=== PATIENT | female | born 1965 | race Caucasian/White ===

== ENCOUNTER 2020-08-01 15:41 | Observation (INO) | payer BC ==
--- OUTSIDE RECORDS SUMMARY | 2020-08-01 15:43 | XMS REPORT | Clinical Summary ---
:1965 Author Organization [facility] Address [address] [place] [address] Care Team Providers Name Role Phone Dori Hussein MD Primary Care Provider Allergies No Known Active Allergies Medications No known medications Active Problems Not on file Surgical History Surgery Date Site/Laterality Comments RIB FRACTURE SURGERY Medical History Medical History Date Comments Diabetes mellitus (HCC) High cholesterol Hypertension Social History Tobacco Use Types Packs/Day Years Used Date Never Smoker Alcohol Use Drinks/Week oz/Week Comments No Sex Assigned at Date Recorded Not on file Last Filed Vital Signs Not on file Plan of Treatment Health Maintenance Due Date Last Done Comments CERVICAL CANCER SCREENING 1984 BREAST CANCER SCREENING 2013 COLONOSCOPY SCREENING 2013 SHINGLES VACCINES (#1) 2013 INFLUENZA VACCINE 05/06/2020 Results Not on fileafter 08/01/2019 Advance Directives For more information, please contact: [phone] Type Date Recorded Patient Real Estate Legal Assistant Explanati on Advance Directives, Living Will and Medical Power of Wildlife Removal Specialist
[2020-08-01 17:02] LABS: Basophils % 0.9 % (0-1.3); Hematocrit 48.5 % (36.0-45.0); MPV 8.5 fL (7.6-11.3); RBC Red Blood Cell Count 5.04 M/uL (3.86-4.86)
[2020-08-01 17:05] LABS: Protime INR 0.8
[2020-08-01] MEDS ORDERED: ENOXAPARIN 100 MG/ML SYR SQ ONE (17:08)
[2020-08-01] MEDS ORDERED: ASPIRIN 81 MG CHEWABLE TABLET ONE (17:08)
[2020-08-01 17:23] LABS: ALT/SGPT 38 U/L (12-78); AST/SGOT 16 U/L (15-37); Albumin 3.6 g/dL (3.4-5.0); Alkaline Phosphatase 100 U/L (45-117); BUN Blood Urea Nitrogen 19 mg/dL (7-18); Bicarbonate 28 mmol/L (21-32); Bilirubin Direct 0.2 mg/dL (0-0.2); Bilirubin Total 0.9 mg/dL (0.2-1.0); Glucose Level 153 mg/dL (74-106); Magnesium 2.2 mg/dL (1.8-2.4); NT PRO-BNP 9 pg/mL (<125); Potassium 3.8 mmol/L (3.5-5.1); Protein, Total 7.6 g/dL (6.4-8.2); Sodium Level 140 mmol/L (136-145); Troponin (Emerg Dept Use Only) < 0.02 ng/mL (0.0-0.045)
--- NOTE | 2020-08-01 17:25 | RAD REPORT ---
EXAM DESCRIPTION: RAD - Chest Single View - 08/01/2020 5:07 pm CLINICAL HISTORY: CHEST PAIN Chest pain. COMPARISON: Chest Single View dated 10/15/2016; CHEST SINGLE VIEW dated 09/29/2014 FINDINGS: Portable technique limits examination quality. Minimal linear subsegmental atelectasis is present left lung base. The lungs are otherwise clear. The heart is normal in size. No displaced fractures. IMPRESSION: No acute intrathoracic process suspected.
[2020-08-01] MEDS ORDERED: NA CHLORIDE 0.9% 1,000 ML ONE (17:50)
--- NOTE | 2020-08-01 18:07 | RAD REPORT ---
EXAM DESCRIPTION: CT - Chest For Pe Angio - 08/01/2020 5:47 pm CLINICAL HISTORY: Chest pain. Dyspnea;Chest pain COMPARISON: No comparisons TECHNIQUE: CT angiogram of the pulmonary arteries was performed with MIP. All CT scans are performed using dose optimization technique as appropriate and may include automated exposure control or mA/KV adjustment according to patient size. FINDINGS: No evidence of pulmonary thromboembolism. No acute aortic finding demonstrated. The lungs are clear. No significant pericardial or pleural fluid. No concerning bony finding. Postsurgical changes are present about the stomach. IMPRESSION: No evidence of pulmonary thromboembolism. No acute lung findings.
--- NOTE | 2020-08-01 18:22 | EDPHYS ---
Physician Documentation [facility] Name: Cierra Sánchez Age: 54 yrs Sex: Female : 1965 Arrival Date: 08/01/2020 Time: 15:58 Bed 7 Private MD: LIAM Physician Tobias Morfin HPI: 08/01 16:45 This 54 yrs old Female presents to ER via Ambulatory with complaints of Chest kb Tightness, Shortness Of Breath. 16:45 The patient or guardian reports chest pain that is located primarily in the chest kb diffusely. Onset: today. The pain does not radiate. Associated signs and symptoms: Pertinent positives: shortness of breath. The chest pain is described as tightness. Duration: The patient or guardian reports a single episode, that is still ongoing. Modifying factors: The symptoms are alleviated by nothing. the symptoms are aggravated by nothing. Severity of pain: At its worst the pain was moderate in the emergency department the pain is unchanged. The patient has not experienced similar symptoms in the past. The patient has not recently seen a physician. Pt reports headache for 2 weeks with malaise. States she started having chest tightness and shortness of breath today so she came in. Had stress test and echo [address] Dyer. . Historical: - Allergies: 16:27 No Known Allergies; ca1 - Home Meds: 16:27 losartan 100 mg oral tab 1 tab once daily [Active]; Synthroid 150 mcg Oral tab 1 tab ca1 once daily for Hypothyroidism [Active]; Xigduo XR 10-500 mg oral TBph 1 tab once daily [Active]; Trulicity 1.5 mg/0.5 mL subcutaneous pnij 0.5 mL once wkly [Active]; atorvastatin 20 mg oral tab 1 tab once daily [Active]; Vitamin D3 2,000 unit Oral tab [Active]; venlafaxine 150 mg oral cp24 1 cap once daily [Active]; Zyrtec 10 mg Oral tab 1 tab once daily [Active]; - PMHx: 16:27 Diabetes - NIDDM; Hypertension; Hypothyroidism; seasonal allergies; sleep apena; Sleep ca1 Apnea; - PSHx: 16:27 Cholecystectomy; ; tummy tuck; upper rib resection; gastric sleeve; ca1 - Immunization history:: Adult Immunizations up to date, Flu vaccine is not up to date. It has been more than one year since last vaccine. - Social history:: Smoking status: Patient denies any tobacco usage or history of. ROS: 16:43 Constitutional: Negative for fever, chills, and weight loss, Abdomen/GI: Negative for kb abdominal pain, nausea, vomiting, diarrhea, and constipation, Back: Negative for injury and pain, MS/Extremity: Negative for injury and deformity, Skin: Negative for injury, rash, and discoloration. 16:43 Constitutional: Positive for malaise. 16:43 Cardiovascular: Positive for chest pain, Negative for edema, orthopnea, palpitations, paroxysmal nocturnal dyspnea. 16:43 Respiratory: Positive for shortness of breath, Negative for cough, dyspnea on exertion, hemoptysis, orthopnea, pleurisy, sputum production, wheezing. 16:43 Neuro: Positive for headache. Exam: 16:44 Constitutional: This is a well developed, well nourished patient who is awake, alert, kb and in no acute distress. Head/Face: Normocephalic, atraumatic. Chest/axilla: Normal chest wall appearance and motion. Nontender with no deformity. No lesions are appreciated. Cardiovascular: Regular rate and rhythm with a normal S1 and S2. No gallops, murmurs, or rubs. Normal PMI, no JVD. No pulse deficits. Respiratory: Lungs have equal breath sounds bilaterally, clear to auscultation and percussion. No rales, rhonchi or wheezes noted. No increased work of breathing, no retractions or nasal flaring. Abdomen/GI: Soft, non-tender, with normal bowel sounds. No distension or tympany. No guarding or rebound. No evidence of tenderness throughout. Skin: Warm, dry with normal turgor. Normal color with no rashes, no lesions, and no evidence of cellulitis. MS/ Extremity: Pulses equal, no cyanosis. Neurovascular intact. Full, normal range of motion. Neuro: Awake and alert, GCS 15, oriented to person, place, time, and situation. Cranial nerves II-XII grossly intact. Motor strength 5/5 in all extremities. Sensory grossly intact. Cerebellar exam normal. Normal gait. Vital Signs: 16:18 BP 142 / 84; Pulse 111; Resp 17 S; Temp 98.4(TE); Pulse Ox 99% on R/A; Weight 99.79 kg ca1 (R); Height 5 ft. 8 in. (172.72 cm) (R); Pain 3/10; 17:30 BP 123 / 81; Pulse 98; Resp 14; Pulse Ox 97% on R/A; tw2 18:15 BP 117 / 73; Pulse 94; Resp 14; Pulse Ox 100% on R/A; tw2 20:41 BP 118 / 72; Pulse 86; Resp 18; Pulse Ox 97% on R/A; ea 21:24 BP 119 / 72; Pulse 83; Resp 19; Pulse Ox 97% on R/A; ea 16:18 Body Mass Index 33.45 (99.79 kg, 172.72 cm) ca1 MDM: 16:31 Patient medically screened. kb 16:42 ECG:. The patient was given aspirin in the Emergency Department. Data reviewed: vital kb signs, nurses notes. Data interpreted: Pulse oximetry: on room air is 99 %. Interpretation: normal. 18:18 Counseling: I had a detailed discussion with the patient and/or guardian regarding: the kb historical points, exam findings, and any diagnostic results supporting the discharge/admit diagnosis, lab results, radiology results, the need for further work-up and treatment in the hospital. Physician consultation: Garrick SEVILLA was contacted at 18:19, regarding admission, to the telemetry unit. patient's condition, and will see patient in ED, shortly. 08/01 16:36 Order name: Basic Metabolic Panel; Complete Time: 17:28 kb 08/01 16:36 Order name: CBC with Diff; Complete Time: 17:12 kb 08/01 16:36 Order name: LFT's; Complete Time: 17:28 kb 08/01 16:36 Order name: Magnesium; Complete Time: 17:28 kb 08/01 16:36 Order name: NT PRO-BNP; Complete Time: 17:28 kb 08/01 16:36 Order name: PT-INR; Complete Time: 17:13 kb 08/01 16:36 Order name: Troponin (emerg Dept Use Only); Complete Time: 17:28 kb 08/01 16:36 Order name: XRAY Chest (1 view); Complete Time: 17:29 kb 08/01 16:36 Order name: D-Dimer; Complete Time: 17:13 kb 08/01 17:13 Order name: CT Chest For PE Angio; Complete Time: 18:10 kb 08/01 19:13 Order name: COVID-19 ar5 08/01 19:37 Order name: CORONAVIRUS EDMD 08/01 20:46 Order name: SARS-COV-2 RT PCR EDMD 08/01 16:27 Order name: EKG; Complete Time: 16:28 ca1 08/01 16:27 Order name: EKG - Nurse/Tech; Complete Time: 16:27 ca1 08/01 16:36 Order name: Cardiac monitoring; Complete Time: 16:41 kb 08/01 16:36 Order name: IV Saline Lock; Complete Time: 16:55 kb 08/01 16:36 Order name: Labs collected and sent; Complete Time: 16:55 kb 08/01 16:36 Order name: O2 Per Protocol; Complete Time: 16:41 kb 08/01 16:36 Order name: O2 Sat Monitoring; Complete Time: 16:41 kb Administered Medications: 16:59 Drug: Aspirin Chewable Tablet 324 mg Route: PO; tw2 17:29 Follow up: Response: No adverse reaction tw2 16:59 Drug: Lovenox 1 mg/kg Route: Sub-Q; Site: right lower abdomen; tw2 17:29 Follow up: Response: No adverse reaction tw2 18:15 Drug: NS 0.9% 1000 ml Route: IV; Rate: 1000 ml; Site: right antecubital; tw2 20:55 Follow up: Response: No adverse reaction; IV Status: Completed infusion; IV Intake: ea 1000ml Disposition: 08/02 11:59 Co-signature as Attending Physician, Tobias Morfin MD I agree with the assessment and [facility] plan of care. Disposition: 08/01/20 18:22 Hospitalization ordered by Danny Naylor for Observation. Preliminary diagnosis is Chest pain, unspecified. - Bed requested for Telemetry/MedSurg (observation). - Status is Observation. ea - Condition is Stable. - Problem is new. - Symptoms are unchanged. Signatures: Dispatcher [employer] [facility] Mariam Marsh, EXHIBITIONS CURATOR-C EXHIBITIONS CURATOR-Tobias Rodarte MD MD cha Lasagna, Tonya RN RN tl1 Tania Way RN RN tw2 Carole Gallo RN Farzaneh Duncan ea RN RN ca1 Corrections: (The following items were deleted from the chart) 08/01 21:27 18:22 Hospitalization Ordered by Danny Naylor DO for Observation. Preliminary tl1 diagnosis is Chest pain, unspecified. Bed requested for Telemetry/MedSurg (observation). Status is Observation. Condition is Stable. Problem is new. Symptoms are unchanged. kb 22:37 21:27 08/01/2020 18:22 Hospitalization Ordered by Danny Naylor DO for Observation. ea Preliminary diagnosis is Chest pain, unspecified. Bed requested for Telemetry/MedSurg (observation). Status is Observation. Condition is Stable. Problem is new. Symptoms are unchanged. tl1
--- NOTE | 2020-08-01 18:22 | ER ---
Nurse's Notes [facility] [place], [place] Name: Cierra Sánchez Age: 54 yrs Sex: Female : 1965 Arrival Date: 08/01/2020 Time: 15:58 Bed 7 Private MD: Diagnosis: Chest pain, unspecified Presentation: 08/01 16:18 Chief complaint: Patient states: Midsternal Chest pain started about noon, radiates to ca1 the R shoulder, intermittent, tight 12/13. Pt wrote on paper: For the past 2 - 3 weeks, has a headache, migraine, tip of head tingling and numb feeling, hands tingly sometimes, heart and chest feels heavy and full, my heart racing. I just don't feel well. face, ears and cheeks feel numb every once in a while. Breakout of sweaty feeling out of nowhere. A little anxious. Today, started SOB with chest pain. Coronavirus screen: Client denies travel out of the [place] in the last 14 days. fatigue, headache, shortness of breath, Client presents with at least one sign or symptom that may indicate coronavirus-19. Standard/surgical mask placed on the client. Provider contacted for isolation considerations. The client reports previous COVID testing was negative. Date of collection: June 2020. Ebola Screen: Patient negative for fever greater than or equal to 101.5 degrees Fahrenheit, and additional compatible Ebola Virus Disease symptoms Patient denies exposure to infectious person. Patient denies travel to an Ebola-affected area in the 21 days before illness onset. No symptoms or risks identified at this time. Initial Sepsis Screen: Does the patient meet any 2 criteria? No. Patient's initial sepsis screen is negative. Does the patient have a suspected source of infection? No. Patient's initial sepsis screen is negative. Risk Assessment: Do you want to hurt yourself or someone else? Patient reports no desire to harm self or others. Onset of symptoms was August 01, 2020. 16:18 Method Of Arrival: Ambulatory ca1 16:18 Acuity: EMI 3 ca1 Triage Assessment: 16:27 Cardiovascular: Rhythm is sinus tachycardia. ca1 Historical: - Allergies: 16:27 No Known Allergies; ca1 - Home Meds: 16:27 losartan 100 mg oral tab 1 tab once daily [Active]; Synthroid 150 mcg Oral tab 1 tab ca1 once daily for Hypothyroidism [Active]; Xigduo XR 10-500 mg oral TBph 1 tab once daily [Active]; Trulicity 1.5 mg/0.5 mL subcutaneous pnij 0.5 mL once wkly [Active]; atorvastatin 20 mg oral tab 1 tab once daily [Active]; Vitamin D3 2,000 unit Oral tab [Active]; venlafaxine 150 mg oral cp24 1 cap once daily [Active]; Zyrtec 10 mg Oral tab 1 tab once daily [Active]; - PMHx: 16:27 Diabetes - NIDDM; Hypertension; Hypothyroidism; seasonal allergies; sleep apena; Sleep ca1 Apnea; - PSHx: 16:27 Cholecystectomy; ; tummy tuck; upper rib resection; gastric sleeve; ca1 - Immunization history:: Adult Immunizations up to date, Flu vaccine is not up to date. It has been more than one year since last vaccine. - Social history:: Smoking status: Patient denies any tobacco usage or history of. Screenin:30 Abuse screen: Denies threats or abuse. Nutritional screening: No deficits noted. tw2 Tuberculosis screening: No symptoms or risk factors identified. Fall Risk None identified. Assessment: 16:48 General: Appears in no apparent distress. obese, well groomed, Behavior is calm, tw2 cooperative, appropriate for age. Pain: Complains of pain in chest Pain radiates to right arm Pain began 3 hours ago. Neuro: Level of Consciousness is awake, alert, obeys commands, Oriented to person, place, time, situation. Cardiovascular: Heart tones S1 S2 Capillary refill < 3 seconds Patient's skin is warm and dry. Cardiovascular: Reports chest pain. Respiratory: Airway is patent Respiratory effort is even, unlabored, Respiratory pattern is regular, symmetrical, Breath sounds are clear bilaterally. GI: No signs and/or symptoms were reported involving the gastrointestinal system. Abdomen is round non-distended, obese, Bowel sounds present X 4 quads. : No signs and/or symptoms were reported regarding the genitourinary system. EENT: No signs and/or symptoms were reported regarding the EENT system. Derm: No signs and/or symptoms reported regarding the dermatologic system. Musculoskeletal: Range of motion: intact in all extremities. 17:30 Reassessment: Patient appears in no apparent distress at this time. No changes from tw2 previously documented assessment. Patient and/or family updated on plan of care and expected duration. Pain level reassessed. Patient is alert, oriented x 3, equal unlabored respirations, skin warm/dry/pink. 18:15 Reassessment: Patient appears in no apparent distress at this time. No changes from tw2 previously documented assessment. Patient and/or family updated on plan of care and expected duration. Pain level reassessed. Patient is alert, oriented x 3, equal unlabored respirations, skin warm/dry/pink. provider at bedside at this time. 19:30 Reassessment: Patient and/or family updated on plan of care and expected duration. Pain ea level reassessed. Patient is alert, oriented x 3, equal unlabored respirations, skin warm/dry/pink. 20:41 Reassessment: Patient and/or family updated on plan of care and expected duration. Pain ea level reassessed. Patient is alert, oriented x 3, equal unlabored respirations, skin warm/dry/pink. Awaiting on covid results. 21:18 Reassessment: Patient and/or family updated on plan of care and expected duration. Pain ea level reassessed. Patient is alert, oriented x 3, equal unlabored respirations, skin warm/dry/pink. Awaiting on room assignment. 21:45 Reassessment: Patient and/or family updated on plan of care and expected duration. Pain ea level reassessed. Patient is alert, oriented x 3, equal unlabored respirations, skin warm/dry/pink. Awaiting contract loader back for report. 22:37 Reassessment: Patient and/or family updated on plan of care and expected duration. Pain ea level reassessed. Patient is alert, oriented x 3, equal unlabored respirations, skin warm/dry/pink. Pt admitted to second floor, left ED via wheelchair per tech. Pt tolerating well. Vital Signs: 16:18 BP 142 / 84; Pulse 111; Resp 17 S; Temp 98.4(TE); Pulse Ox 99% on R/A; Weight 99.79 kg ca1 (R); Height 5 ft. 8 in. (172.72 cm) (R); Pain 3/10; 17:30 BP 123 / 81; Pulse 98; Resp 14; Pulse Ox 97% on R/A; tw2 18:15 BP 117 / 73; Pulse 94; Resp 14; Pulse Ox 100% on R/A; tw2 20:41 BP 118 / 72; Pulse 86; Resp 18; Pulse Ox 97% on R/A; ea 21:24 BP 119 / 72; Pulse 83; Resp 19; Pulse Ox 97% on R/A; ea 16:18 Body Mass Index 33.45 (99.79 kg, 172.72 cm) ca1 ED Course: 15:58 Patient arrived in ED. ds1 16:24 Triage completed. ca1 16:27 Arm band placed on right wrist. ca1 16:28 Placed in gown. Bed in low position. Adult w/ patient. school lunch monitor on. Pulse ox on. tw2 NIBP on. Warm blanket given. 16:30 Mariam Marsh FNP-C is PHCP. kb 16:31 Tobias Morfin MD is Attending Physician. kb 16:[address], RN is Primary Nurse. tw2 16:48 Inserted saline lock: 20 gauge in right antecubital area, using aseptic technique. tw2 Blood collected. Patient maintains SpO2 saturation greater than 95% on room air. 16:58 XRAY Chest (1 view) In Process Unspecified. EDMS 17:47 CT Chest For PE Angio In Process Unspecified. EDMS 18:21 Danny Naylor DO is Hospitalizing Provider. kb 19:00 Report given to BROOKE Randall. tw2 20:02 No provider procedures requiring assistance completed. Patient admitted, IV remains in ea place. 20:18 Primary Nurse role handed off by Tania Way RN mg2 20:39 Carole Gallo, BROOKE is Primary Nurse. ea Administered Medications: 16:59 Drug: Aspirin Chewable Tablet 324 mg Route: PO; tw2 17:29 Follow up: Response: No adverse reaction tw2 16:59 Drug: Lovenox 1 mg/kg Route: Sub-Q; Site: right lower abdomen; tw2 17:29 Follow up: Response: No adverse reaction tw2 18:15 Drug: NS 0.9% 1000 ml Route: IV; Rate: 1000 ml; Site: right antecubital; tw2 20:55 Follow up: Response: No adverse reaction; IV Status: Completed infusion; IV Intake: ea 1000ml Intake: 20:55 IV: 1000ml; Total: 1000ml. ea Outcome: 18:22 Decision to Hospitalize by Provider. kb 20:02 Instructed on the need for admit. ea 22:17 Admitted to Med/surg accompanied by tech, via wheelchair, room 218, with chart, Report ea called to Receiving nurse 22:17 Condition: stable 22:37 Patient left the ED. ea Signatures: Dispatcher [employer] [facility]PR Mariam Marsh, MACHINE FITTER-C MACHINE FITTER-Ckmana GuillenJody ds1 Tania Way RN RN tw2 Carole Gallo RN RN Ousmane Flor RN BROOKE mg2 Farzaneh Horan RN RN ca1 Corrections: (The following items were deleted from the chart) 22:37 22:18 Reassessment: Patient and/or family updated on plan of care and expected ea duration. Pain level reassessed. Patient is alert, oriented x 3, equal unlabored respirations, skin warm/dry/pink. Pt admitted to second floor, left ED via wheelchair per tech. Pt tolerating well. ea
--- NOTE | 2020-08-01 19:50 | P.HP ---
Certification for Inpatient Patient admitted to: Observation With expected LOS: <2 Midnights Patient will require the following post-hospital care: None Practitioner: I am a practitioner with admitting privileges, knowledge of patient current condition, hospital course, and medical plan of care. Services: Services provided to patient in accordance with Admission requirements found in Title 42 Section 412.3 of the Code of Federal Regulations <Garrick Rand - Last Filed: 08/01/20 19:47> Patient admitted to: Observation With expected LOS: <2 Midnights <Danny Naylor - Last Filed: 08/02/20 12:55> Patient History Date of Service: 08/01/20 Primary Care Provider: Dori Patel Reason for admission: Chest pain History of Present Illness: 54-year-old female with history of diabetes mellitus type 2, hypertension, hyperlipidemia, hypothyroidism presents emergency department for chest pain and palpitations. Patient reports that she is sitting at her desk at work and began to have a sensation of chest fullness in addition to palpitations and diaphoresis that lasted for approximately 1-2 hr. Patient reports pain was nonradiating, improved with rest. Patient had recent stress test/echocardiogram with Dr. Dyer approximately 2 months ago which was reported to be normal. Patient's initial workup in the emergency department was normal, patient in normal sinus rhythm, EKG with nonspecific findings, troponin negative D-dimer w as elevated at 651, CT PE protocol was negative for any acute findings.. ED provider wishes to admit patient for further evaluation and management. When I saw the patient in the emergency department she is awake, alert, oriented x3. Patient no longer having chest pain at this time. Patient is agreeable to observation admit for trending of troponins and to speak with cardiology in the morning. - Past Medical/Surgical History Diabetic: Yes -: Diabetes mellitus type 2 -: Hypertension -: Hyperlipidemia -: Hypothyroidism -: -: Tummy-tuck -: rib-resection -: carpal tunel Psychosocial/ Personal History: Patient lives at home with her - Family History Father -: Heart disease Notes: CHF Mother Notes: THYROID DISEASE Sister Notes: HYPOTHYROIDISM, DIABETES - Social History Smoking Status: Never smoker Alcohol use: Yes CD- Drugs: No Caffeine use: Yes Place of Residence: Home <Garrick Rand - Last Filed: 08/01/20 19:47> Date of Service: 08/02/20 Home medications list reviewed: Yes <Danny Naylor - Last Filed: 08/02/20 12:55> Allergies No Known Allergies Allergy (Verified 08/01/20 23:01) Home Medications: Cholecalciferol (Vitamin D3) [Vitamin D3] 5,000 unit PO DAILY 09/29/14 Losartan Potassium 50 mg PO DAILY 09/29/14 Atorvastatin Calcium [Lipitor*] 20 mg PO BEDTIME 08/01/20 Cetirizine HCl [Zyrtec] 10 mg PO DAILY 08/01/20 Dapagliflozin/Metformin HCl [Xigduo Xr 10 mg-500 mg Tablet] 1 each PO DAILY 08/01/20 Dulaglutide [Trulicity] 0.75 mg SQ EVERY 7TH DAY 08/01/20 Venlafaxine HCl [Venlafaxine HCl ER] 150 mg PO DAILY 08/01/20 Aspirin [Aspirin EC 81 MG] 81 mg PO DAILY #90 tablet. 08/02/20 Docosahexanoic AC/Epa [Fish Oil 1,000 MG CAP] 1 cap PO BID #60 cap 08/02/20 Levothyroxine Sodium [Synthroid] 0.125 mg PO DAILY #30 tablet 08/02/20 Review of Systems 10-point ROS is otherwise unremarkable Cardiovascular: Chest Pain, Palpitations <Garrick Rand - Last Filed: 08/01/20 19:47> Physical Examination - Physical Exam General: Alert, In no apparent distress HEENT: Atraumatic, PERRLA, Mucous membr. moist/pink Neck: Supple, 2+ carotid pulse no bruit, No LAD Respiratory: Clear to auscultation bilaterally, Normal air movement Cardiovascular: Regular rate/rhythm, Normal S1 S2 Gastrointestinal: Normal bowel sounds, No tenderness Musculoskeletal: No tenderness Integumentary: No rashes Neurological: Normal speech, Normal strength at 5/5 x4 extr, Normal tone, Normal affect - Studies Laboratory Data (last 24 hrs) 08/01/20 16:48: PT 9.5, INR 0.80 08/01/20 16:48: WBC 6.8, Hgb 16.3 H, Hct 48.5 H, Plt Count 215 08/01/20 16:48: Sodium 140, Potassium 3.8, BUN 19 H, Creatinine 0.90, Glucose 153 H, Magnesium 2.2, Total Bilirubin 0.9, AST 16, ALT 38, Alkaline Phosphatase 100 <Garrick Rand - Last Filed: 08/01/20 19:47> - Studies Laboratory Data (last 24 hrs) 08/01/20 16:48: PT 9.5, INR 0.80 08/01/20 16:48: WBC 6.8, Hgb 16.3 H, Hct 48.5 H, Plt Count 215 08/01/20 16:48: Sodium 140, Potassium 3.8, BUN 19 H, Creatinine 0.90, Glucose 153 H, Magnesium 2.2, Total Bilirubin 0.9, AST 16, ALT 38, Alkaline Phosphatase 100 <Danny Naylor - Last Filed: 08/02/20 12:55> Assessment and Plan - Plan Assessment Chest pain rule out ACS Diabetes mellitus type 2 Hypertension Hyperlipidemia Hypothyroidism Plan Chest pain rule out ACS: Cardiology consult in place, will try and troponins, monitor on telemetry. DVT prophylaxis Lovenox 40 mg subcutaneous once daily. Patient reportedly had recent stress test and echocardiogram which are not available for my viewing. These were reported to be negative. Continue home medications and add aspirin, metoprolol. Appreciate further input from cardiology. Diabetes mellitus type 2: A.c. HS Accu-Cheks, sliding scale insulin therapy. Hypertension: Continue home medications Hyperlipidemia: Continue home medications Hypothyroidism: Continue home medication. Discharge Plan: Home Plan to discharge in: 24 Hours - Advance Directives Does patient have a Living Will: No Does patient have a Durable POA for Healthcare: No - Code Status/Comfort Care Code Status Assessed: Yes (Full Code) Critical Care: No Time Spent Managing Pts Care (In Minutes): 55 <Garrick Rand - Last Filed: 08/01/20 19:47> - Plan Case discussed in detail with nurse pressure. Agree with evaluation and plan of care. Case discussed with Cardiology. No intervention needed at this time. Will plan for discharge. Please see discharge summary for details. <Danny Naylor - Last Filed: 08/02/20 12:55>
[2020-08-01] MEDS ORDERED: ATORVASTATIN 20 MG TAB PO SCH (22:41)
[2020-08-01] MEDS ORDERED: ACETAMINOPHEN 500 MG TAB PO PRN (22:41)
[2020-08-01] MEDS ORDERED: ONDANSETRON 4 MG/2 ML VIAL IV PRN (22:41)
[2020-08-01] MEDS: INSULIN -REGULAR HUMAN 50 UNIT/0.5 ML ML SQ SCH (22:41)
[2020-08-01 23:05] VITALS: BMI 35.6
[2020-08-01 23:27] VITALS: O2SAT 97
[2020-08-02 05:43] LABS: Basophils % 0.5 % (0-1.3); Hematocrit 45.2 % (36.0-45.0); Lymphocytes % 42.8 % (15.3-44.8); MPV 7.9 fL (7.6-11.3); RBC Red Blood Cell Count 4.65 M/uL (3.86-4.86)
[2020-08-02] MEDS ORDERED: METOPROLOL TAR 25 MG TAB PO SCH (06:00)
[2020-08-02] MEDS ORDERED: INFLUENZA VACCINE (for 3y+) 0.5 ML DOSE IMVAC ONE (06:00)
[2020-08-02 06:20] LABS: BUN Blood Urea Nitrogen 15 mg/dL (7-18); Bicarbonate 28 mmol/L (21-32); Glucose Level 121 mg/dL (74-106); HDL Cholesterol 61 mg/dL (40-60); LDL Cholesterol, Calculated 42 (<130); Phosphorus 3.5 mg/dL (2.5-4.9); Potassium 3.9 mmol/L (3.5-5.1); Sodium Level 143 mmol/L (136-145); Thyroid Stimulating Hormone 0.008 uIU/mL (0.360-3.740); Troponin I < 0.02 ng/mL (0.0-0.045)
[2020-08-02] MEDS ORDERED: LEVOTHYROXINE SOD 0.1 MG TAB PO SCH (06:30)
--- NOTE | 2020-08-02 07:21 | EKG ---
Test Date: 2020-08-01 Test Time: 16:18:26 Ensemble Member: DARION MEASUREMENT RESULTS: Intervals: Rate: 111 ND: 136 QRSD: 90 QT: 338 QTc: 459 [place]: P: 49 ND: 136 QRS: 83 T: 39 INTERPRETIVE STATEMENTS: Sinus tachycardia Nonspecific ST abnormality Abnormal ECG Compared to ECG 10/15/2016 19:04:02 ST (T wave) deviation now present Sinus rhythm no longer present Electronically Signed On 08-02-20 07:19:35 CDT by Hoang Dyer
[2020-08-02] MEDS: INSULIN -REGULAR HUMAN 50 UNIT/0.5 ML ML SQ SCH (07:30)
--- NOTE | 2020-08-02 08:22 | P.DS ---
Admission Date: 08/01/20 Discharge Date: 08/02/20 Primary Care Provider: Dr. Dori Patel([place], [place]) Disposition: ROUTINE DISCHARGE Discharge Condition: GOOD Reason for Admission: Chest pain Consultations: Cardiology-Dr. Dyer Procedures: COVID: Negative CT chest: FINDINGS: No evidence of pulmonary thromboembolism. No acute aortic finding demonstrated. The lungs are clear. No significant pericardial or pleural fluid. No concerning bony finding. Postsurgical changes are present about the stomach. IMPRESSION: No evidence of pulmonary thromboembolism. No acute lung findings. Medical Problem List: Chest pain atypical with palpitations Diabetes mellitus type 2 controlled Hypertension Hyperlipidemia Hypothyroidism Depression with anxiety Brief History of Present Illness: 54-year-old female with history of diabetes mellitus type 2, hyperten tigre, hyperlipidemia, and hypothyroidism. Patient presented with chest pain and palpitation. Patient had recent stress tests and echocardiogram done by Cardiology 2 months ago. Both were normal. Patient admitted for further evaluation and observation. Hospital Course: Patient presented with chest pain and palpitation. Patient admitted for further evaluation and treatment. D-dimer was slightly elevated. CT scan shows no pulmonary embolism or pneumonia. Cardiac enzymes unremarkable. Cardiology was consulted to further evaluate. Patient with recent cardiac stress test and echocardiogram which was unremarkable. Cardiology recommended no further cardiac inpatient evaluation. Her tsh was abnormal. Medication changes will be addressed. At discharge patient may continue with her current medications. Recommend follow up with cardiology in 1-2 weeks to follow up this hospitalization. Patient may continue with aspirin 81 mg daily. If chest pain persists patient may require heart catheterization as an outpatient. Patient with hypothyroidism. Patient had reported some palpitations. Tsh was abnormal at 0.008. Free T4 1.31. Patient previously on Synthroid 150 mcg daily. Will decrease medication at this time. At discharge she will continue with Synthroid 125 mcg daily. Recommend to recheck tsh and free T4 in 4-6 weeks to monitor her progress. Further adjustment in medication may be required at that time. This can be done with the help of her PCP. Patient with hyperlipidemia. LDL within normal range at 42. Triglyceride level slight elevated at 173. At discharge patient may continue with her Lipitor 20 mg daily. Will recommend to add fish oil 1000 mg twice daily. Recommend to continue with lifestyle modification education. Recommend to recheck fasting lipid panel in 4-6 weeks to monitor progress. Further adjustment may be required after that time. This can be addressed by cardiology or her PCP. Patient with hypertension. This has remained stable. At discharge she will continue with losartan 50 mg daily. Recommend blood pressure to maintain less than 130/80. Further adjustment can be done with the help of her PCP. Patient with diabetes mellitus type 2. This seems to be very well controlled. At discharge she will continue with her current medications of Xigduo 10/500 mg daily and Trulicity 1 injection every week. Recommend to maintain blood sugar less than 140 fasting and less than 200 after meals. Further adjustment can be done by her PCP. Recommend to recheck A1c every 3 months to monitor her progress. This can be done with the help of her PCP. Patient with depression and anxiety. At discharge she may continue with her current medication of Venlafaxine 150 mg daily. Vital Signs/Physical Exam: Temp Pulse Resp BP Pulse Ox 96.9 F 75 96 H 120/75 96 08/02/20 04:00 08/02/20 05:54 08/02/20 04:00 08/02/20 05:54 08/02/20 04:00 General: Alert, In no apparent distress, Oriented x3, Cooperative HEENT: Atraumatic Neck: Supple Respiratory: Clear to auscultation bilaterally, Normal air movement Cardiovascular: Normal pulses, Regular rate/rhythm Gastrointestinal: Normal bowel sounds, Soft and benign, Non-distended, No tenderness, No masses, No rebound, No guarding Integumentary: No tenderness/swelling, No erythema, No warmth, No cyanosis Neurological: Normal speech, Normal strength at 5/5 x4 extr, Normal tone, Normal affect Laboratory Data at Discharge: WBC 4.6 K/uL (4.3-10.9) D 08/02/20 05:23 Hgb 15.0 g/dL (12.0-15.0) 08/02/20 05:23 Hct 45.2 % (36.0-45.0) H 08/02/20 05:23 Plt Count 192 K/uL (152-406) 08/02/20 05:23 PT 9.5 SECONDS (9.5-12.5) 08/01/20 16:48 INR 0.80 08/01/20 16:48 Sodium 143 mmol/L (136-145) 08/02/20 05:23 Potassium 3.9 mmol/L (3.5-5.1) 08/02/20 05:23 BUN 15 mg/dL (7-18) 08/02/20 05:23 Creatinine 0.65 mg/dL (0.55-1.3) 08/02/20 05:23 Glucose 121 mg/dL (74-106) H 08/02/20 05:23 Phosphorus 3.5 mg/dL (2.5-4.9) 08/02/20 05:23 Magnesium 2.2 mg/dL (1.8-2.4) 08/01/20 16:48 Total Bilirubin 0.9 mg/dL (0.2-1.0) 08/01/20 16:48 AST 16 U/L (15-37) 08/01/20 16:48 ALT 38 U/L (12-78) 08/01/20 16:48 Alkaline Phosphatase 100 U/L (45-117) 08/01/20 16:48 Troponin I < 0.02 ng/mL (0.0-0.045) 08/02/20 05:23 Triglycerides 173 mg/dL (<150) H 08/02/20 05:23 Cholesterol 138 mg/dL (<200) 08/02/20 05:23 HDL Cholesterol 61 mg/dL (40-60) H 08/02/20 05:23 Cholesterol/HDL Ratio 2.26 08/02/20 05:23 Home Medications: Cholecalciferol (Vitamin D3) [Vitamin D3] 5,000 unit PO DAILY 09/29/14 Losartan Potassium 50 mg PO DAILY 09/29/14 Atorvastatin Calcium [Lipitor*] 20 mg PO BEDTIME 08/01/20 Cetirizine HCl [Zyrtec] 10 mg PO DAILY 08/01/20 Dapagliflozin/Metformin HCl [Xigduo Xr 10 mg-500 mg Tablet] 1 each PO DAILY 08/01/20 Dulaglutide [Trulicity] 0.75 mg SQ EVERY 7TH DAY 08/01/20 Venlafaxine HCl [Venlafaxine HCl ER] 150 mg PO DAILY 08/01/20 Aspirin [Aspirin EC 81 MG] 81 mg PO DAILY #90 tablet. 08/02/20 Docosahexanoic AC/Epa [Fish Oil 1,000 MG CAP] 1 cap PO BID #60 cap 08/02/20 Levothyroxine Sodium [Synthroid] 0.125 mg PO DAILY #30 tablet 08/02/20 New Medications: Aspirin [Aspirin EC 81 MG] 81 mg PO DAILY #90 tablet. Docosahexanoic AC/Epa [Fish Oil 1,000 MG CAP] 1 cap PO BID #60 cap Levothyroxine Sodium [Synthroid] 0.125 mg PO DAILY #30 tablet Patient Discharge Instructions: 1. Recommend follow up with her PCP in 1 week to follow up this hospitalization. 2. Patient presented with chest pain and palpitation. Patient admitted for further evaluation and treatment. D-dimer was slightly elevated. CT scan shows no pulmonary embolism or pneumonia. Cardiac enzymes unremarkable. Cardiology was consulted to further evaluate. Patient with recent cardiac stress test and echocardiogram which was unremarkable. Cardiology recommended no further cardiac inpatient evaluation. Her tsh was abnormal. Medication changes will be addressed. At discharge patient may continue with her current medications. Recommend follow up with cardiology in 1-2 weeks to follow up this hospitalization. Patient may continue with aspirin 81 mg daily. If chest pain persists patient may require heart catheterization as an outpatient. 3. Patient with hypothyroidism. Patient had reported some palpitations. Tsh was abnormal at 0.008. Free T4 1.31. Patient previously on Synthroid 150 mcg daily. Will decrease medication at this time. At discharge she will continue with Synthroid 125 mcg daily. Recommend to recheck tsh and free T4 in 4-6 weeks to monitor her progress. Further adjustment in medication may be required at that time. This can be done with the help of her PCP. 4. Patient with hyperlipidemia. LDL within normal range at 42. Triglyceride level slight elevated at 173. At discharge patient may continue with her Lipitor 20 mg daily. Will recommend to add fish oil 1000 mg twice daily. Recommend to continue with lifestyle modification education. Recommend to recheck fasting lipid panel in 4-6 weeks to monitor progress. Further adjustment may be required after that time. This can be addressed by cardiology or her PCP. 5. Patient with hypertension. This has remained stable. At discharge she will continue with losartan 50 mg daily. Recommend blood pressure to maintain less than 130/80. Further adjustment can be done with the help of her PCP. 6. Patient with diabetes mellitus type 2. This seems to be very well controlled. At discharge she will continue with her current medications of Xigduo 10/500 mg daily and Trulicity 1 injection every week. Recommend to maintain blood sugar less than 140 fasting and less than 200 after meals. Further adjustment can be done by her PCP. Recommend to recheck A1c every 3 months to monitor her progress. This can be done with the help of her PCP. 7. Patient with depression and anxiety. At discharge she may continue with her current medication of Venlafaxine 150 mg daily. Diet: AHA Activity: Ad eliana Followup: Dori Hussein MD [Primary Care Provider] - Time spent managing pt's care (in minutes): 55
[2020-08-02 08:33] VITALS: BP 116/68; TEMP 96.3
[2020-08-02] MEDS ORDERED: POTASSIUM CL SA 10 MEQ TAB PO ONE (09:00)
[2020-08-02] MEDS ORDERED: CETIRIZINE HCL 5 MG TABLET PO SCH (09:00)
[2020-08-02] MEDS ORDERED: ASPIRIN EC 81 MG TAB PO SCH (09:00)
[2020-08-02] MEDS ORDERED: VENLAFAXINE HCL XR 75 MG CAP PO SCH (09:00)
[2020-08-02] MEDS ORDERED: LOSARTAN POTASSIUM 50 MG TABLET PO SCH (09:00)
[2020-08-02] MEDS ORDERED: VITAMIN D 5,000 UNIT CAP PO SCH (09:00)
[2020-08-02] MEDS ORDERED: ENOXAPARIN 40 MG/0.4 ML SQ SCH (09:00)
--- NOTE | 2020-08-03 09:37 | CON ---
Date of Consultation: 08/02/2020 Reason For Consultation: Chest pain and palpitation. History Of Present Illness: Ms. Sánchez is a 54-year-old woman. She was admitted to Dr. Naylor. She normally sees Didi Dori Patel in [place]. The patient described feeling hot and flushed, had head ache. She felt some numbness in her teeth. She was nauseated after which she had palpitation. No s ignificant chest pain. Denied PND, orthopnea, pedal edema, palpitations, or syncope. Denied any fev er or chills. Her symptoms lasted about 30 to 45 minutes. Past Medical History: Negative. Allergies: NONE. Review of Systems: Noncontributory. Social History: Noncontributory. Family History: Negative. Medications: At home include venlafaxine, Lipitor, Xigduo, Trulicity, insulin, losartan and thyroid. Physical Examination: Vital Signs: Stable. She was afebrile. HEENT: Negative. Neck: Supple. No bruit. Chest: Clear to auscultation and percussion. Cardiac: Exam revealed a regular rhythm and rate. No murmurs, gallops, or rubs. Abdomen: Benign. Extremities: Revealed no clubbing, cyanosis, or edema. Diagnostic Data: Her glucose was 150. D-dimer 651. EKG is normal. Chest x-ray is normal. Troponi n is normal. Impression And Plan: Atypical chest pain with palpitation in a patient with history of dyslipidemia, diabetes, hypertension, and hypothyroidism. She has ruled out for an OR. Her symptoms are very aty pical. Ms. Sánchez I think can go home. I think she needs to have an outpatient echocardiogram a nd a MPI. I will make arrangements for that as an outpatient. From my standpoint, she can otherwise go home, and I will see her in the near future. FUNMILAYO/KRISTIE Voice ID: [id number] Report ID: [id number]
== END 2020-08-02 09:54 | disposition home or self-care (01) ==
LOC: ER 15:41 → ERHOLD 18:46 → 2ND 22:14
PROVIDERS: ADMIT Family Medicine; ATTEND Family Medicine
DX: R07.89 Other chest pain (principal); Z20.828 Contact with and (suspected) exposure to other viral communicable diseases; R00.0 Tachycardia, unspecified; R00.2 Palpitations; E11.9 Type 2 diabetes mellitus without complications; I10 Essential (primary) hypertension; E78.5 Hyperlipidemia, unspecified; E03.9 Hypothyroidism, unspecified; F41.8 Other specified anxiety disorders; Z79.84 Long term (current) use of oral hypoglycemic drugs; R94.31 Abnormal electrocardiogram [ECG] [EKG]; Z23 Encounter for immunization
CPT/HCPCS: 96361; 93005; 85025 ×2; 80048 ×2; 36415; 83735; 84100; 85610; 80061; 82947 ×2; 85379; 80076; 84443; 84484 ×3; 84439; 83880; 71275; 71045; 90471; 96360; 96372; 99285; U0003; Q9967; Q2035; J1650; J7030; G0378 ×2

== ENCOUNTER 2020-10-26 09:40 | Day surgery (SDC) | payer BC ==
[2020-10-20 10:43] VITALS: BMI 37.2
[2020-10-20 11:39] LABS: Absolute Lymphocytes (CBC) 1.9 K/uL (0.7-4.9); Basophils % 0.5 % (0-1.3); Hematocrit 48.2 % (36.0-45.0); MPV 8.6 fL (7.6-11.3); RBC Red Blood Cell Count 4.95 M/uL (3.86-4.86)
[2020-10-20 12:11] LABS: Potassium 4.5 mmol/L (3.5-5.1)
[2020-10-20 12:19] LABS: Protime INR 0.97
[~2020-10-26 09:40] MED LIST: HEPA 1000U/500MLS 0 UNIT/0 ML BAG IV ONE
[2020-10-26] MEDS ORDERED: LIDOCAINE 1% 20 ML MDV ONE (09:50)
[2020-10-26] MEDS ORDERED: HEPA 1000U/500MLS 2,000 UNIT/1,000 ML BAG IV ONE (09:50)
--- OUTSIDE RECORDS SUMMARY | 2020-10-26 10:02 | XMS REPORT | Clinical Summary ---
:1965 Author Organization [facility] Address [address] [place] [address] Care Team Providers Name Role Phone Dori [...] Health Maintenance Due Date Last Done Comments COVID-19 VACCINE (1 of 2) 1979 CERVICAL CANCER SCREENING 1984 BREAST CANCER SCREENING 2013 COLONOSCOPY SCREENING 2013 SHINGLES VACCINES (#1) 2013 INFLUENZA VACCINE 05/06/2020 Results Not on fileafter 10/26/2019 Advance Directives For more information, please contact: [phone] Type Date Recorded Patient Contracts Officer Explanati on Advance Directives, Living Will and Medical Power of Child Therapist
--- OUTSIDE RECORDS SUMMARY | 2020-10-26 10:02 | XMS REPORT | Continuity of Care Document ---
:1965 Author Organization [facility] t Address [address] [place] [address] Care Team Providers Name Role Phone Jessica Hussein MD Primary Care Physician Jessica Hussein Attending Clinician [phone] Problems This patient has no known problems. Allergies, Adverse Reactions, Alerts This patient has no known allergies or adverse reactions. Social History Social Habit Start Date Stop Date Quantity Comments Source Sex Assigned At [facility] ethodi Alcohol intake 2017-01-28 2017-01-28 Current [facility] 00:00:00 00:00:00 non-drinker of alcohol (finding) Smoking Status Start Date Stop Date Source Never smoker [facility] Medications This patient has no known medications. Procedures This patient has no known procedures. Plan of Care Planned Activity Planned Date Details Comments Source Future Scheduled 2020-05-06 INFLUENZA VACCINE [facility] 00:00:00 [code = INFLUENZA VACCINE] Future Scheduled 2013 BREAST CANCER [facility] 00:00:00 SCREENING [code = BREAST CANCER SCREENING] Future Scheduled 2013 COLONOSCOPY SCREENING [facility] 00:00:00 [code = COLONOSCOPY SCREENING] Future Scheduled 2013 SHINGLES VACCINES [place] [facility] 00:00:00 (#1) [code = SHINGLES VACCINES (#1)] Future Scheduled 1984 Screening for [facility] 00:00:00 malignant neoplasm of cervix (procedure) [code = 462714405] Future Scheduled 1979 COVID-19 VACCINE (1 [place] [facility] 00:00:00 of 2) [code = COVID-19 VACCINE (1 of 2)] Encounters Start End Encounter Admission Attending Care Care Encounter Source Date/Time Date/Time Type Type Clinicians Facility Department ID 2020-10-18 2020-10-18 Outpatient Dori Hussein [facility] 06b [id number] 00:00:00 00:00:00 Jessica [id number] Results This patient has no known results.
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
[2020-10-26] MEDS ORDERED: NA CHLORIDE 0.9% 500 ML ONE (10:14)
[2020-10-26] MEDS ORDERED: MIDAZOLAM HCL 2 MG/2 ML INJ ONE (10:51)
[2020-10-26] MEDS ORDERED: FENTANYL CITR 100 MCG/2 ML ONE (10:51)
[2020-10-26] MEDS ORDERED: HEPARIN 5000 UNIT/ML 1 ML VIAL ONE ×2 (10:52→10:54)
[2020-10-26] MEDS ORDERED: NICARDIPINE HCL 25 MG/10 ML IV ONE (10:53)
[2020-10-26] MEDS ORDERED: ATROPINE SULF 1 MG/10 ML SYR IV ONE (10:53)
[2020-10-26] MEDS ORDERED: NITROGLYCERIN 100 MCG/ML SYR (for cath lab use only) IV ONE (11:08)
[2020-10-26] MEDS ORDERED: NITROGLYCERIN/D5W 25 MG/250 ML BTL IV ONE (11:09)
[2020-10-26] MEDS ORDERED: VERAPAMIL HCL 10 MG/4 ML VIAL IV ONE (11:09)
--- NOTE | 2020-10-26 12:22 | OP ---
Date of Procedure: 10/26/2020 Surgeon: NIYAH WATSON Procedure Performed: 1.Selective coronary angiogram. 2.Left heart catheterization. Indication: Unstable angina. Access: Right radial artery 6-Indonesian, closed with TR band. Complications: None. Bleeding: Less than 5 mL. Anesthesia: Total sedation time was 15 minutes. Description Of Procedure: After risks, benefits, and alternatives were explained, the patient agreed to procedure and signed informed consent. The patient was brought into the cardiac catheterization laboratory, prepped and draped in usual sterile fashion. Then, we used fentanyl and Versed in increm ental doses to achieve adequate moderate sedation. Then, we accessed the right radial artery using p [employer] micropuncture kit and placed a 6-Indonesian slender sheath and then took a 5-Indonesian [place] cathet er into the aortic root, engaged left main, then right coronary artery and took standard views and th en the catheter was pushed across aortic valve over the wire into the LV. LVEDP was measured. Then upon pullback, there was no difference in gradient. Findings: 1.Left main is large and normal. 2.LAD is large and normal. 3.Left circumflex is moderate-sized, normal, and non dominant. 4.RCA is large dominant, no significant disease. 5.LVEDP of 9 mmHg. Impression: 1.Normal coronary arteries. 2.Normal LVEDP at 9 mmHg. Recommendations: 1.Medical management. 2.Discharge home once criteria met. SR/MODL Voice ID: [id number] Report ID: [id number]
[2020-10-26 14:30] VITALS: BP 117/80; TEMP 97.3; O2SAT 98
--- NOTE | 2020-11-27 21:18 | HP ---
Date of Admission: 10/26/2020 Chief Complaint: The patient is here for heart catheterization due to unstable angina. History Of Present Illness: This is a middle-aged female, history of diabetes, hypertension, dyslipi demia with symptoms suggestive of unstable angina, scheduled as an outpatient for coronary angiogram. She is asymptomatic today. Past Medical History: Diabetes, hypertension, hyperlipidemia, hypothyroidism. Medications: Refer to reconciliation sheet for detailed list. Allergies: NO KNOWN DRUG ALLERGIES. Social History: Does not smoke or drink. Does not use any drugs. Family History: No premature coronary artery disease or cancer. Review of Systems: All systems reviewed and they were negative except for what mentioned in the HPI. Physical Examination: Vital Signs: Temperature is 97.3, pulse 75, breathing 18, blood pressure is 117/80, saturating 98% o n room air. General: Pleasant middle-aged female, in no apparent distress. Head and Neck: Pupils are equal, reactive to light. Intact eye movements. No JVD. No cervical lym phadenopathy. Neck: Supple. Thyroid is not enlarged. Lungs: Clear to auscultation bilaterally. No rhonchi, rales, or crackles. No accessory muscle use. Heart: Regular rate and rhythm. No extra sounds. Abdomen: Soft, nontender. Bowel sounds positive. No organomegaly or cyanosis. Extremities: No edema, clubbing, or cyanosis. Intact pulses. Skin: No rashes. Neurologic: Alert, awake, oriented x3. No acute focal deficits appreciated. Lymph Nodes: No cervical lymphadenopathy. Investigations: Labs were reviewed. Assessment And Plan: Unstable angina. Plan: To proceed with coronary angiogram and left heart catheterization as planned. /KRISTIE Voice ID: [id number]
== END 2020-10-26 14:30 | disposition home or self-care (01) ==
LOC: CCL 09:40
PROVIDERS: ATTEND Internal Medicine
DX: I20.0 Unstable angina (principal); Z20.822 Contact with and (suspected) exposure to COVID-19
CPT/HCPCS: 85025; 80048; 36415; 85610; 82947; 85730; 93458; U0002; C1893; J1644 ×2; J2250; J3010; J7040

== ENCOUNTER 2021-02-25 17:46 | Emergency (ER) | payer BC ==
--- OUTSIDE RECORDS SUMMARY | 2021-02-25 17:49 | XMS REPORT | Continuity of Care Document ---
:1965 Author Organization [facility] t Address [address] [place] [address] Care Team Providers Name Role Phone Jessica Hussein MD Primary Care Physician Jessica Hussein Attending Clinician [phone] Problems This patient has no known problems. Allergies, Adverse Reactions, Alerts This patient has no known allergies or adverse reactions. Social History Social Habit Start Date Stop Date Quantity Comments Source Alcohol intake 2017-01-28 2017[facility]01-[facility] non-drinker of alcohol (finding) Sex Ass[birth year] [facility] 00:00:00 00:00:00 Smoking Status Start Date Stop Date Source Never smoker [facility] Medications This patient has no known medications. Procedures This patient has no known procedures. Plan of Care Planned Activity Planned Date Details Comments Source Future Scheduled 2021-05-06 INFLUENZA VACCINE [place] [facility] 00:00:00 [code = INFLUENZA VACCINE] Future Scheduled 2013 BREAST CANCER [facility] Test 00:00:00 SCREENING [code = BREAST CANCER SCREENING] Future Scheduled 2013 COLONOSCOPY SCREENING [facility] 00:00:00 [code = COLONOSCOPY SCREENING] Future Scheduled 2013 SHINGLES VACCINES [place] [facility] 00:00:00 (#1) [code = SHINGLES VACCINES (#1)] Future Scheduled 1984 [facility] malignant neoplasm of cervix (procedure) [code = 992445364] Future Scheduled 1975 COVID-19 VACCINE (1) [facility] 00:00:00 [code = COVID-19 VACCINE (1)] Encounters Start End Encounter Admission Attending Care Care Encounter Source Date/Time Date/Time Type Type Clinicians Facility Department ID 2021-01-01 2021-01-01 Outpatient Dori Hussein [facility] [id number] 00:00:00 00:00:00 Jessica [id number] 2020-12-06 2020-12-06 Outpatient Dori Hussein [facility] [id number] 00:00:00 00:00:00 Jessica [id number] 2020-11-08 2020-11-08 Outpatient Dori Hussein [facility] [id number] 00:00:00 00:00:00 Jessica [id number] 2020-10-18 2020-10-18 Outpatient Dori Hussein [facility] [id number] 00:00:00 00:00:00 Jessica [id number] Results This patient has no known results.
[2021-02-25 18:52] LABS: Absolute Lymphocytes (CBC) 0.8 K/uL (0.7-4.9); Basophils % 0.3 % (0-1.3); Hematocrit 47.7 % (36.0-45.0); Lymphocytes % 14.5 % (15.3-44.8); MPV 8.2 fL (7.6-11.3); RBC Red Blood Cell Count 4.93 M/uL (3.86-4.86)
[2021-02-25] MEDS ORDERED: NA CHLORIDE 0.9% 1,000 ML ONE (18:59)
[2021-02-25] MEDS ORDERED: MORPHINE 4 MG/ML SYR ONE (18:59)
[2021-02-25 19:12] LABS: ALT/SGPT 45 U/L (12-78); Albumin 3.6 g/dL (3.4-5.0); Alkaline Phosphatase 72 U/L (45-117); BUN Blood Urea Nitrogen 11 mg/dL (7-18); Bicarbonate 26 mmol/L (21-32); Bilirubin Direct 0.2 mg/dL (0-0.2); Bilirubin Total 1.3 mg/dL (0.2-1.0); Glucose Level 142 mg/dL (74-106); Lipase 59 U/L (73-393); Protein, Total 7.7 g/dL (6.4-8.2); Sodium Level 137 mmol/L (136-145)
[2021-02-25 19:14] LABS: AST/SGOT 32 U/L (15-37)
--- NOTE | 2021-02-25 19:28 | RAD REPORT ---
EXAM DESCRIPTION: CT - Abdomen Pelvis W Contrast - 02/25/2021 7:15 pm CLINICAL HISTORY: Abdominal pain COMPARISON: July 2020 TECHNIQUE: Computed axial tomography of the abdomen pelvis was obtained. 100 cc Isovue-300 was admin istered intravenously. Oral contrast was not requested which limits evaluation of bowel. All CT scans are performed using dose optimization technique as appropriate and may include automated exposure control or mA/KV adjustment according to patient size. FINDINGS: Fatty liver. Cholecystectomy Postsurgical changes involve stomach. Spleen, pancreas, adrenals and right kidney unremarkable. 3.6 centimeters cyst extends off of the lef t kidney. There is no evidence of diverticulitis. Normal appendix. No adnexal mass IMPRESSION: No acute abnormality is displayed.
--- NOTE | 2021-02-25 19:40 | ER ---
Nurse's Notes [facility] Name: Ceirra Sánchez Age: 55 yrs Sex: Female : 1965 Arrival Date: 02/25/2021 Time: 17:48 Bed 15 Private MD: Diagnosis: Nausea and vomiting;Diarrhea, unspecified;Generalized abdominal pain Presentation: 02/25 18:00 Chief complaint: Patient states: Pt states she started having cramping stomach pain, ae4 diarrhea, vomiting, and nausea. C/o headache and fatigue. Coronavirus screen: Client denies travel out of the [place] in the last 14 days. Client presents with at least one sign or symptom that may indicate coronavirus-19. Standard/surgical mask placed on the client. Ebola Screen: Patient denies travel to an Ebola-affected area in the 21 days before illness onset. No symptoms or risks identified at this time. Initial Sepsis Screen: Does the patient meet any 2 criteria? HR > 90 bpm. No. Patient's initial sepsis screen is negative. Risk Assessment: Do you want to hurt yourself or someone else? Patient reports no desire to harm self or others. Onset of symptoms was February 24, 2021. 18:00 Method Of Arrival: Ambulatory ae4 18:00 Acuity: EMI 3 ae4 19:05 Initial Sepsis Screen: Does the patient have a suspected source of infection? Yes: wh Acute abdominal pain. Triage Assessment: 18:06 General: Appears in no apparent distress. uncomfortable, obese, Behavior is ae4 cooperative, flat, quiet. Pain: Complains of pain in abdomen. GI: Reports lower abdominal pain, upper abdominal pain, diarrhea, nausea, vomiting. Historical: - Allergies: 18:06 No Known Allergies; ae4 - Home Meds: 18:06 atorvastatin 20 mg Oral tab 1 tab once daily [Active]; losartan 100 mg Oral tab 1 tab ae4 once daily [Active]; Synthroid 150 mcg Oral tab 1 tab once daily for Hypothyroidism [Active]; Trulicity 1.5 mg/0.5 mL subcutaneous pnij 0.5 mL once wkly [Active]; venlafaxine 150 mg Oral cp24 1 cap once daily [Active]; Vitamin D3 2,000 unit Oral tab [Active]; Xigduo XR 10-500 mg Oral TBph 1 tab once daily [Active]; Zyrtec 10 mg Oral tab 1 tab once daily [Active]; - PMHx: 18:06 Diabetes - NIDDM; Hypertension; Hypothyroidism; seasonal allergies; sleep apena; Sleep ae4 Apnea; - PSHx: 18:06 ; rib resection; Cholecystectomy; ae4 - Immunization history:: Client reports having NOT received the Covid vaccine. Last tetanus immunization: < 10 years ago Flu vaccine is up to date. - Social history:: Smoking status: Patient denies any tobacco usage or history of. Screenin:05 Abuse screen: Denies threats or abuse. Denies injuries from another. Nutritional wh screening: No deficits noted. Tuberculosis screening: No symptoms or risk factors identified. Fall Risk None identified. Assessment: 19:05 General: Appears in no apparent distress. Behavior is calm, cooperative, appropriate wh for age. Pain: Complains of pain in abdomen Quality of pain is described as crampy. Neuro: Level of Consciousness is awake, alert, obeys commands, Oriented to person, place, time, situation, Appropriate for age. Cardiovascular: Heart tones S1 S2. Respiratory: Airway is patent Respiratory effort is even, unlabored, Respiratory pattern is regular, symmetrical. Respiratory: Breath sounds are clear bilaterally. GI: Abdomen is flat, non-distended, Bowel sounds present X 4 quads. Abd is soft and non tender X 4 quads. Reports cramping, diarrhea, nausea, vomiting. : No signs and/or symptoms were reported regarding the genitourinary system. EENT: No signs and/or symptoms were reported regarding the EENT system. Derm: Skin is intact, is healthy with good turgor, Skin is pink, warm \T\ dry. normal. Musculoskeletal: Circulation, motion, and sensation intact. Vital Signs: 18:00 BP 137 / 80; Pulse 92; Resp 16; Temp 98.7; Pulse Ox 97% on R/A; Weight 113.4 kg (R); ae4 Height 5 ft. 8 in. (172.72 cm); Pain 4/10; 19:30 BP 129 / 72; Pulse 85; Resp 18; Pulse Ox 98% on R/A; wh 18:00 Body Mass Index 38.01 (113.40 kg, 172.72 cm) ae4 ED Course: 17:48 Patient arrived in ED. ds1 18:03 Triage completed. ae4 18:06 Arm band placed on right wrist. ae4 18:08 Mari[facility] Marsh [facility]C [facility] kb 18:08 Rossy Preston MD is Attending Physician. kb 18:13 Marilyn Wylie, RN is Primary Nurse. tr6 18:37 Inserted saline lock: 20 gauge in right antecubital area, using aseptic technique. tr6 Blood collected. 18:55 Inserted saline lock: 20 gauge in left antecubital area, using aseptic technique. dh3 19:05 Patient has correct armband on for positive identification. Bed in low position. Call light in reach. Side rails up X 1. Pulse ox on. NIBP on. 19:16 CT Abd/Pelvis - IV Contrast Only In Process Unspecified. EDMS 20:05 No provider procedures requiring assistance completed. IV discontinued, intact, bleeding controlled, No redness/swelling at site. Administered Medications: 18:46 Drug: morphine 4 mg Route: IVP; Site: right antecubital; tr6 20:06 Follow up: Response: No adverse reaction; Pain is decreased; RASS: Alert and Calm (0) 18:47 Drug: NS 0.9% 1000 ml Route: IV; Rate: 1000 ml; Site: right antecubital; tr6 20:06 Follow up: Response: No adverse reaction; IV Status: Completed infusion 18:47 Drug: Zofran (Ondansetron) 4 mg Route: IVP; Site: right antecubital; tr6 20:06 Follow up: Response: No adverse reaction; Nausea is decreased Outcome: 19:39 Discharge ordered by . kb 20:05 Discharged to home via wheelchair, with family. 20:05 Condition: stable 20:05 Discharge instructions given to patient, family, Instructed on discharge instructions, follow up and referral plans. medication usage, POC Demonstrated understanding of instructions, follow-up care, medications, POC Prescriptions given X 2. 20:06 Patient left the ED. Signatures: Dispatcher [employer] EDCT Mariam Marsh FNP-C [facility] [employer]EDER-Jody Montoya Deanna 3 Kian Cooper RN RN Natan Lake RN RN ae4 Marilyn Wylie, RN RN tr6
--- NOTE | 2021-02-25 19:40 | EDPHYS ---
Physician Documentation [facility] Name: Cierra Sánchez Age: 55 yrs Sex: Female : 1965 Arrival Date: 02/25/2021 Time: 17:48 Bed 15 Private MD: ED Physician Rossy Preston HPI: 02/25 19:35 This 55 yrs old Female presents to ER via Ambulatory with complaints of kb Abdominal Pain, Back Pain, Eye Pain. 19:35 The patient presents with abdominal pain that is diffuse. Onset: The symptoms/episode kb began/occurred yesterday. The symptoms do not radiate. Associated signs and symptoms: Pertinent positives: nausea, vomiting, and diarrhea, fever. The symptoms are described as constant. Modifying factors: The symptoms are alleviated by nothing, the symptoms are aggravated by nothing. Severity of pain: At its worst the pain was mild moderate in the emergency department the pain is unchanged. The patient has not experienced similar symptoms in the past. The patient has not recently seen a physician. Historical: - Allergies: 18:06 No Known Allergies; ae4 - Home Meds: 18:06 atorvastatin 20 mg Oral tab 1 tab once daily [Active]; losartan 100 mg Oral tab 1 tab ae4 once daily [Active]; Synthroid 150 mcg Oral tab 1 tab once daily for Hypothyroidism [Active]; Trulicity 1.5 mg/0.5 mL subcutaneous pnij 0.5 mL once wkly [Active]; venlafaxine 150 mg Oral cp24 1 cap once daily [Active]; Vitamin D3 2,000 unit Oral tab [Active]; Xigduo XR 10-500 mg Oral TBph 1 tab once daily [Active]; Zyrtec 10 mg Oral tab 1 tab once daily [Active]; - PMHx: 18:06 Diabetes - NIDDM; Hypertension; Hypothyroidism; seasonal allergies; sleep apena; Sleep ae4 Apnea; - PSHx: 18:06 ; rib resection; Cholecystectomy; ae4 - Immunization history:: Client reports having NOT received the Covid vaccine. Last tetanus immunization: < 10 years ago Flu vaccine is up to date. - Social history:: Smoking status: Patient denies any tobacco usage or history of. ROS: 19:34 Cardiovascular: Negative for chest pain, palpitations, and edema, Respiratory: Negative kb for shortness of breath, cough, wheezing, and pleuritic chest pain. 19:34 Constitutional: Positive for fatigue, malaise. 19:34 Abdomen/GI: Positive for abdominal pain, nausea, vomiting, and diarrhea. 19:34 All other systems are negative. Exam: 19:35 Constitutional: This is a well developed, well nourished patient who is awake, alert, kb and in no acute distress. Head/Face: Normocephalic, atraumatic. ENT: Moist Mucous membranes Cardiovascular: Regular rate and rhythm with a normal S1 and S2. No gallops, murmurs, or rubs. No pulse deficits. Respiratory: Respirations even and unlabored. No increased work of breathing, no retractions or nasal flaring. Back: No spinal tenderness. No costovertebral tenderness. Full range of motion. Skin: Warm, dry with normal turgor. Normal color. MS/ Extremity: Pulses equal, no cyanosis. Neurovascular intact. Full, normal range of motion. Neuro: Awake and alert, GCS 15, oriented to person, place, time, and situation. Moves all extremities. Normal gait. Psych: Awake, alert, with orientation to person, place and time. Behavior, mood, and affect are within normal limits. 19:35 Abdomen/GI: Inspection: abdomen appears normal, Bowel sounds: normal, in all quadrants, Palpation: soft, in all quadrants, mild abdominal tenderness, in the right lower quadrant. Vital Signs: 18:00 BP 137 / 80; Pulse 92; Resp 16; Temp 98.7; Pulse Ox 97% on R/A; Weight 113.4 kg (R); ae4 Height 5 ft. 8 in. (172.72 cm); Pain 4/10; 19:30 BP 129 / 72; Pulse 85; Resp 18; Pulse Ox 98% on R/A; wh 18:00 Body Mass Index 38.01 (113.40 kg, 172.72 cm) ae4 MDM: 18:08 Patient medically screened. kb 19:34 Data reviewed: vital signs, nurses notes. Data interpreted: Pulse oximetry: on room air kb is 97 %. Interpretation: normal. Counseling: I had a detailed discussion with the patient and/or guardian regarding: the historical points, exam findings, and any diagnostic results supporting the discharge/admit diagnosis, lab results, radiology results, the need for outpatient follow up, a family practitioner, to return to the emergency department if symptoms worsen or persist or if there are any questions or concerns that arise at home. 02/25 18:24 Order name: Basic Metabolic Panel; Complete Time: 19:33 hb 02/25 18:24 Order name: CBC with Diff; Complete Time: 19:01 hb 02/25 18:24 Order name: Hepatic Function; Complete Time: 19:33 hb 02/25 18:24 Order name: Lipase; Complete Time: 19:33 hb 02/25 18:24 Order name: CT Abd/Pelvis - IV Contrast Only; Complete Time: 19:33 hb 02/25 18:24 Order name: IV Saline Lock; Complete Time: 18:26 hb 02/25 18:24 Order name: Labs collected and sent; Complete Time: 18:26 hb Administered Medications: 18:46 Drug: morphine 4 mg Route: IVP; Site: right antecubital; tr6 20:06 Follow up: Response: No adverse reaction; Pain is decreased; RASS: Alert and Calm (0) 18:47 Drug: NS 0.9% 1000 ml Route: IV; Rate: 1000 ml; Site: right antecubital; tr6 20:06 Follow up: Response: No adverse reaction; IV Status: Completed infusion 18:47 Drug: Zofran (Ondansetron) 4 mg Route: IVP; Site: right antecubital; tr6 20:06 Follow up: Response: No adverse reaction; Nausea is decreased Disposition: 02/25/21 19:39 Discharged to Home. Impression: Nausea and vomiting, Diarrhea, unspecified, Generalized abdominal pain. - Condition is Stable. - Discharge Instructions: Viral Gastroenteritis, Adult, [id number]. - Prescriptions for Bentyl 20 mg Oral Tablet - take 1 tablet by ORAL route every 6 hours As needed; 20 tablet. Zofran 4 mg Oral Tablet - take 1 tablet by ORAL route every 6 hours As needed; 20 tablet. - Medication Reconciliation Form, Thank You Letter, Antibiotic Education, Prescription Opioid Use form. - Follow up: Emergency Department; When: As needed; Reason: Worsening of condition. Follow up: Private Physician; When: 2 - 3 days; Reason: Recheck today's complaints, Continuance of care, Re-evaluation by your physician. Addendum: 03/01/2021 07:00 Co-signature as Attending Physician, Rossy Preston MD. m a2 Signatures: Dispatcher [employer] EDMariam Deleon, BUSINESS MANAGEMENT MANAGER-C BUSINESS MANAGEMENT MANAGER-Ckb Mercy Sweeney, RN RN Kian Cooper RN RN Rossy Yang MD MD ma2 Natan Lake RN RN ae4 Marilyn Wylie RN RN tr6 Corrections: (The following items were deleted from the chart) 02/25 20:06 19:39 02/25/2021 19:39 Discharged to Home. Impression: Nausea and vomiting; Diarrhea, wh unspecified; Generalized abdominal pain. Condition is Stable. Forms are Medication Reconciliation Form, Thank You Letter, Antibiotic Education, Prescription Opioid Use. Follow up: Emergency Department; When: As needed; Reason: Worsening of condition. Follow up: Private Physician; When: 2 - 3 days; Reason: Recheck today's complaints, Continuance of care, Re-evaluation by your physician. kb
[2021-02-25 20:15] VITALS: TEMP 98.7
[2021-02-25 20:16] VITALS: BP 129/72; O2SAT 98
== END 2021-02-25 20:06 | disposition home or self-care (01) ==
LOC: ER 17:46
DX: R19.7 Diarrhea, unspecified (principal); R10.84 Generalized abdominal pain; I10 Essential (primary) hypertension; E11.9 Type 2 diabetes mellitus without complications; E03.9 Hypothyroidism, unspecified
CPT/HCPCS: 85025; 80048; 36415; 82565; 80076; 83690; 74177; Q9967; J7030; 96361; 96374; 96375; 99284

== ENCOUNTER 2022-07-26 00:21 | Emergency (ER) | payer BC ==
--- OUTSIDE RECORDS SUMMARY | 2022-07-26 00:29 | XMS REPORT | Continuity of Care Document ---
:1965 Author Organization [facility] t Address [address] [place] [address] Care Team Providers Name Role Phone Dori Hussein Primary Care Physician DIDI Attending Clinician Unavailable Dori Hussein Attending Clinician [phone] Tee Carlson MD Attending Clinician WM BRONSON Attending Clinician Unavailable Wm Bronson MD Attending Clinician Only, Olayinka Test Attending Clinician Unavailable Doctor Unassigned, [place] Attending Clinician Unavailable Pob, [facility] Attending Clinician Unavailable [email or web address] carlos Attending Clinician Unavailable ELIZABETH_Juan Carlos Admitting Clinician Unavailable WM BRNOSON Admitting Clinician Unavailable Wm Bronson MD Admitting Clinician didi Admitting Clinician Unavailable Payers Payer Name Policy Type Policy Number Effective Date Expiration Date S letydebbie [place] [id number] 2019 00:00:00 [place] [id number] 2019 00:00:00 [employer]ETNA [id number] 2002 00:00:00 Problems Condition Condition Condition Status Onset Resolution Last Treating Co mments Source Name Details Category Date Date Treatment Clinician Date Diarrhea Diarrhea Problem Active [facility] 14 [facility] ty [facility] Right Right Problem Active [place] lower Lower 9-14 Communi quadrant Quadrant 00:00: ty pain Pain 00 [facility] Pain in Pain in Problem Active [place] right hip Right Hip 9-14 Comm uni joint Joint 00:00: ty 00 [facility] Acute Acute Problem Active [place] urticaria Urticaria 8-24 Comm uni 00:00: ty 00 [facility] Elevated Elevated Problem Active [place] liver Liver 8-24 Communi enzymes Enzymes 00:00: ty level Level 00 [facility] Microscopi Microscopi Problem Active [facility] c c 3-10 Communi hematuria Hematuria 00:00: ty 00 [facility] Suspected Suspected Problem Active [facility] COVID-19 COVID-19 3-01 Commun i 00:00: ty 00 [facility] Intermitte Intermitte Problem Active S [facility] nt nt 1-13 Communi palpitatio Palpitatio 00:00: ty ns ns 00 [facility] Long-term Long-term Problem Active [facility] drug Drug 1-13 Communi therapy Therapy 00:00: ty 00 [facility] Low back Low Back Problem Active 2019- [place] pain Pain 1-24 Communi 00:00: ty 00 [facility] Chronic Chronic Problem Active 2019- [place] neck pain Neck Pain 0-29 Comm uni 00:00: ty 00 [facility] Hyperlipid Hyperlipid Problem Active 2019- S [facility] emia emia 9-02 Communi 00:00: ty 00 [facility] Screening Screening Problem Active 2019- [place] [facility] for for 3-18 Communi malignant Malignant 00:00: ty neoplasm Neoplasm 00 Hospit [facility] of breast of Breast l Clinics Type 2 Type 2 Problem Active 2019- [place] diabetes Diabetes 2-11 Commun i mellitus Mellitus 00:00: ty without without 00 Hospita complicati Complicati l on on Clinics Seasonal Seasonal Problem Active 2019-0 [place] allergic Allergic 2-11 Commun i rhinitis Rhinitis 00:00: ty 00 [facility] Right Right Problem Active 2018- [place] flank pain Flank Pain 4-16 Co mmuni 00:00: ty 00 [facility] Otitis Otitis Problem Active 2019-0 [place] media Media 2-14 Communi 00:00: ty 00 [facility]ospita l Clinics Essential Essential Problem Active [place] [facility] hypertensi Hypertensi 4-09 Co mmuni on on 00:00: ty 00 [facility]ospita l Clinics Lower Lower Problem Active [place] abdominal Abdominal 1-26 Comm uni pain Pain 00:00: ty 00 [facility] Clin[facility] Hypothyroi Hypothyroi Problem Active S [facility] dism dism Communi ty Hospita l Clinics Type 2 Type 2 Problem Active [place] diabetes Diabetes Commun i mellitus Mellitus ty Hospita l Clinics Obesity Obesity Problem Active [place] Communi ty Hospita l Clinics Obstructiv Obstructiv Problem Active S [facility] e sleep e Sleep Communi apnea Apnea ty syndrome [facility] Clin[facility] Allergic Allergic Problem Active [facility] rhinitis Rhinitis Commun i ty Hospita l Clinics Urticaria Urticaria Problem Active [place] [facility] Communi ty [facility]ita l Clinics Dizziness Dizziness Problem Active [facility] and and Communi giddiness Giddiness ty Hospita l Clinics Malaise Malaise Problem Active [place] and and Communi fatigue Fatigue ty Hospita l Clinics Dyspnea Dyspnea Problem Active [place] Communi ty Hospita l Clinics Dyspnea on Dyspnea on Problem Active S [facility] exertion Exertion Commun i ty Hospita l Clinics Allergies, Adverse Reactions, Alerts Allergy Allergy Status Severity Reaction(s) Onset Inactive Treating Comm ents Source Name Type Date Date Clinician STATINS- Allergy Active [place] [facility]G-COA to Communi REDUCTAS substanc ty E e Hospita INHIBITO l RS Clinics NO KNOWN Drug Active Univers ALLERGIE Class ity of S [facility] Family History Family Member Diagnosis Comments Start Date Stop Date Source Natural father [facility] Natural father Hypertension [facility] Natural mother Osteoporosis [facility] Natural mother Thyroid disease [facility] Natural sister Heart disease [facility] Social History Social Habit Start Date Stop Date Quantity Comments Source Exposure to Not sure University SARS-CoV-2 [facility] (event) [place] Alcohol intake 2022-05-22 2022-05-22 [facility] 00:00:00 00:00:00 non-drinker of alcohol (finding) Tobacco use and 2021-09-25 2021-09-25 Never used Universit y of exposure 00:00:00 00:00:00 [facility] Sex Ass[birth year] At [birth year] [facility] 00:00:00 00:00:00 Smoking Status Start Date Stop Date Source Unknown if ever smoked [facility] Never smoked tobacco [facility] ospital Medications Ordered Filled Start Stop Current Ordering Indication Dosage Frequency Signature Comments Components Source Medication Medication Date Date Medication? Clinician (SIG) Name Name dulaglutide 2021- No .75mg Q7D Inject 0.5 Methodi (Trulicity) 8-17 08-17 mL (0.75 st 0.75 mg/0.5 14:47: 00:00 mg total) Hospita mL 40 :00 as l subcutaneou directed s pen once a week. cetirizine Yes 10mg Q24H Take 1 Metho di (ZyrTEC) 10 8-17 tablet (10 st MG tablet 14:00: mg total) Hos leila 34 by mouth l daily. ergocalcife Yes [id number] Q7D Take 1 Me thodi rol 8-[address] (Vitamin 14:00: (50,000 Hospit a D2) 50,000 34 Units l unit total) by capsule mouth once a week. dulaglutide Yes 1.5mg Q7D Inject 0.5 Methodi (Trulicity) 8-17 mL (1.[address] 1.5 mg/0.5 00:00: total) Hospi ta mL 00 under the l subcutaneou skin once s pen a week. Xigduo XR Yes 1{tbl} QD Take 1 Meth ruchi 10-500 mg 8-[address] tablet, IR 00:00: mouth Hospit a & ER, 00 daily. l biphasic 24hr flash Yes [id number] 1{devic Q14D 1 Device M ethodi glucose 8-17 e} every 14 st sensor 00:00: (fourteen) Hospi ta (FreeStyle 00 days. l Sandra 14 Day Sensor) kit venlafaxine Yes 150mg QD Take 1 Met hodi XR 8-[address] (EFFEXOR-XR 00:00: (150 mg Hos leila ) 150 MG 24 00 total) by l hr capsule mouth daily. Xigduo XR 2021-0 2022- No 1{tbl} QD Take 1 Met hodi 10-500 mg 04-29 08-[address] tablet, IR 00:00: 00:00 mouth Hospi ta & ER, 00 :00 daily. l biphasic 24hr levothyroxi Yes 112ug QD Take 1 Met hodi ne 6-[address] (SYNTHROID) 00:00: (112 mcg Ho spita 112 mcg 00 total) by l tablet mouth daily. losartan Yes 100mg QD Take 1 Method i (COZAAR) 03-[address] 100 MG 00:00: (100 mg Hospita tablet 00 total) by l mouth daily. neomycin-po Yes PRN, Univer s lymyxin-dex 11-28 Starting ity of amethasone 16:27: on Fri [place] (MAXITROL) 00 11/28/21 at Med ical 3.5 1027, Branch mg/g-10,000 Until unit/g-0.1 Discontinu % ed, ophthalmic Routine, ointment Intra-op DUOVISC Yes PRN, Univers (DUOVISC 11-28 Starting ity of VISCO 16:27: on Fri [place] ELASTIC) 3 00 11/28/21 at Med ical %-4 %(0.5 1027, Branch mL) 1 % Until (0.55 mL) Discontinu intraocular ed, injection Routine, Intra-op dexamethaso Yes PRN, Univer s ne 11-28 Starting ity of (DECADRON 16:27: on Fri [place] PHOSPHATE) 11/28/21 at Med ical injection 1027, Branch Until Discontinu ed, Routine, Intra-op neomycin-po 2021- No PRN, Unive rs lymyxin-dex 11-28 Starting ity of amethasone 16:27: 19:06 on Fri [place] (MAXITROL) 00 :27 11/28/21 at Med ical 3.5 1027, Branch mg/g-10,000 Until Fri unit/g-0.1 11/28/21 at % 1306, ophthalmic Routine, ointment Intra-op DUOVISC 2021- No PRN, Univers (DUOVISC 11-28 Starting ity of VISCO 16:27: 19:06 on Fri ELASTIC) 3 00 :27 11/28/21 at [facility] ical %-4 %(0.5 1027, Branch mL) 1 % Until Fri (0.55 mL) 11/28/21 at intraocular 1306, injection Routine, Intra-op dexamethaso 2021- No PRN, Unive rs ne 11-28 Starting ity of (DECADRON 16:27: 19:06 on Fri PHOSPHATE) 00 :27 11/28/21 at [facility] ical injection 1027, Branch Until Fri11/28/21 at 1306, Routine, Intra-op ceFAZolin Yes PRN, Univers (ANCEF) 11-28 Starting ity of injection 16:26: on Fri 00 11/28/21 at [facility] 1026, Branch Until Discontinu ed, CONNER, Intra-op carbachoL Yes PRN, Univers (MIOSTAT) 11-28 Starting ity of 0.01 % 16:26: on Fri intraocular 00 11/28/21 at Id dical injection 1026, Branch Until Discontinu ed, Routine, Intra-op ceFAZolin 2021- No PRN, Univers (ANCEF) 11-28 Starting ity of injection 16:26: 19:06 on Fri 00 :27 11/28/21 at [facility] 1026, Branch Until Fri11/28/21 at 1306, CONNER, Intra-op carbachoL 2021- No PRN, Univers (MIOSTAT) 11-28 Starting ity o f 0.01 % 16:26: 19:06 on Fri intraocular 00 :27 11/28/21 at Id dical injection 1026, Branch Until Fri11/28/21 at 1306, Routine, Intra-op Hyaluronida Yes PRN, Univer s se, Human 11-28 Starting ity of Recomb. 16:17: on Fri (HYLENEX) 00 11/28/21 at [facility] nelida injection 1017, Branch Until Discontinu ed, Routine, Intra-op Hyaluronida 2021- No PRN, Unive rs se, Human 11-28 Starting ity o f Recomb. 16:17: 19:06 on Fri (HYLENEX) 00 :27 11/28/21 at Medi nelida injection 1017, Branch Until Fri11/28/21 at 1306, Routine, Intra-op water for Yes PRN, Univers irrigation 11-28 Starting ity o f irrigation 16:00: on Fri [place] solution 00 11/28/21 at Medic al 1000, Branch Until Discontinu ed, Routine, Intra-op sodium Yes PRN, Univers chloride 11-28 Starting ity of (NS) 16:00: on Fri injection 11/28/21 at Medi [place] 1000, Branch Until Discontinu ed, Routine, Intra-op water for 2021- No PRN, Univers irrigation 11-28 Starting ity of irrigation 16:00: 19:06 on Fri [place] solution 00 :11/28/21 at Medic al 1000, Branch Until Fri11/28/21 at 1306, Routine, Intra-op sodium 2021- No PRN, Univers chloride 11-28 Starting ity of (NS) 16:00: 19:06 on Fri injection 00 :11/28/21 at Medi nelida 1000, Branch Until Fri11/28/21 at 1306, Routine, Intra-op eye block Yes PRN, Univers syringe 11-28 Starting ity o f mL 15:59: on Fri11/28/21 at [facility] 0959, Branch Until Discontinu ed, Intra-op EPINEPHrine Yes PRN, Univer s 1:1,000 (1 11-28 Starting ity o f mg/mL) 15:59: on Fri (ADRENALIN) 11/28/21 at Id dical injection 0959, Branch Until Discontinu ed, Routine, Intra-op balanced Yes PRN, Univers salt irrig 11-28 Starting ity o f soln comb1 15:59: on Fri (BSS PLUS) 11/28/21 at [facility] ical ophthalmic 0959, Branch solution Until 500 mL bag Discontinu ed, Routine, Intra-op eye block 2021- No PRN, Univers syringe 11 11-28 Starting ity of mL 15:59: 19:06 on Wed [place] 00 :27 11/28/21 at Medical 0959, Branch Until Fri11/28/21 at 1306, Intra-op EPINEPHrine 2021- No PRN, Unive rs 1:1,000 (1 11-28 Starting ity of mg/mL) 15:59: 19:06 on Fri [place] (ADRENALIN) 00 :27 11/28/21 at Me dical injection 0959, Branch Until Fri11/28/21 at 1306, Routine, Intra-op balanced 2021- No PRN, Univers salt irrig 11-28 Starting ity of soln comb1 15:59: 19:06 on Fri [place] (BSS PLUS) 00 :27 11/28/21 at Med ical ophthalmic 0959, Branch solution Until Fri 500 mL bag 11/28/21 at 1306, Routine, Intra-op cyclopent 2021- No .5mL 0.5 mL, Univ ers 1%-tropic 11-28 Right Eye, ity of 1%-phenyl 14:30: 14:16 ONCE, 1 [place] 2.5%-ketor 00 :00 dose, On Medic al 0.5% Fri Branch (MYDRIATIC 11/28/21 at #5) 0830, ophthalmic Routine, solution DSU Pre-op syringe 0.5 mL lactated 2021- No 1000mL at 42 Unive rs ringers IV 11-2823 mL/hr, ity of infusion 14:30: 14:16 1,000 mL, Surjit as 1,000 mL 00 :00 IV Medical Infusion, Branch ONCE, 1 dose, On Fri11/28/21 at 0830, Routine, DSU Pre-op cyclopent 2021- No .5mL 0.5 mL, Univ ers 1%-tropic 11-28 Right Eye, ity of 1%-phenyl 14:30: 14:16 ONCE, 1 [place] 2.5%-ketor 00 :00 dose, On Medic al 0.5% Wed Branch (MYDRIATIC 11/28/21 at #5) 0830, ophthalmic Routine, solution DSU Pre-op syringe 0.5 mL lactated 2021- No 1000mL at 42 Unive rs ringers IV 2-23 02-23 mL/hr, ity of infusion 14:30: 14:16 1,000 mL, Surjit as 1,000 mL 00 :00 IV Medical Infusion, Branch ONCE, 1 dose, On Fri11/28/21 at 0830, Routine, DSU Pre-op dapaglifloz Yes Farxiga 10 Univers in 2-23 mg tablet ity of (FARXIGA) 11:06: [place] 10 mg 23 Medical tablet Branch dulaglutide Yes Trulicity U nivers (TRULICITY) 2-23 1.5 mg/0.5 it y of 1.5 mg/0.5 11:06: mL [place] mL PnIj 23 subcutaneo Medica l us pen Branch injector levothyroxi Yes levothyrox Univers ne 150 mcg 2-23 ine 150 ity of tablet 11:06: mcg tablet Medical Branch venlafaxine Yes venlafaxin Univers XR 150 mg 2-23 e ER 150 ity of 24 hr 11:06: mg [place] capsule 23 capsule,ex Medica l tended Branch release 24 hr TAKE 1 CAPSULE EVERY DAY levocetiriz Yes levocetiri Univers ine 5 mg 2-23 zine 5 mg ity of tablet 11:06: tablet Medical Branch dapaglifloz Yes Farxiga 10 Univers in 2-23 mg tablet ity of (FARXIGA) 11:06: [place] 10 mg 23 Medical tablet Branch dulaglutide Yes Trulicity U nivers (TRULICITY) 2-23 1.5 mg/0.5 it y of 1.5 mg/0.5 11:06: mL [place] mL PnIj 23 subcutaneo Medica l us pen Branch injector levothyroxi Yes levothyrox Univers ne 150 mcg 2-23 ine 150 ity of tablet 11:06: mcg tablet Medical Branch venlafaxine Yes venlafaxin Univers XR 150 mg 2-23 e ER 150 ity of 24 hr 11:06: mg [place] capsule 23 capsule,ex Medica l tended Branch release 24 hr TAKE 1 CAPSULE EVERY DAY levocetiriz Yes levocetiri Univers ine 5 mg 2-23 zine 5 mg ity of tablet 11:06: tablet [place] 23 [facility] Branch water for 2020-10 Yes PRN, Univers irrigation - Starting ity o f irrigation 14:19: on Fri [place] solution 09/26/21 Medical at 0819, Branch Until Discontinu ed, Routine, Intra-op sodium 2020-10 Yes PRN, Univers chloride 11-27 Starting ity of (NS) 14:19: on Fri [place] injection 09/26/21 Medica l at 0819, Branch Until Discontinu ed, Routine, Intra-op neomycin-po 2020-10 Yes PRN, Univer s lymyxin-dex 11-27 Starting ity of amethasone 14:19: on Fri [place] (MAXITROL) 00 09/26/21 Medic al 3.5 at 08, Branch mg/g-10,000 Until unit/g-0.1 Discontinu % ed, ophthalmic Routine, ointment Intra-op Hyaluronida 2020-10 Yes PRN, Univer s se, Human 11-27 Starting ity of Recomb. 14:19: on Fri [place] (HYLENEX) 00 09/26/21 Medica l injection at 08, Branch Until Discontinu ed, Routine, Intra-op water for 2020-10- No PRN, Univers irrigation 11-27 Starting ity of irrigation 14:19: 17:43 on Fri [place] solution 00 :11 09/26/21 Medical at 0819, Branch Until Fri09/26/21 at 1143, Routine, Intra-op sodium 2020-10- No PRN, Univers chloride 11-27 Starting ity of (NS) 14:19: 17:43 on Fri [place] injection 00 :11 09/26/21 Medica l at 0819, Branch Until Fri09/26/21 at 1143, Routine, Intra-op neomycin-po 2020-10- No PRN, Unive rs lymyxin-dex 11-27 Starting ity of amethasone 14:19: 17:43 on Fri [place] (MAXITROL) 00 :11 09/26/21 Medic al 3.5 at 0819, Branch mg/g-10,000 Until Wed unit/g-0.1 09/26/21 % at 1143, ophthalmic Routine, ointment Intra-op Hyaluronida 2020-10- No PRN, Unive rs se, Human 11-27 Starting ity o f Recomb. 14:19: 17:43 on Fri (HYLENEX) 00 :11 09/26/21 Medica l injection at 0819, Branch Until Fri09/26/21 at 1143, Routine, Intra-op eye block 2020-10 Yes PRN, Univers syringe 11 11-27 Starting ity o f mL 14:18: on Fri 00 09/26/21 Medical at 0818, Branch Until Discontinu ed, Intra-op eye block 2020-10- No PRN, Univers syringe 11-27 Starting ity of mL 14:18: 17:43 on Fri 00 :11 09/26/21 Medical at 0818, Branch Until Fri09/26/21 at 1143, Intra-op EPINEPHrine 2020-10 Yes PRN, Univer s 1:1,000 (11-27 Starting ity o f mg/mL) 14:17: on Fri (ADRENALIN) 00 09/26/21 Medi nelida injection at 0817, Branch Until Discontinu ed, Routine, Intra-op DUOVISC 2020-10 Yes PRN, Univers (DUOVISC 11-27 Starting ity of VISCO 14:17: on Fri ELASTIC) 3 00 09/26/21 Medic al %-4 %(0.5 at 0817, Branch mL) 1 % Until (0.55 mL) Discontinu intraocular ed, injection Routine, Intra-op dexamethaso 2020-10 Yes PRN, Univer s ne 11-27 Starting ity of (DECADRON 14:17: on Fri PHOSPHATE) 00 09/26/21 Medic al injection at 0817, Branch Until Discontinu ed, Routine, Intra-op ceFAZolin 2020-10 Yes PRN, Univers (ANCEF) 11-27 Starting ity of injection 14:17: on Fri 00 09/26/21 Medical at 0817, Branch Until Discontinu ed, CONNER, Intra-op EPINEPHrine 2020-10- No PRN, Unive rs 1:1,000 (11-27 Starting ity of mg/mL) 14:17: 17:43 on Wed [place] (ADRENALIN) 00 :11 09/26/21 Medi nelida injection at 0817, Branch Until Fri09/26/21 at 1143, Routine, Intra-op DUOVISC 2020-10- No PRN, Univers (DUOVISC 11-27 Starting ity of VISCO 14:17: 17:43 on Fri [place] ELASTIC) 3 00 :11 09/26/21 Medic al %-4 %(0.5 at 0817, Branch mL) 1 % Until Fri (0.55 mL) 09/26/21 intraocular at 1143, injection Routine, Intra-op dexamethaso 2020-10- No PRN, Unive rs ne 11-27 Starting ity of (DECADRON 14:17: 17:43 on Fri PHOSPHATE) 00 :11 09/26/21 Medic al injection at 0817, Branch Until Fri09/26/21 at 1143, Routine, Intra-op ceFAZolin 2020-10- No PRN, Univers (ANCEF) 11-27 Starting ity of injection 14:17: 17:43 on Fri [place] 00 :11 09/26/21 Medical at 0817, Branch Until Fri09/26/21 at 1143, CONNER, Intra-op carbachoL 2020-10 Yes PRN, Univers (MIOSTAT) 11-27 Starting ity of 0.01 % 14:16: on Fri intraocular 00 09/26/21 Medi nelida injection at 0816, Branch Until Discontinu ed, Routine, Intra-op balanced 2020-10 Yes PRN, Univers salt irrig 11-27 Starting ity o f soln comb1 14:16: on Fri (BSS PLUS) 00 09/26/21 Medic al ophthalmic at 0816, Branc h solution Until 500 mL bag Discontinu ed, Routine, Intra-op carbachoL 2020-10- No PRN, Univers (MIOSTAT) 11-27 Starting ity o f 0.01 % 14:16: 17:43 on Fri [place] intraocular 00 :11 09/26/21 Medi nelida injection at 0816, Branch Until Fri09/26/21 at 1143, Routine, Intra-op balanced 2020-10- No PRN, Univers salt irrig 11-27 Starting ity of soln comb1 14:16: 17:43 on Fri [place] (BSS PLUS) 00 :11 09/26/21 Medic al ophthalmic at 0816, Branc h solution Until Fri 500 mL bag 09/26/21 at 1143, Routine, Intra-op lactated 2020-10- No 1000mL at 42 Unive rs ringers IV 11-27 12-22 mL/hr, ity of infusion 13:45: 13:38 1,000 mL, Surjit as 1,000 mL 00 :00 IV Medical Infusion, Branch ONCE, 1 dose, On Fri09/26/21 at 0745, Routine, DSU Pre-op cyclopent 2020-10- No .5mL 0.5 mL, Univ ers 1%-tropic 11-27 Left Eye, ity of 1%-phenyl 13:45: 13:38 ONCE, 1 [place] 2.5%-ketor 00 :00 dose, On Medic al 0.5% Fri Branch (MYDRIATIC 09/26/21 #5) at 0745, ophthalmic Routine, solution DSU Pre-op syringe 0.5 mL lactated 2020-10- No 1000[facility] 11-27 12- mL/hr, ity of infusion 13:45: 13:38 1,000 mL, Surjit as 1,000 mL 00 :00 IV Medical Infusion, Branch ONCE, 1 dose, On Fri09/26/21 at 0745, Routine, DSU Pre-op cyclopent 2020-10- No .5mL 0.5 mL, Univ ers 1%-tropic 11-27 Left Eye, ity of 1%-phenyl 13:45: 13:38 ONCE, 1 [place] 2.5%-ketor 00 :00 dose, On Medic al 0.5% Fri Branch (MYDRIATIC 09/26/21 #5) at 0745, ophthalmic Routine, solution DSU Pre-op syringe 0.5 mL dapaglifloz 2020-10 Yes Farxiga 10 Univers in 2-22 mg tablet ity of (FARXIGA) 09:38: [place] 10 mg 08 Medical tablet Branch dulaglutide 2020-10 Yes Trulicity U nivers (TRULICITY) 2-22 1.5 mg/0.5 it y of 1.5 mg/0.5 09:38: mL [place] mL PnIj 08 subcutaneo Medica l us pen Branch injector levothyroxi 2020-10 Yes levothyrox Univers ne 150 mcg - ine 150 ity of tablet 09:38: mcg tablet Medical Branch venlafaxine 2020-10 Yes venlafaxin Univers XR 150 mg 2-22 e ER 150 ity of 24 hr 09:38: mg [place] capsule 08 capsule,ex Medica l tended Branch release 24 hr TAKE 1 CAPSULE EVERY DAY levocetiriz 2020-10 Yes levocetiri Univers ine 5 mg - zine 5 mg ity of tablet 09:38: tablet Medical Branch dapaglifloz 2020-10 Yes Farxiga 10 Univers in 2-22 mg tablet ity of (FARXIGA) 09:38: [place] 10 mg 08 Medical tablet Branch dulaglutide 2020-10 Yes Trulicity U nivers (TRULICITY) 2-22 1.5 mg/0.5 it y of 1.5 mg/0.5 09:38: mL [place] mL PnIj 08 subcutaneo Medica l us pen Branch injector levothyroxi 2020-10 Yes levothyrox Univers ne 150 mcg - ine 150 ity of tablet 09:38: mcg tablet [address] [place] [address] venlafaxine 2020-10 Yes venlafaxin Univers XR 150 mg -22 e ER 150 ity of 24 hr 09:38: mg [place] capsule 08 capsule,ex Medica l tended Branch release 24 hr TAKE 1 CAPSULE EVERY DAY levocetiriz 2020-10 Yes levocetiri Univers ine 5 mg -22 zine 5 mg ity of tablet 09:38: tablet Medical Branch dapaglifloz 2020-10 Yes Farxiga 10 Univers in 2-22 mg tablet ity of (FARXIGA) 09:38: [place] 10 mg 08 Medical tablet Branch dulaglutide 2020-10 Yes Trulicity U nivers (TRULICITY) 2-22 1.5 mg/0.5 it y of 1.5 mg/0.5 09:38: mL [place] mL PnIj 08 subcutaneo Medica l us pen Branch injector levothyroxi 2021-1 Yes levothyrox Univers ne 150 mcg 2-22 ine 150 ity of tablet 09:38: mcg tablet [place] [address] Medical Branch venlafaxine 2020-10 Yes venlafaxin Univers XR 150 mg 2-22 e ER 150 ity of 24 hr 09:38: mg [place] capsule 08 capsule,ex Medica l tended Branch release 24 hr TAKE 1 CAPSULE EVERY DAY levocetiriz 2020-10 Yes levocetiri Univers ine 5 mg 2-22 zine 5 mg ity of tablet 09:38: tablet [place] [address] Medical Branch dapaglifloz 2020-10 Yes Farxiga 10 Univers in 2-22 mg tablet ity of (FARXIGA) 09:38: [place] 10 mg 08 Medical tablet Branch dulaglutide 2020-10 Yes Trulicity U nivers (TRULICITY) 2-22 1.5 mg/0.5 it y of 1.5 mg/0.5 09:38: mL [facility] PnIj 08 subcutaneo Medica l pen Branch injector levothyroxi 2020-10 Yes levothyrox Univers ne 150 mcg 2-22 ine 150 ity of tablet 09:38: mcg tablet [place] [address] Medical Branch venlafaxine 2020-10 Yes venlafaxin Univers XR 150 mg 2-22 e ER 150 ity of 24 hr 09:38: mg [place] capsule 08 capsule,ex Medica l tended Branch release 24 hr TAKE 1 CAPSULE EVERY DAY levocetiriz 2020-10 Yes levocetiri Univers ine 5 mg 2-22 zine 5 mg ity of tablet 09:38: tablet [place] [address] Medical Branch XIGDUO XR 2020-10 Yes Univers 10-500 mg 1-23 ity of TBph 00:00: [place] Medical Branch XIGDUO XR 2020-10 Yes Univers 10-500 mg 1-23 ity of TBph 00:00: Medical Branch XIGDUO XR 2020-10 Yes Univers 10-500 mg 1-23 ity of TBph 00:00: [place] Medical Branch XIGDUO XR 2020-10 Yes Univers 10-500 mg 1-23 ity of TBph 00:00: [place] [facility] XIGDUO XR 2020-10 Yes Univers 10-500 mg 1-23 ity of TBph 00:00: Medical Branch XIGDUO XR 2020-10 Yes Univers 10-500 mg 1-23 ity of TBph 00:00: [facility] losartan 2020-10 Yes Univers 100 mg 1-15 ity of tablet 00:00: [place] [facility] losartan 2020-10 Yes Univers 100 mg 1-15 ity of tablet 00:00: [facility] losartan 2020-10 Yes Univers 100 mg 1-15 ity of tablet 00:00: [facility] losartan 2020-10 Yes Univers 100 mg 1-15 ity of tablet 00:00: [facility] losartan 2020-10 Yes Univers 100 mg 1-15 ity of tablet 00:00: [facility] losartan 2020-10 Yes Univers 100 mg 1-15 ity of tablet 00:00: [place] [facility] atorvastati 2020-10 Yes Univer s n 20 mg 0-05 ity of tablet 00:00: [place] [facility] atorvastati 2020-10 Yes Univer s n 20 mg 0-05 ity of tablet 00:00: [place] [facility] atorvastati 2020-10 Yes Univer s n 20 mg 0-05 ity of tablet 00:00: [place] [facility] [facility] atorvastati 2020-10 Yes Univer [facility] n 20 mg 0-05 ity of tablet 00:00: [place] [facility] atorvastati 2020-10 Yes Univer s n 20 mg 0-05 ity of tablet 00:00: [place] [facility] atorvastati 2020-10 Yes Univer s n 20 mg 0-05 ity of tablet 00:00: [address] aspirin 2007-0 Yes 81mg QD Take 1 [facility] (ECOTRIN) 9-25 tablet (81 st 81 MG 00:00: mg total) Hospita enteric 00 by mouth l coated daily. tablet venlafaxine venlafaxine No venlafaxin [place] ER 150 mg ER 150 mg e ER 150 [facility] capsule,ext capsule,ext mg t y ended ended capsule,ex Hospita release 24 release 24 tended l hr TAKE 1 hr TAKE 1 release 24 Clinics CAPSULE BY CAPSULE BY hr TAKE 1 MOUTH EVERY MOUTH EVERY CAPSULE BY DAY DAY MOUTH EVERY DAY Vitamin D Vitamin D No Vitamin D [place] 5000 iu 5000 iu 5000 iu Commun i daily daily daily ty Hospita l Clinics Xigduo XR Xigduo XR No Xigduo XR [place] 10 mg-500 10 mg-500 10 mg-500 Communi mg mg mg ty tablet,exte tablet,exte tablet,ext Hospita nded nded ended l release release release Clinic s Take 1 Take 1 Take 1 tablet tablet tablet every day every day every day by oral by oral by oral route for route for route for 30 days. 30 days. 30 days. Zyrtec 10 Zyrtec 10 No 1 Q1D Zyrtec 10 [place] mg tablet mg tablet mg tablet Communi Take 1 Take 1 Take 1 ty tablet tablet tablet Hospita every day every day every day l by oral by oral by oral Clinic s route. route. route. Aspir-81 Aspir-81 No Aspir-81 Swe amy one tablet one tablet one tablet Communi daily daily daily ty [facility] l Clinics atorvastati atorvastati No atorvastat [place] n 20 mg n 20 mg in 20 mg Commu ni tablet TAKE tablet TAKE tablet ty 1 TABLET BY 1 TABLET BY TAKE 1 Hospita MOUTH EVERY MOUTH EVERY TABLET BY l DAY DAY MOUTH Clinics EVERY DAY cyclobenzap cyclobenzap No cyclobenza [place] rine 10 mg rine 10 mg taylor 10 Communi tablet 1-2 tablet 1-2 mg tablet ty every 6-8 every 6-8 1-2 every Hospita hours as hours as 6-8 hours l needed needed as needed Clinic s FreeStyle FreeStyle No FreeStyle [place] Sandra 14 Sandra 14 Sandra 14 Com Day [place] [facility] Free[facility] FreeStyle [place] Sandra 14 Sandra 14 Sandra 14 Com Day Sensor Day Sensor Day Sensor ty kit USE kit USE kit USE Hospita DIRECTED DIRECTED DIRECTED l Clinics levothyroxi levothyroxi No levothyrox [place] ne 112 mcg ne 112 mcg ine 112 Communi tablet Take tablet Take mcg tablet ty 1 tablet 1 tablet Take 1 Hospi ta every day every day tablet l by oral by oral every day Clin ics route for route for by oral 30 days. 30 days. route for 30 days. losartan losartan No losartan [facility] 100 mg 100 mg 100 mg Communi tablet Take tablet Take tablet ty 1 tablet 1 tablet Take 1 Hospi ta every day every day tablet l by oral by oral every day Clin ics route for route for by oral 90 days. 90 days. route for 90 days. mometasone mometasone No mometasone [place] 0.1 % 0.1 % 0.1 % Communi topical topical topical ty cream APPLY cream APPLY cream Hospita A THIN A THIN APPLY A l LAYER TO LAYER TO THIN LAYER C linics THE THE TO THE AFFECTED AFFECTED AFFECTED AREA(S) BY AREA(S) BY AREA(S) BY TOPICAL TOPICAL TOPICAL ROUTE ONCE ROUTE ONCE ROUTE ONCE DAILY DAILY DAILY OneTouch OneTouch No 1strip( TID OneTouch [place] Verio test Verio test s) Verio test Communi strips Take strips Take strips ty 1 strip 3 1 strip 3 Take 1 [facility] times a day times a day strip 3 l by miscell. by miscell. times a Clinics route for route for day by 90 days. 90 days. miscell. route for 90 days. pantoprazol pantoprazol No pantoprazo [place] e 40 mg e 40 mg le 40 mg Commu ni tablet,eufemia tablet,eufemia tablet,del ty yed release yed release ayed H ospita Take 1 Take 1 release l tablet tablet Take 1 Clinics every day every day tablet by oral by oral every day route. route. by oral route. tramadol 50 tramadol 50 No tramadol [place] mg tablet mg tablet 50 mg Comm uni tablet ty Hospita l Clinics Trulicity Trulicity No Trulicity [place] 0.75 mg/0.5 0.75 mg/0.5 0.75 [facility] mL mL mg/0.5 mL ty subcutaneou subcutaneou subcutaneo Hospita s pen s pen us pen l injector injector injector Cli nics INJECT 1 INJECT 1 INJECT 1 PEN UNDER PEN UNDER PEN UNDER THE SKIN THE SKIN THE SKIN EVERY WEEK EVERY WEEK EVERY WEEK DIRECTED DIRECTED DIRECTED venlafaxine venlafaxine No venlafaxin [place] ER 150 mg ER 150 mg e ER 150 C [facility] capsule,ext capsule,ext mg t y ended ended capsule,ex Hospita release 24 release 24 tended l hr TAKE 1 hr TAKE 1 release 24 Clinics CAPSULE BY CAPSULE BY hr TAKE 1 MOUTH EVERY MOUTH EVERY CAPSULE BY DAY DAY MOUTH EVERY DAY Vitamin D Vitamin D No Vitamin D [place] 5000 iu 5000 iu 5000 iu Commun i [facility] Xigduo XR Xigduo XR No Xigduo XR [place] 10 mg-500 10 mg-500 10 mg-500 Communi mg mg mg ty tablet,exte tablet,exte tablet,ext Hospita nded nded ended l release release release Clinic s Take 1 Take 1 Take 1 tablet tablet tablet every day every day every day by oral by oral by oral route for route for route for 30 days. 30 days. 30 days. Zyrtec 10 Zyrtec 10 No 1 Q1D Zyrtec 10 [place] mg tablet mg tablet mg tablet Communi Take 1 Take 1 Take 1 ty tablet tablet tablet Hospita every day every day every day l by oral by oral by oral Clinic s route. route. route. Aspir-81 Aspir-81 No Aspir-81 Swe amy one tablet one tablet one tablet Communi daily daily daily ty [facility] Clinics atorvastati atorvastati No atorvastat [place] n 20 mg n 20 mg in 20 mg Commu ni tablet TAKE tablet TAKE tablet ty 1 TABLET BY 1 TABLET BY TAKE 1 Hospita MOUTH EVERY MOUTH EVERY TABLET BY l DAY DAY MOUTH Clinics EVERY DAY cyclobenzap cyclobenzap No cyclobenza [place] rine 10 mg rine 10 mg taylor 10 Communi tablet 1-2 tablet 1-2 mg tablet ty every 6-8 every 6-8 1-2 every Hospita hours as hours as 6-8 hours l needed needed as needed Clinic s FreeStyle FreeStyle No FreeStyle [place] Sandra 14 Sandra 14 Sandra 14 Com Day [place] [facility] [facility] FreeStyle No FreeStyle [place] Sandra 14 Sandra 14 Sandra 14 Com Day Sensor Day Sensor Day Sensor ty kit USE kit USE kit USE Hospita DIRECTED DIRECTED DIRECTED l Clinics hydroxychlo hydroxychlo No hydroxychl [place] roquine 200 roquine 200 oroquine Communi mg tablet mg tablet 200 mg ty Take 1 Take 1 tablet Hospita tablet tablet Take 1 l twice a day twice a day tablet Clinics by oral by oral twice a route. route. day by oral route. levothyroxi levothyroxi No levothyrox [place] ne 112 mcg ne 112 mcg ine 112 Communi tablet Take tablet Take mcg tablet ty 1 tablet 1 tablet Take 1 Hospi ta every day every day tablet l by oral by oral every day Clin ics route for route for by oral 30 days. 30 days. route for 30 days. losartan losartan No losartan [facility] 100 mg 100 mg 100 mg Communi tablet Take tablet Take tablet ty 1 tablet 1 tablet Take 1 Hospi ta every day every day tablet l by oral by oral every day Clin ics route for route for by oral 90 days. 90 days. route for 90 days. mometasone mometasone No mometasone [place] 0.1 % 0.1 % 0.1 % Communi topical topical topical ty cream APPLY cream APPLY cream Hospita A THIN A THIN APPLY A l LAYER TO LAYER TO THIN LAYER C linics THE THE TO THE AFFECTED AFFECTED AFFECTED AREA(S) BY AREA(S) BY AREA(S) BY TOPICAL TOPICAL TOPICAL ROUTE ONCE ROUTE ONCE ROUTE ONCE DAILY DAILY DAILY OneTouch OneTouch No 1strip( TID OneTouch [place] Verio test Verio test s) Verio test Communi strips Take strips Take strips ty 1 strip 3 1 strip 3 Take 1 [facility] times a day times a day strip 3 l by miscell. by miscell. times a Clinics route for route for day by 90 days. 90 days. miscell. route for 90 days. pantoprazol pantoprazol No pantoprazo [place] e 40 mg e 40 mg le 40 mg Commu ni tablet,eufemia tablet,eufemia tablet,del ty yed release yed release ayed H ospita Take 1 Take 1 release l tablet tablet Take 1 Clinics every day every day tablet by oral by oral every day route. route. by oral route. Trulicity Trulicity No Trulicity [place] 0.75 mg/0.5 0.75 mg/0.5 0.75 [facility] mL mL mg/0.5 mL ty subcutaneou subcutaneou subcutaneo Hospita s pen s pen us pen l injector injector injector Cli nics INJECT 1 INJECT 1 INJECT 1 PEN UNDER PEN UNDER PEN UNDER THE SKIN THE SKIN THE SKIN EVERY WEEK EVERY WEEK EVERY WEEK DIRECTED DIRECTED DIRECTED venlafaxine venlafaxine No venlafaxin [place] ER 150 mg ER 150 mg e ER 150 C [facility] capsule,ext capsule,ext mg t y ended ended capsule,ex Hospita release 24 release 24 tended l hr TAKE 1 hr TAKE 1 release 24 Clinics CAPSULE BY CAPSULE BY hr TAKE 1 MOUTH EVERY MOUTH EVERY CAPSULE BY DAY DAY MOUTH EVERY DAY Vitamin D Vitamin D No Vitamin D [place] 5000 iu 5000 iu 5000 iu Commun i daily daily daily ty [facility] Xigduo XR [place] XR No 1 Q1D Xigduo XR [place] 10 mg-500 10 mg-500 10 mg-500 Communi mg mg mg ty tablet,exte tablet,exte tablet,ext Hospita nded nded ended l release release release Clinic s Take 1 Take 1 Take 1 tablet tablet tablet every day every day every day by oral by oral by oral route for route for route for 30 days. 30 days. 30 days. Zyrtec 10 Zyrtec 10 No 1 Q1D Zyrtec 10 [place] mg tablet mg tablet mg tablet Communi Take 1 Take 1 Take 1 ty tablet tablet tablet Hospita every day every day every day l by oral by oral by oral Clinic s route. route. route. Aspir-81 Aspir-81 No Aspir-81 Swe amy one tablet one tablet one tablet Communi daily daily daily ty [facility] atorvastati atorvastati No atorvastat [place] n 20 mg n 20 mg in 20 mg Commu ni tablet TAKE tablet TAKE tablet ty 1 TABLET BY 1 TABLET BY TAKE 1 [facility] MOUTH EVERY MOUTH EVERY TABLET BY l DAY DAY MOUTH Clinics EVERY DAY azithromyci azithromyci No azithromyc [place] n 250 mg n 250 mg in 250 mg Co mmuni tablet tablet tablet [facility] clotrimazol clotrimazol No clotrimazo [place] e-betametha e-betametha le-betamet Communi sone 1 sone 1 hasone 1 ty %-0.05 % %-0.05 % %-0.05 % [facility] topical topical topical l cream APPLY cream APPLY cream Clinics TO THE TO THE APPLY TO AFFECTED AFFECTED THE AND AND AFFECTED SURROUNDING SURROUNDING AND AREAS OF AREAS OF SURROUNDIN SKIN BY SKIN BY G AREAS OF TOPICAL TOPICAL SKIN BY ROUTE 2 ROUTE 2 TOPICAL TIMES PER TIMES PER ROUTE 2 DAY IN THE DAY IN THE TIMES PER MORNING AND MORNING AND DAY IN THE EVENING EVENING MORNING AND EVENING cyclobenzap cyclobenzap No cyclobenza [place] rine 10 mg rine 10 mg taylor 10 Communi tablet 1-2 tablet 1-2 mg tablet ty every 6-8 every 6-8 1-2 every Hospita hours as hours as 6-8 hours l needed needed as needed Clinic s FreeStyle FreeStyle No FreeStyle [place] Sandra 14 Sandra 14 Sandra 14 Com jimbo Day [place] [facility] [place] [facility] l Clinics FreeStyle FreeStyle No FreeStyle [place] Sandra 14 Sandra 14 Sandra 14 Com jimbo Day Sensor Day Sensor Day Sensor ty kit USE kit USE kit USE Hospita DIRECTED DIRECTED DIRECTED l Clinics hydroxychlo hydroxychlo No hydroxychl [place] roquine 200 roquine 200 oroquine Communi mg tablet mg tablet 200 mg ty Take 1 Take 1 tablet Hospita tablet tablet Take 1 l twice a day twice a day tablet Clinics by oral by oral twice a route. route. day by oral route. levothyroxi levothyroxi No levothyrox [place] ne 112 mcg ne 112 mcg ine 112 Communi tablet Take tablet Take mcg tablet ty 1 tablet 1 tablet Take 1 Hospi ta every day every day tablet l by oral by oral every day Clin ics route for route for by oral 30 days. 30 days. route for 30 days. losartan losartan No losartan Swe [facility] 100 mg 100 mg 100 mg Communi tablet Take tablet Take tablet ty 1 tablet 1 tablet Take 1 Hospi ta every day every day tablet l by oral by oral every day Clin ics route for route for by oral 90 days. 90 days. route for 90 days. mometasone mometasone No mometasone [place] 0.1 % 0.1 % 0.1 % Communi topical topical topical ty cream APPLY cream APPLY cream Hospita A THIN A THIN APPLY A l LAYER TO LAYER TO THIN LAYER C linics THE THE TO THE AFFECTED AFFECTED AFFECTED AREA(S) BY AREA(S) BY AREA(S) BY TOPICAL TOPICAL TOPICAL ROUTE ONCE ROUTE ONCE ROUTE ONCE DAILY DAILY DAILY OneTouch OneTouch No 1strip( TID OneTouch [place] Verio test Verio test s) Verio test Communi strips Take strips Take strips ty 1 strip 3 1 strip 3 Take 1 [facility] times a day times a day strip 3 l by miscell. by miscell. times a Clinics route for route for day by 90 days. 90 days. miscell. route for 90 days. pantoprazol pantoprazol No pantoprazo [place] e 40 mg e 40 mg le 40 mg Commu ni tablet,eufemia tablet,eufemia tablet,del ty yed release yed release ayed H ospita Take 1 Take 1 release l tablet tablet Take 1 Clinics every day every day tablet by oral by oral every day route. route. by oral route. Trulicity Trulicity No Trulicity [place] 0.75 mg/0.5 0.75 mg/0.5 0.75 [facility] mL mL mg/0.5 mL ty subcutaneou subcutaneou subcutaneo Hospita s pen s pen us pen l injector injector injector Cli nics INJECT 1 INJECT 1 INJECT 1 PEN UNDER PEN UNDER PEN UNDER THE SKIN THE SKIN THE SKIN EVERY WEEK EVERY WEEK EVERY WEEK DIRECTED DIRECTED DIRECTED venlafaxine venlafaxine No venlafaxin [place] ER 150 mg ER 150 mg e ER 150 C [facility] capsule,ext capsule,ext mg t y ended ended capsule,ex Hospita release 24 release 24 tended l hr TAKE 1 hr TAKE 1 release 24 Clinics CAPSULE BY CAPSULE BY hr TAKE 1 MOUTH EVERY MOUTH EVERY CAPSULE BY DAY DAY MOUTH EVERY DAY Vitamin D Vitamin D No Vitamin D [place] 5000 iu 5000 iu 5000 iu Commun i daily daily daily ty [facility] Xigduo XR Xigduo XR No Xigduo XR [place] 10 mg-500 10 mg-500 10 mg-500 Communi mg mg mg ty tablet,exte tablet,exte tablet,ext Hospita nded nded ended l release release release Clinic s Take 1 Take 1 Take 1 tablet tablet tablet every day every day every day by oral by oral by oral route for route for route for 30 days. 30 days. 30 days. Zyrtec 10 Zyrtec 10 No 1 Q1D Zyrtec 10 [place] mg tablet mg tablet mg tablet Communi Take 1 Take 1 Take 1 ty tablet tablet tablet Hospita every day every day every day l by oral by oral by oral Clinic s route. route. route. Aspir-81 Aspir-81 No Aspir-81 Swe amy one tablet one tablet one tablet Communi daily daily daily ty [facility] atorvastati atorvastati No atorvastat [place] n 20 mg n 20 mg in 20 mg Commu ni tablet TAKE tablet TAKE tablet ty 1 TABLET BY 1 TABLET BY TAKE 1 Hospita MOUTH 1 MOUTH 1 TABLET BY l TIME EACH TIME EACH MOUTH 1 Cl inics DAY DAY TIME EACH DAY azithromyci azithromyci No azithromyc [place] n 250 mg n 250 mg in 250 mg Co [facility] tablet tablet tablet ty Hospita l Clinics clotrimazol clotrimazol No clotrimazo [place] e-betametha e-betametha le-betamet Communi sone 1 sone 1 hasone 1 ty %-0.05 % %-0.05 % %-0.05 % [facility] topical topical topical l cream APPLY cream APPLY cream Clinics TO THE TO THE APPLY TO AFFECTED AFFECTED THE AND AND AFFECTED SURROUNDING SURROUNDING AND AREAS OF AREAS OF SURROUNDIN SKIN BY SKIN BY G AREAS OF TOPICAL TOPICAL SKIN BY ROUTE 2 ROUTE 2 TOPICAL TIMES PER TIMES PER ROUTE 2 DAY IN THE DAY IN THE TIMES PER MORNING AND MORNING AND DAY IN THE EVENING EVENING MORNING AND EVENING cyclobenzap cyclobenzap No cyclobenza [place] rine 10 mg rine 10 mg taylor 10 Communi tablet 1-2 tablet 1-2 mg tablet ty every 6-8 every 6-8 1-2 every Hospita hours as hours as 6-8 hours l needed needed as needed Clinic s FreeStyle FreeStyle No FreeStyle [place] Sandra 14 Sandra 14 Sandra 14 Com jimbo Day [place] [facility] [place] [facility] l Clinics FreeStyle FreeStyle No FreeStyle [place] Sandra 14 Sandra 14 Sandra 14 Com jimbo Day Sensor Day Sensor Day Sensor ty kit USE kit USE kit USE Hospita DIRECTED DIRECTED DIRECTED l Clinics hydroxychlo hydroxychlo No hydroxychl [place] roquine 200 roquine 200 oroquine Communi mg tablet mg tablet 200 mg ty Take 1 Take 1 tablet Hospita tablet tablet Take 1 l twice a day twice a day tablet Clinics by oral by oral twice a route. route. day by oral route. levothyroxi levothyroxi No levothyrox [place] ne 112 mcg ne 112 mcg ine 112 Communi tablet TAKE tablet TAKE mcg tablet ty 1 TABLET BY 1 TABLET BY TAKE 1 Hospita MOUTH EVERY MOUTH EVERY TABLET BY l DAY DAY MOUTH Clinics EVERY DAY losartan losartan No losartan [facility] 100 mg 100 mg 100 mg Communi tablet Take tablet Take tablet ty 1 tablet 1 tablet Take 1 Hospi ta every day every day tablet l by oral by oral every day Clin ics route for route for by oral 90 days. 90 days. route for 90 days. mometasone mometasone No mometasone [place] 0.1 % 0.1 % 0.1 % Communi topical topical topical ty cream APPLY cream APPLY cream Hospita A THIN A THIN APPLY A l LAYER TO LAYER TO THIN LAYER C linics THE THE TO THE AFFECTED AFFECTED AFFECTED AREA(S) BY AREA(S) BY AREA(S) BY TOPICAL TOPICAL TOPICAL ROUTE ONCE ROUTE ONCE ROUTE ONCE DAILY DAILY DAILY ondansetron ondansetron No 1 Q7H ondansetro [place] 8 mg 8 mg n 8 mg Communi disintegrat disintegrat disintegra ty ing tablet ing tablet ting [facility] Place 1 Place 1 tablet l tablet tablet Place 1 Clinics every 6-8 every 6-8 tablet hours by hours by every 6-8 translingua translingua hours by l route as l route as translingu needed. needed. al route as needed. OneTouch OneTouch No 1strip( TID OneTouch [place] Verio test Verio test s) Verio test Communi strips Take strips Take strips ty 1 strip 3 1 strip 3 Take 1 [facility] times a day times a day strip 3 l by miscell. by miscell. times a Clinics route for route for day by 90 days. 90 days. miscell. route for 90 days. pantoprazol pantoprazol No pantoprazo [place] e 40 mg e 40 mg le 40 mg Commu ni tablet,eufemia tablet,eufemia tablet,del ty yed release yed release ayed H ospita Take 1 Take 1 release l tablet tablet Take 1 Clinics every day every day tablet by oral by oral every day route. route. by oral route. Symbicort Symbicort No Symbicort [place] 160 mcg-4.5 160 mcg-4.5 160 [facility] mcg/actuati mcg/actuati mcg-4.5 ty on HFA on HFA mcg/actuat Hospi ta aerosol aerosol ion HFA l inhaler inhaler aerosol Clinic s Inhale 2 Inhale 2 inhaler puffs twice puffs twice Inhale 2 a day by a day by puffs inhalation inhalation twice a route for route for day by 30 days. 30 days. inhalation route for 30 days. Trulicity Trulicity No Trulicity [place] 0.75 mg/0.5 0.75 mg/0.5 0.75 [facility] mL mL mg/0.5 mL ty subcutaneou subcutaneou subcutaneo Hospita s pen s pen us pen l injector injector injector Cli nics INJECT 1 INJECT 1 INJECT 1 PEN UNDER PEN UNDER PEN UNDER THE SKIN THE SKIN THE SKIN EVERY WEEK EVERY WEEK EVERY WEEK DIRECTED DIRECTED DIRECTED venlafaxine venlafaxine No venlafaxin [place] ER 150 mg ER 150 mg e ER 150 C [facility] capsule,ext capsule,ext mg t y ended ended capsule,ex Hospita release 24 release 24 tended l hr TAKE 1 hr TAKE 1 release 24 Clinics CAPSULE BY CAPSULE BY hr TAKE 1 MOUTH 1 MOUTH 1 CAPSULE BY TIME EACH TIME EACH MOUTH 1 DAY DAY TIME EACH DAY Vitamin D Vitamin D No Vitamin D [place] 5000 iu 5000 iu 5000 iu Commun i daily daily daily ty Hospita l Clinics Xigduo XR Xigduo XR No Xigduo XR [place] 10 mg-500 10 mg-500 10 mg-500 Communi mg mg mg ty tablet,exte tablet,exte tablet,ext Hospita nded nded ended l release release release Clinic s Take 1 Take 1 Take 1 tablet tablet tablet every day every day every day by oral by oral by oral route for route for route for 30 days. 30 days. 30 days. Zyrtec 10 Zyrtec 10 No 1 Q1D Zyrtec 10 [place] mg tablet mg tablet mg tablet Communi Take 1 Take 1 Take 1 ty tablet tablet tablet Hospita every day every day every day l by oral by oral by oral Clinic s route. route. route. amoxicillin amoxicillin No amoxicilli [place] [phone] n 875 Communi mg-potassiu mg-potassiu mg-potassi ty m m [facility] clavulanate clavulanate clavulanat l 125 mg 125 mg e 125 mg Clinics tablet Take tablet Take tablet 1 tablet 1 tablet Take 1 twice a day twice a day tablet by oral by oral twice a route as route as day by directed directed oral route for 10 for 10 as days. days. directed for 10 days. Aspir-81 Aspir-81 No Aspir-81 Swe amy one tablet one tablet one tablet Communi daily daily daily ty [facility] atorvastati atorvastati No atorvastat [place] n 20 mg n 20 mg in 20 mg Commu ni tablet TAKE tablet TAKE tablet ty 1 TABLET BY 1 TABLET BY TAKE 1 Hospita MOUTH 1 MOUTH 1 TABLET BY l TIME EACH TIME EACH MOUTH 1 Cl inics DAY DAY TIME EACH DAY clotrimazol clotrimazol No clotrimazo [place] e-betametha e-betametha le-betamet Communi sone 1 sone 1 hasone 1 ty %-0.05 % %-0.05 % %-0.05 % [facility] topical topical topical l cream APPLY cream APPLY cream Clinics TO THE TO THE APPLY TO AFFECTED AFFECTED THE AND AND AFFECTED SURROUNDING SURROUNDING AND AREAS OF AREAS OF SURROUNDIN SKIN BY SKIN BY G AREAS OF TOPICAL TOPICAL SKIN BY ROUTE 2 ROUTE 2 TOPICAL TIMES PER TIMES PER ROUTE 2 DAY IN THE DAY IN THE TIMES PER MORNING AND MORNING AND DAY IN THE EVENING EVENING MORNING AND EVENING cyclobenzap cyclobenzap No cyclobenza [place] rine 10 mg rine 10 mg taylor 10 Communi tablet 1-2 tablet 1-2 mg tablet ty every 6-8 every 6-8 1-2 every Hospita hours as hours as 6-8 hours l needed needed as needed Clinic s dicyclomine dicyclomine No dicyclomin [place] 20 mg 20 mg e 20 mg Communi tablet tablet tablet ty [facility] FreeStyle FreeStyle No FreeStyle [place] Sandra 14 Sandra 14 Sandra 14 Com jimbo Day [place] [facility] FreeStyle FreeStyle No FreeStyle [place] Sandra 14 Sandra 14 Sandra 14 Com jimbo Day Sensor Day Sensor Day Sensor ty kit USE kit USE kit USE Hospita DIRECTED DIRECTED DIRECTED l Clinics hydroxychlo hydroxychlo No hydroxychl [place] roquine 200 roquine 200 oroquine Communi mg tablet mg tablet 200 mg ty Take 1 Take 1 tablet Hospita tablet tablet Take 1 l twice a day twice a day tablet Clinics by oral by oral twice a route. route. day by oral route. ivermectin ivermectin No 2 Q12H ivermectin [place] 3 mg tablet 3 mg tablet 3 mg C [facility] Take 2 Take 2 tablet ty tablets tablets Take 2 Hospita every 12 every 12 tablets l hours by hours by every 12 Cli nics oral route. oral route. hours by oral route. levothyroxi levothyroxi No levothyrox [place] ne 112 mcg ne 112 mcg ine 112 Communi tablet TAKE tablet TAKE mcg tablet ty 1 TABLET BY 1 TABLET BY TAKE 1 Hospita MOUTH EVERY MOUTH EVERY TABLET BY l DAY DAY MOUTH Clinics EVERY DAY losartan losartan No losartan Swe amy 100 mg 100 mg 100 mg Communi tablet Take tablet Take tablet ty 1 tablet 1 tablet Take 1 Hospi ta every day every day tablet l by oral by oral every day Clin ics route for route for by oral 90 days. 90 days. route for 90 days. Medrol Medrol No Medrol [place] (Jayy) 4 mg (Jayy) 4 mg (Jayy) 4 mg Communi tablets in tablets in tablets in ty a dose pack a dose pack a dose Hospita as directed as directed pack as l directed Clinics mometasone mometasone No mometasone [place] 0.1 % 0.1 % 0.1 % Communi topical topical topical ty cream APPLY cream APPLY cream Hospita A THIN A THIN APPLY A l LAYER TO LAYER TO THIN LAYER C linics THE THE TO THE AFFECTED AFFECTED AFFECTED AREA(S) BY AREA(S) BY AREA(S) BY TOPICAL TOPICAL TOPICAL ROUTE ONCE ROUTE ONCE ROUTE ONCE DAILY DAILY DAILY ondansetron ondansetron No 1 Q7H ondansetro [place] 8 mg 8 mg n 8 mg Communi disintegrat disintegrat disintegra ty ing tablet ing tablet ting [facility] Place 1 Place 1 tablet l tablet tablet Place 1 Clinics every 6-8 every 6-8 tablet hours by hours by every 6-8 translingua translingua hours by l route as l route as translingu needed. needed. al route as needed. ondansetron ondansetron No ondansetro [place] HCl 4 mg HCl 4 mg n HCl 4 mg [facility] tablet tablet tablet ty [facility]osp[facility] l Clinics OneTouch OneTouch No 1strip( BID OneTouch [place] Ultra Blue Ultra Blue s) Ultra Blue Communi Test Strip Test Strip Test Strip ty Take 1 Take 1 Take 1 Hospita strip twice strip twice strip l a day by a day by twice a Clin ics miscell. miscell. day by route for route for miscell. 90 days. 90 days. route for 90 days. OneTouch OneTouch No 1strip( TID OneTouch [place] Verio test Verio test s) Verio test Communi strips Take strips Take strips ty 1 strip 3 1 strip 3 Take 1 [facility] times a day times a day strip 3 l by miscell. by miscell. times a Clinics route for route for day by 90 days. 90 days. miscell. route for 90 days. pantoprazol pantoprazol No pantoprazo [place] e 40 mg e 40 mg le 40 mg Commu ni tablet,eufemia tablet,eufemia tablet,del ty yed release yed release ayed [facility] Take 1 Take 1 release l tablet tablet Take 1 Clinics every day every day tablet by oral by oral every day route. route. by oral route. Symbicort Symbicort No Symbicort [place] 160 mcg-4.5 160 mcg-4.5 160 [facility] mcg/actuati mcg/actuati mcg-4.5 ty on HFA on HFA mcg/actuat Hospi ta aerosol aerosol ion HFA l inhaler inhaler aerosol Clinic s Inhale 2 Inhale 2 inhaler puffs twice puffs twice Inhale 2 a day by a day by puffs inhalation inhalation twice a route for route for day by 30 days. 30 days. inhalation route for 30 days. Trulicity Trulicity No Trulicity [place] 0.75 mg/0.5 0.75 mg/0.5 0.75 [facility] mL mL mg/0.5 mL ty subcutaneou subcutaneou subcutaneo Hospita s pen s pen us pen l injector injector injector Cli nics INJECT 1 INJECT 1 INJECT 1 PEN UNDER PEN UNDER PEN UNDER THE SKIN THE SKIN THE SKIN EVERY WEEK EVERY WEEK EVERY WEEK DIRECTED DIRECTED DIRECTED venlafaxine venlafaxine No venlafaxin [place] ER 150 mg ER 150 mg e ER 150 [facility] capsule,ext capsule,ext mg t y ended ended capsule,ex Hospita release 24 release 24 tended l hr TAKE 1 hr TAKE 1 release 24 Clinics CAPSULE BY CAPSULE BY hr TAKE 1 MOUTH 1 MOUTH 1 CAPSULE BY TIME EACH TIME EACH MOUTH 1 DAY DAY TIME EACH DAY Vitamin D Vitamin D No Vitamin D [place] 5000 iu 5000 iu 5000 iu Commun i daily daily daily ty [facility] Xigduo XR Xigduo XR No Xigduo XR [place] 10 mg-500 10 mg-500 10 mg-500 Communi mg mg mg ty tablet,exte tablet,exte tablet,ext Hospita nded nded ended l release release release Clinic s Take 1 Take 1 Take 1 tablet tablet tablet every day every day every day by oral by oral by oral route for route for route for 30 days. 30 days. 30 days. Zithromax Zithromax No Zithromax [place] Z-Jayy 250 Z-Jayy 250 Z-Jayy 250 Communi mg tablet mg tablet mg tablet ty TAKE 2 TAKE 2 TAKE 2 Hospita TABLETS TABLETS TABLETS l (500 MG) BY (500 MG) BY (500 MG) Clinics ORAL ROUTE ORAL ROUTE BY ORAL ONCE DAILY ONCE DAILY ROUTE ONCE FOR 1 DAY FOR 1 DAY DAILY FOR THEN 1 THEN 1 1 DAY THEN TABLET (250 TABLET (250 1 TABLET MG) BY ORAL MG) BY ORAL (250 MG) ROUTE ONCE ROUTE ONCE BY ORAL DAILY FOR 4 DAILY FOR 4 ROUTE ONCE DAYS DAYS DAILY FOR 4 DAYS Zyrtec 10 Zyrtec 10 No 1 Q1D Zyrtec 10 [place] mg tablet mg tablet mg tablet Communi Take 1 Take 1 Take 1 ty tablet tablet tablet Hospita every day every day every day l by oral by oral by oral Clinic s route. route. route. Aspir-81 Aspir-81 No Aspir-81 Swe amy one tablet one tablet one tablet Communi daily daily daily ty [facility] atorvastati atorvastati No atorvastat [place] n 20 mg n 20 mg in 20 mg Commu ni tablet TAKE tablet TAKE tablet ty 1 TABLET BY 1 TABLET BY TAKE 1 Hospita MOUTH 1 MOUTH 1 TABLET BY l TIME EACH TIME EACH MOUTH 1 Cl inics DAY DAY TIME EACH DAY clotrimazol clotrimazol No clotrimazo [place] e-betametha e-betametha le-betamet Communi sone 1 sone 1 hasone 1 ty %-0.05 % %-0.05 % %-0.05 % [facility] topical topical topical l cream APPLY cream APPLY cream Clinics TOPICALLY TOPICALLY APPLY TO THE TO THE TOPICALLY AFFECTED AFFECTED TO THE AND AND AFFECTED SURROUNDING SURROUNDING AND AREAS TWICE AREAS TWICE SURROUNDIN DAILY IN DAILY IN G AREAS THE MORNING THE MORNING TWICE AND IN THE AND IN THE DAILY IN EVENING EVENING THE MORNING AND IN THE EVENING cyclobenzap cyclobenzap No cyclobenza [place] rine 10 mg rine 10 mg taylor 10 Communi tablet 1-2 tablet 1-2 mg tablet ty every 6-8 every 6-8 1-2 every Hospita hours as hours as 6-8 hours l needed needed as needed Clinic s dicyclomine dicyclomine No dicyclomin [place] 20 mg 20 mg e 20 mg [facility] tablet tablet tablet [facility] FreeStyle FreeStyle No FreeStyle [place] Sandra 14 Sandra 14 Sandra 14 Com jimbo Day [place] [facility] Free[facility] FreeStyle No FreeStyle [place] Sandra 14 Sandra 14 Sandra 14 Com jimbo Day Sensor Day Sensor Day Sensor ty kit USE kit USE kit USE Hospita DIRECTED DIRECTED DIRECTED l Clinics levothyroxi levothyroxi No levothyrox [place] ne 112 mcg ne 112 mcg ine 112 Communi tablet TAKE tablet TAKE mcg tablet ty 1 TABLET BY 1 TABLET BY TAKE 1 Hospita MOUTH EVERY MOUTH EVERY TABLET BY l DAY DAY MOUTH Clinics EVERY DAY losartan losartan No losartan [facility] 100 mg 100 mg 100 mg Communi tablet Take tablet Take tablet ty 1 tablet 1 tablet Take 1 Hospi ta every day every day tablet l by oral by oral every day Clin ics route for route for by oral 90 days. 90 days. route for 90 days. mometasone mometasone No mometasone [place] 0.1 % 0.1 % 0.1 % Communi topical topical topical ty cream APPLY cream APPLY cream Hospita A THIN A THIN APPLY A l LAYER TO LAYER TO THIN LAYER C linics THE THE TO THE AFFECTED AFFECTED AFFECTED AREA(S) BY AREA(S) BY AREA(S) BY TOPICAL TOPICAL TOPICAL ROUTE ONCE ROUTE ONCE ROUTE ONCE DAILY DAILY DAILY ondansetron ondansetron No 1 Q7H ondansetro [place] 8 mg 8 mg n 8 mg Communi disintegrat disintegrat disintegra ty ing tablet ing tablet ting [facility] Place 1 Place 1 tablet l tablet tablet Place 1 Clinics every 6-8 every 6-8 tablet hours by hours by every 6-8 translingua translingua hours by l route as l route as translingu needed. needed. al route as needed. ondansetron ondansetron No ondansetro [place] HCl 4 mg HCl 4 mg n HCl 4 mg [facility] tablet tablet tablet ty [facility]ospita l Clinics OneTouch OneTouch No 1strip( BID OneTouch [place] Ultra Blue Ultra Blue s) Ultra Blue Communi Test Strip Test Strip Test Strip ty Take 1 Take 1 Take 1 Hospita strip twice strip twice strip l a day by a day by twice a Clin ics miscell. miscell. day by route for route for miscell. 90 days. 90 days. route for 90 days. OneTouch OneTouch No 1strip( TID OneTouch [place] Verio test Verio test s) Verio test Communi strips Take strips Take strips ty 1 strip 3 1 strip 3 Take 1 [facility] times a day times a day strip 3 l by miscell. by miscell. times a Clinics route for route for day by 90 days. 90 days. miscell. route for 90 days. pantoprazol pantoprazol No pantoprazo [place] e 40 mg e 40 mg le 40 mg Commu ni tablet,eufemia tablet,eufemia tablet,del ty yed release yed release ayed H [facility]spita Take 1 Take 1 release l tablet tablet Take 1 Clinics every day every day tablet by oral by oral every day route. route. by oral route. Symbicort Symbicort No Symbicort [place] 160 mcg-4.5 160 mcg-4.5 160 [facility] mcg/actuati mcg/actuati mcg-4.5 ty on HFA on HFA mcg/actuat Hospi ta aerosol aerosol ion HFA l inhaler inhaler aerosol Clinic s Inhale 2 Inhale 2 inhaler puffs twice puffs twice Inhale 2 a day by a day by puffs inhalation inhalation twice a route for route for day by 30 days. 30 days. inhalation route for 30 days. Trulicity Trulicity No Trulicity [place] 0.75 mg/0.5 0.75 mg/0.5 0.75 [facility] mL mL mg/0.5 mL ty subcutaneou subcutaneou subcutaneo Hospita s pen s pen us pen l injector injector injector Cli nics INJECT 1 INJECT 1 INJECT 1 PEN UNDER PEN UNDER PEN UNDER THE SKIN THE SKIN THE SKIN EVERY WEEK EVERY WEEK EVERY WEEK DIRECTED DIRECTED DIRECTED venlafaxine venlafaxine No venlafaxin [place] ER 150 mg ER 150 mg e ER 150 [facility] capsule,ext capsule,ext mg t y ended ended capsule,ex Hospita release 24 release 24 tended l hr TAKE 1 hr TAKE 1 release 24 Clinics CAPSULE BY CAPSULE BY hr TAKE 1 MOUTH 1 MOUTH 1 CAPSULE BY TIME EACH TIME EACH MOUTH 1 DAY DAY TIME EACH DAY Vitamin D Vitamin D No Vitamin D [place] 5000 iu 5000 iu 5000 iu Commun i daily daily daily ty [facility] Xigduo XR Xigduo XR No Xigduo XR [place] 10 mg-500 10 mg-500 10 mg-500 Communi mg mg mg ty tablet,exte tablet,exte tablet,ext Hospita nded nded ended l release release release Clinic s Take 1 Take 1 Take 1 tablet tablet tablet every day every day every day by oral by oral by oral route for route for route for 30 days. 30 days. 30 days. Zyrtec 10 Zyrtec 10 No 1 Q1D Zyrtec 10 [place] mg tablet mg tablet mg tablet Communi Take 1 Take 1 Take 1 ty tablet tablet tablet Hospita every day every day every day l by oral by oral by oral Clinic s route. route. route. Aspir-81 Aspir-81 No Aspir-81 Swe amy one tablet one tablet one tablet Communi daily daily daily ty [facility] atorvastati atorvastati No atorvastat [place] n 20 mg n 20 mg in 20 mg Commu ni tablet TAKE tablet TAKE tablet ty 1 TABLET BY 1 TABLET BY TAKE 1 Hospita MOUTH 1 MOUTH 1 TABLET BY l TIME EACH TIME EACH MOUTH 1 Cl inics DAY DAY TIME EACH DAY clotrimazol clotrimazol No clotrimazo [place] e-betametha e-betametha le-betamet Communi sone 1 sone 1 hasone 1 ty %-0.05 % %-0.05 % %-0.05 % [facility] topical topical topical l cream APPLY cream APPLY cream Clinics TOPICALLY TOPICALLY APPLY TO THE TO THE TOPICALLY AFFECTED AFFECTED TO THE AND AND AFFECTED SURROUNDING SURROUNDING AND AREAS TWICE AREAS TWICE SURROUNDIN DAILY IN DAILY IN G AREAS THE MORNING THE MORNING TWICE AND IN THE AND IN THE DAILY IN EVENING EVENING THE MORNING AND IN THE EVENING cyclobenzap cyclobenzap No cyclobenza [place] rine 10 mg rine 10 mg taylor 10 Communi tablet 1-2 tablet 1-2 mg tablet ty every 6-8 every 6-8 1-2 every Hospita hours as hours as 6-8 hours l needed needed as needed Clinic s dicyclomine dicyclomine No dicyclomin [place] 20 mg 20 mg e 20 mg Communi tablet tablet tablet ty Hospita l Clinics FreeStyle FreeStyle No FreeStyle [place] Sandra 14 Sandra 14 Sandra 14 Com jimbo Day [place] [facility] FreeStyle FreeStyle No FreeStyle [place] Sandra 14 Sandra 14 Sandra 14 Com jimbo Day Sensor Day Sensor Day Sensor ty kit USE kit USE kit USE Hospita DIRECTED DIRECTED DIRECTED l Clinics levothyroxi levothyroxi No levothyrox [place] ne 112 mcg ne 112 mcg ine 112 Communi tablet TAKE tablet TAKE mcg tablet ty 1 TABLET BY 1 TABLET BY TAKE 1 Hospita MOUTH EVERY MOUTH EVERY TABLET BY l DAY DAY MOUTH Clinics EVERY DAY losartan losartan No losartan [facility] 100 mg 100 mg 100 mg Communi tablet Take tablet Take tablet ty 1 tablet 1 tablet Take 1 Hospi ta every day every day tablet l by oral by oral every day Clin ics route for route for by oral 90 days. 90 days. route for 90 days. mometasone mometasone No mometasone [place] 0.1 % 0.1 % 0.1 % Communi topical topical topical ty cream APPLY cream APPLY cream Hospita A THIN A THIN APPLY A l LAYER TO LAYER TO THIN LAYER C linics THE THE TO THE AFFECTED AFFECTED AFFECTED AREA(S) BY AREA(S) BY AREA(S) BY TOPICAL TOPICAL TOPICAL ROUTE ONCE ROUTE ONCE ROUTE ONCE DAILY DAILY DAILY ondansetron ondansetron No 1 Q7H ondansetro [place] 8 mg 8 mg n 8 mg Communi disintegrat disintegrat disintegra ty ing tablet ing tablet ting [facility] Place 1 Place 1 tablet l tablet tablet Place 1 Clinics every 6-8 every 6-8 tablet hours by hours by every 6-8 translingua translingua hours by l route as l route as translingu needed. needed. al route as needed. ondansetron ondansetron No ondansetro [place] HCl 4 mg HCl 4 mg n HCl 4 mg [facility] tablet tablet tablet ty Hospita l Clinics OneTouch OneTouch No 1strip( BID OneTouch [place] Ultra Blue Ultra Blue s) Ultra Blue Communi Test Strip Test Strip Test Strip ty Take 1 Take 1 Take 1 Hospita strip twice strip twice strip l a day by a day by twice a Clin ics miscell. miscell. day by route for route for miscell. 90 days. 90 days. route for 90 days. OneTouch OneTouch No 1strip( TID OneTouch [place] Verio test Verio test s) Verio test Communi strips Take strips Take strips ty 1 strip 3 1 strip 3 Take 1 [facility] times a day times a day strip 3 l by miscell. by miscell. times a Clinics route for route for day by 90 days. 90 days. miscell. route for 90 days. pantoprazol pantoprazol No pantoprazo [place] e 40 mg e 40 mg le 40 mg Commu ni tablet,eufemia tablet,eufemia tablet,del ty yed release yed release ayed H [facility]spita Take 1 Take 1 release l tablet tablet Take 1 Clinics every day every day tablet by oral by oral every day route. route. by oral route. Symbicort Symbicort No Symbicort [place] 160 mcg-4.5 160 mcg-4.5 160 [facility] mcg/actuati mcg/actuati mcg-4.5 ty on HFA on HFA mcg/actuat Hospi ta aerosol aerosol ion HFA l inhaler inhaler aerosol Clinic s Inhale 2 Inhale 2 inhaler puffs twice puffs twice Inhale 2 a day by a day by puffs inhalation inhalation twice a route for route for day by 30 days. 30 days. inhalation route for 30 days. Trulicity Trulicity No Trulicity [place] 0.75 mg/0.5 0.75 mg/0.5 0.75 [facility] mL mL mg/0.5 mL ty subcutaneou subcutaneou subcutaneo Hospita s pen s pen us pen l injector injector injector Cli nics INJECT 1 INJECT 1 INJECT 1 PEN UNDER PEN UNDER PEN UNDER THE SKIN THE SKIN THE SKIN EVERY WEEK EVERY WEEK EVERY WEEK DIRECTED DIRECTED DIRECTED venlafaxine venlafaxine No venlafaxin [place] ER 150 mg ER 150 mg e ER 150 [facility] capsule,ext capsule,ext mg t y ended ended capsule,ex Hospita release 24 release 24 tended l hr TAKE 1 hr TAKE 1 release 24 Clinics CAPSULE BY CAPSULE BY hr TAKE 1 MOUTH 1 MOUTH 1 CAPSULE BY TIME EACH TIME EACH MOUTH 1 DAY DAY TIME EACH DAY Vitamin D Vitamin D No Vitamin D [place] 5000 iu 5000 iu 5000 iu Commun i daily daily daily ty [facility] Xigduo XR Xigduo XR No Xigduo XR [place] 10 mg-500 10 mg-500 10 mg-500 Communi mg mg mg ty tablet,exte tablet,exte tablet,ext Hospita nded nded ended l release release release Clinic s TAKE 1 TAKE 1 TAKE 1 TABLET BY TABLET BY TABLET BY MOUTH 1 MOUTH 1 MOUTH 1 TIME EACH TIME EACH TIME EACH DAY DAY DAY Zyrtec 10 Zyrtec 10 No 1 Q1D Zyrtec 10 [place] mg tablet mg tablet mg tablet Communi Take 1 Take 1 Take 1 ty tablet tablet tablet Hospita every day every day every day l by oral by oral by oral Clinic s route. route. route. Aspir-81 Aspir-81 No Aspir-81 Swe amy one tablet one tablet one tablet Communi daily daily daily ty [facility] atorvastati atorvastati No atorvastat [place] n 20 mg n 20 mg in 20 mg Commu ni tablet TAKE tablet TAKE tablet ty 1 TABLET BY 1 TABLET BY TAKE 1 Hospita MOUTH 1 MOUTH 1 TABLET BY l TIME EACH TIME EACH MOUTH 1 Cl inics DAY DAY TIME EACH DAY clotrimazol clotrimazol No clotrimazo [place] e-betametha e-betametha le-betamet Communi sone 1 sone 1 hasone 1 ty %-0.05 % %-0.05 % %-0.05 % [facility] topical topical topical l cream APPLY cream APPLY cream Clinics TOPICALLY TOPICALLY APPLY TO THE TO THE TOPICALLY AFFECTED AFFECTED TO THE AND AND AFFECTED SURROUNDING SURROUNDING AND AREAS TWICE AREAS TWICE SURROUNDIN DAILY IN DAILY IN G AREAS THE MORNING THE MORNING TWICE AND IN THE AND IN THE DAILY IN EVENING EVENING THE MORNING AND IN THE EVENING cyclobenzap cyclobenzap No cyclobenza [place] rine 10 mg rine 10 mg taylor 10 Communi tablet 1-2 tablet 1-2 mg tablet ty every 6-8 every 6-8 1-2 every Hospita hours as hours as 6-8 hours l needed needed as needed Clinic s dicyclomine dicyclomine No dicyclomin [place] 20 mg 20 mg e 20 mg Communi tablet tablet tablet ty Hospita l Clinics FreeStyle FreeStyle No FreeStyle [place] Sandra 14 Sandra 14 Sandra 14 Com jimbo Day [place] [facility] [facility] Free[facility] FreeStyle No FreeStyle [place] Sandra 14 Sandra 14 Sandra 14 Com jimbo Day Sensor Day Sensor Day Sensor ty kit USE kit USE kit USE Hospita DIRECTED DIRECTED DIRECTED l Clinics levothyroxi levothyroxi No levothyrox [place] ne 112 mcg ne 112 mcg ine 112 Communi tablet TAKE tablet TAKE mcg tablet ty 1 TABLET BY 1 TABLET BY TAKE 1 Hospita MOUTH EVERY MOUTH EVERY TABLET BY l DAY DAY MOUTH Clinics EVERY DAY losartan losartan No losartan [facility] 100 mg 100 mg 100 mg Communi tablet Take tablet Take tablet ty 1 tablet 1 tablet Take 1 Hospi ta every day every day tablet l by oral by oral every day Clin ics route for route for by oral 90 days. 90 days. route for 90 days. mometasone mometasone No mometasone [place] 0.1 % 0.1 % 0.1 % Communi topical topical topical ty cream APPLY cream APPLY cream Hospita A THIN A THIN APPLY A l LAYER TO LAYER TO THIN LAYER C linics THE THE TO THE AFFECTED AFFECTED AFFECTED AREA(S) BY AREA(S) BY AREA(S) BY TOPICAL TOPICAL TOPICAL ROUTE ONCE ROUTE ONCE ROUTE ONCE DAILY DAILY DAILY ondansetron ondansetron No 1 Q7H ondansetro [place] 8 mg 8 mg n 8 mg Communi disintegrat disintegrat disintegra ty ing tablet ing tablet ting [facility] Place 1 Place 1 tablet l tablet tablet Place 1 Clinics every 6-8 every 6-8 tablet hours by hours by every 6-8 translingua translingua hours by l route as l route as translingu needed. needed. al route as needed. ondansetron ondansetron No ondansetro [place] HCl 4 mg HCl 4 mg n HCl 4 mg [facility] tablet tablet tablet ty Hospita l Clinics OneTouch OneTouch No 1strip( BID OneTouch [place] Ultra Blue Ultra Blue s) Ultra Blue Communi Test Strip Test Strip Test Strip ty Take 1 Take 1 Take 1 Hospita strip twice strip twice strip l a day by a day by twice a Clin ics miscell. miscell. day by route for route for miscell. 90 days. 90 days. route for 90 days. OneTouch OneTouch No 1strip( TID OneTouch [place] Verio test Verio test s) Verio test Communi strips Take strips Take strips ty 1 strip 3 1 strip 3 Take 1 [facility] times a day times a day strip 3 l by miscell. by miscell. times a Clinics route for route for day by 90 days. 90 days. miscell. route for 90 days. pantoprazol pantoprazol No pantoprazo [place] e 40 mg e 40 mg le 40 mg Commu ni tablet,eufemia tablet,eufemia tablet,del ty yed release yed release ayed H [facility]spita Take 1 Take 1 release l tablet tablet Take 1 Clinics every day every day tablet by oral by oral every day route. route. by oral route. Symbicort Symbicort No Symbicort [place] 160 mcg-4.5 160 mcg-4.5 160 [facility] mcg/actuati mcg/actuati mcg-4.5 ty on HFA on HFA mcg/actuat Hospi ta aerosol aerosol ion HFA l inhaler inhaler aerosol Clinic s Inhale 2 Inhale 2 inhaler puffs twice puffs twice Inhale 2 a day by a day by puffs inhalation inhalation twice a route for route for day by 30 days. 30 days. inhalation route for 30 days. Trulicity Trulicity No Trulicity [place] 0.75 mg/0.5 0.75 mg/0.5 0.75 [facility] mL mL mg/0.5 mL ty subcutaneou subcutaneou subcutaneo Hospita s pen s pen us pen l injector injector injector Cli nics INJECT 1 INJECT 1 INJECT 1 PEN UNDER PEN UNDER PEN UNDER THE SKIN THE SKIN THE SKIN EVERY WEEK EVERY WEEK EVERY WEEK DIRECTED DIRECTED DIRECTED venlafaxine venlafaxine No venlafaxin [place] ER 150 mg ER 150 mg e ER 150 [facility] capsule,ext capsule,ext mg t y ended ended capsule,ex Hospita release 24 release 24 tended l hr TAKE 1 hr TAKE 1 release 24 Clinics CAPSULE BY CAPSULE BY hr TAKE 1 MOUTH 1 MOUTH 1 CAPSULE BY TIME EACH TIME EACH MOUTH 1 DAY DAY TIME EACH DAY Vitamin D Vitamin D No Vitamin D [place] 5000 iu 5000 iu 5000 iu [facility] Xigduo XR No Xigduo XR [place] 10 mg-500 10 mg-500 10 mg-500 Communi mg mg mg ty tablet,exte tablet,exte tablet,ext Hospita nded nded ended l release release release Clinic s TAKE 1 TAKE 1 TAKE 1 TABLET BY TABLET BY TABLET BY MOUTH EVERY MOUTH EVERY MOUTH DAY DAY EVERY DAY Zyrtec 10 Zyrtec 10 No 1 Q1D Zyrtec 10 [place] mg tablet mg tablet mg tablet Communi Take 1 Take 1 Take 1 ty tablet tablet tablet Hospita every day every day every day l by oral by oral by oral Clinic s route. route. route. Aspir-81 Aspir-81 No Aspir-81 Swe amy one tablet one tablet one tablet Communi daily daily daily ty [facility] binaxnow binaxno No binaxnow Swe amy cov kit cov kit cov kit Commun i home eden home ed[facility] home [facility] Binax[facility] No BinaxNOW Swe [facility]y COVID-19 Ag COVID-19 Ag COVID-19 Communi Self Test Self Test Ag Self ty kit TEST kit TEST Test kit [facility]ospita DIRECTED DIRECTED TEST l TODAY TODAY DIRECTED Clinics TODAY clotrimazol clotrimazol No clotrimazo [place] e-betametha e-betametha le-betamet Communi sone 1 sone 1 hasone 1 ty %-0.05 % %-0.05 % %-0.05 % [facility] topical topical topical l cream APPLY cream APPLY cream Clinics TOPICALLY TOPICALLY APPLY TO THE TO THE TOPICALLY AFFECTED AFFECTED TO THE AND AND AFFECTED SURROUNDING SURROUNDING AND AREAS TWICE AREAS TWICE SURROUNDIN DAILY IN DAILY IN G AREAS THE MORNING THE MORNING TWICE AND IN THE AND IN THE DAILY IN EVENING EVENING THE MORNING AND IN THE EVENING cyclobenzap cyclobenzap No cyclobenza [place] rine 10 mg rine 10 mg taylor 10 Communi tablet 1-2 tablet 1-2 mg tablet ty every 6-8 every 6-8 1-2 every Hospita hours as hours as 6-8 hours l needed needed as needed Clinic s diclofenac diclofenac No diclofenac [place] sodium 75 sodium 75 sodium 75 Communi mg mg mg ty tablet,eufemia tablet,eufemia tablet,del Hospita yed release yed release ayed l TAKE 1 TAKE 1 release Clinics TABLET BY TABLET BY TAKE 1 MOUTH TWICE MOUTH TWICE TABLET BY DAILY DAILY MOUTH TWICE DAILY dicyclomine dicyclomine No dicyclomin [place] 20 mg 20 mg e 20 mg Communi tablet tablet tablet ty [facility] Clin[facility] FreeStyle FreeStyle No FreeStyle [place] Sandra 14 Sandra 14 Sandra 14 Com jimbo Day [place] [facility] FreeStyle FreeStyle No FreeStyle [place] Sandra 14 Sandra 14 Sandra 14 Com jimbo Day Sensor Day Sensor Day Sensor ty kit USE kit USE kit USE Hospita DIRECTED DIRECTED DIRECTED l Clinics levothyroxi levothyroxi No levothyrox [place] ne 112 mcg ne 112 mcg ine 112 Communi tablet TAKE tablet TAKE mcg tablet ty 1 TABLET BY 1 TABLET BY TAKE 1 Hospita MOUTH EVERY MOUTH EVERY TABLET BY l DAY DAY MOUTH Clinics EVERY DAY losartan losartan No losartan Swe amy 100 mg 100 mg 100 mg Communi tablet TAKE tablet TAKE tablet ty 1 TABLET BY 1 TABLET BY TAKE 1 Hospita MOUTH 1 MOUTH 1 TABLET BY l TIME EACH TIME EACH MOUTH 1 Cl inics DAY DAY TIME EACH DAY mometasone mometasone No mometasone [place] 0.1 % 0.1 % 0.1 % Communi topical topical topical ty cream APPLY cream APPLY cream Hospita A THIN A THIN APPLY A l LAYER TO LAYER TO THIN LAYER C linics THE THE TO THE AFFECTED AFFECTED AFFECTED AREA(S) BY AREA(S) BY AREA(S) BY TOPICAL TOPICAL TOPICAL ROUTE ONCE ROUTE ONCE ROUTE ONCE DAILY DAILY DAILY ondansetron ondansetron No 1 Q7H ondansetro [place] 8 mg 8 mg n 8 mg Communi disintegrat disintegrat disintegra ty ing tablet ing tablet ting [facility] Place 1 Place 1 tablet l tablet tablet Place 1 Clinics every 6-8 every 6-8 tablet hours by hours by every 6-8 translingua translingua hours by l route as l route as translingu needed. needed. al route as needed. ondansetron ondansetron No ondansetro [place] HCl 4 mg HCl 4 mg n HCl 4 mg [facility] tablet tablet tablet ty Hospita l Clinics OneTouch OneTouch No 1strip( BID OneTouch [place] Ultra Blue Ultra Blue s) Ultra Blue Communi Test Strip Test Strip Test Strip ty Take 1 Take 1 Take 1 Hospita strip twice strip twice strip l a day by a day by twice a Clin ics miscell. miscell. day by route for route for miscell. 90 days. 90 days. route for 90 days. OneTouch OneTouch No 1strip( TID OneTouch [place] Verio test Verio test s) Verio test Communi strips Take strips Take strips ty 1 strip 3 1 strip 3 Take 1 Hos [facility] times a day times a day strip 3 l by miscell. by miscell. times a Clinics route for route for day by 90 days. 90 days. miscell. route for 90 days. pantoprazol pantoprazol No pantoprazo [place] e 40 mg e 40 mg le 40 mg Commu ni tablet,eufemia tablet,eufemia tablet,del ty yed release yed release ayed H ospita Take 1 Take 1 release l tablet tablet Take 1 Clinics every day every day tablet by oral by oral every day route. route. by oral route. Symbicort Symbicort No Symbicort [place] 160 mcg-4.5 160 mcg-4.5 160 C ommuni mcg/actuati mcg/actuati mcg-4.5 ty on HFA on HFA mcg/actuat Hospi ta aerosol aerosol ion HFA l inhaler inhaler aerosol Clinic s Inhale 2 Inhale 2 inhaler puffs twice puffs twice Inhale 2 a day by a day by puffs inhalation inhalation twice a route for route for day by 30 days. 30 days. inhalation route for 30 days. Trulicity Trulicity No Trulicity [place] 1.5 mg/0.5 1.5 mg/0.5 1.5 mg/0.5 Communi mL mL mL ty subcutaneou subcutaneou subcutaneo Hospita s pen s pen us pen l injector injector injector Cli nics ADMINISTER ADMINISTER ADMINISTER 1.5 MG 1.5 MG 1.5 MG UNDER THE UNDER THE UNDER THE SKIN 1 TIME SKIN 1 TIME SKIN 1 A WEEK A WEEK TIME A WEEK venlafaxine venlafaxine No venlafaxin [place] ER 150 mg ER 150 mg e ER 150 C ommuni capsule,ext capsule,ext mg t y ended ended capsule,ex Hospita release 24 release 24 tended l hr TAKE 1 hr TAKE 1 release 24 Clinics CAPSULE BY CAPSULE BY hr TAKE 1 MOUTH EVERY MOUTH EVERY CAPSULE BY DAY DAY MOUTH EVERY DAY Vitamin D Vitamin D No Vitamin D [place] 5000 iu 5000 iu 5000 iu [facility] Xigduo XR No Xigduo XR [place] 10 mg-500 10 mg-500 10 mg-500 Communi mg mg mg ty tablet,exte tablet,exte tablet,ext Hospita nded nded ended l release release release Clinic s TAKE 1 TAKE 1 TAKE 1 TABLET BY TABLET BY TABLET BY MOUTH DAILY MOUTH DAILY MOUTH DAILY Zyrtec 10 Zyrtec 10 No 1 Q1D Zyrtec 10 [place] mg tablet mg tablet mg tablet Communi Take 1 Take 1 Take 1 ty tablet tablet tablet Hospita every day every day every day l by oral by oral by oral Clinic s route. route. route. Aspir-81 Aspir-81 No Aspir-81 Swe amy one tablet one tablet one tablet Communi daily daily daily ty Hospita l [facility] clotrimazol clotrimazol No clotrimazo [place] e-betametha e-betametha le-betamet Communi sone 1 sone 1 hasone 1 ty %-0.05 % %-0.05 % %-0.05 % Hos le[facility] topical topical topical l cream APPLY cream APPLY cream Clinics TOPICALLY TOPICALLY APPLY TO THE TO THE TOPICALLY AFFECTED AFFECTED TO THE AND AND AFFECTED SURROUNDING SURROUNDING AND AREAS TWICE AREAS TWICE SURROUNDIN DAILY IN DAILY IN G AREAS THE MORNING THE MORNING TWICE AND IN THE AND IN THE DAILY IN EVENING EVENING THE MORNING AND IN THE EVENING cyclobenzap cyclobenzap No cyclobenza [place] rine 10 mg rine 10 mg taylor 10 Communi tablet 1-2 tablet 1-2 mg tablet ty every 6-8 every 6-8 1-2 every Hospita hours as hours as 6-8 hours l needed needed as needed Clinic s diclofenac diclofenac No diclofenac [place] sodium 75 sodium 75 sodium 75 Communi mg mg mg ty tablet,eufemia tablet,eufemia tablet,del Hospita yed release yed release ayed l TAKE 1 TAKE 1 release Clinics TABLET BY TABLET BY TAKE 1 MOUTH TWICE MOUTH TWICE TABLET BY DAILY DAILY MOUTH TWICE DAILY dicyclomine dicyclomine No dicyclomin [place] 20 mg 20 mg e 20 mg Communi tablet tablet tablet ty [facility] FreeStyle FreeStyle No FreeStyle [place] Sandra 14 Sandra 14 Sandra 14 Com jimbo Day [place] [facility] FreeStyle FreeStyle No FreeStyle [place] Sandra 14 Sandra 14 Sandra 14 Com jimbo Day Sensor Day Sensor Day Sensor ty kit USE kit USE kit USE Hospita DIRECTED DIRECTED DIRECTED l Clinics levothyroxi levothyroxi No levothyrox [place] ne 112 mcg ne 112 mcg ine 112 Communi tablet TAKE tablet TAKE mcg tablet ty 1 TABLET BY 1 TABLET BY TAKE 1 Hospita MOUTH EVERY MOUTH EVERY TABLET BY l DAY DAY MOUTH Clinics EVERY DAY losartan losartan No losartan Swe [place] 100 mg 100 mg 100 mg Communi tablet TAKE tablet TAKE tablet ty 1 TABLET BY 1 TABLET BY TAKE 1 Hospita MOUTH 1 MOUTH 1 TABLET BY l TIME EACH TIME EACH MOUTH 1 Cl inics DAY DAY TIME EACH DAY mometasone mometasone No mometasone [place] 0.1 % 0.1 % 0.1 % Communi topical topical topical ty cream APPLY cream APPLY cream Hospita A THIN A THIN APPLY A l LAYER TO LAYER TO THIN LAYER C linics THE THE TO THE AFFECTED AFFECTED AFFECTED AREA(S) BY AREA(S) BY AREA(S) BY TOPICAL TOPICAL TOPICAL ROUTE ONCE ROUTE ONCE ROUTE ONCE DAILY DAILY DAILY ondansetron ondansetron No 1 Q7H ondansetro [place] 8 mg 8 mg n 8 mg Communi disintegrat disintegrat disintegra ty ing tablet ing tablet ting Hos [facility] Place 1 Place 1 tablet l tablet tablet Place 1 Clinics every 6-8 every 6-8 tablet hours by hours by every 6-8 translingua translingua hours by l route as l route as translingu needed. needed. al route as needed. ondansetron ondansetron No ondansetro [place] HCl 4 mg HCl 4 mg n HCl 4 mg C ommuni tablet tablet tablet ty Hospita l Clinics OneTouch OneTouch No 1strip( BID OneTouch [place] Ultra Blue Ultra Blue s) Ultra Blue Communi Test Strip Test Strip Test Strip ty Take 1 Take 1 Take 1 Hospita strip twice strip twice strip l a day by a day by twice a Clin ics miscell. miscell. day by route for route for miscell. 90 days. 90 days. route for 90 days. OneTouch OneTouch No 1strip( TID OneTouch [place] Verio test Verio test s) Verio test Communi strips Take strips Take strips ty 1 strip 3 1 strip 3 Take 1 Hos le[facility] times a day times a day strip 3 l by miscell. by miscell. times a Clinics route for route for day by 90 days. 90 days. miscell. route for 90 days. pantoprazol pantoprazol No pantoprazo [place] e 40 mg e 40 mg le 40 mg Commu ni tablet,eufemia tablet,eufemia tablet,del ty yed release yed release ayed H ospita Take 1 Take 1 release l tablet tablet Take 1 Clinics every day every day tablet by oral by oral every day route. route. by oral route. Symbicort Symbicort No Symbicort [place] 160 mcg-4.5 160 mcg-4.5 160 C ommuni mcg/actuati mcg/actuati mcg-4.5 ty on HFA on HFA mcg/actuat Hospi ta aerosol aerosol ion HFA l inhaler inhaler aerosol Clinic s Inhale 2 Inhale 2 inhaler puffs twice puffs twice Inhale 2 a day by a day by puffs inhalation inhalation twice a route for route for day by 30 days. 30 days. inhalation route for 30 days. Trulicity Trulicity No Trulicity [place] 1.5 mg/0.5 1.5 mg/0.5 1.5 mg/0.5 Communi mL mL mL ty subcutaneou subcutaneou subcutaneo Hospita s pen s pen us pen l injector injector injector Cli nics ADMINISTER ADMINISTER ADMINISTER 1.5 MG 1.5 MG 1.5 MG UNDER THE UNDER THE UNDER THE SKIN 1 TIME SKIN 1 TIME SKIN 1 A WEEK A WEEK TIME A WEEK venlafaxine venlafaxine No venlafaxin [place] ER 150 mg ER 150 mg e ER 150 C ommuni capsule,ext capsule,ext mg t y ended ended capsule,ex Hospita release 24 release 24 tended l hr TAKE 1 hr TAKE 1 release 24 Clinics CAPSULE BY CAPSULE BY hr TAKE 1 MOUTH EVERY MOUTH EVERY CAPSULE BY DAY DAY MOUTH EVERY DAY Vitamin D Vitamin D No Vitamin D [place] 5000 iu 5000 iu 5000 iu Commun i daily daily daily ty Hospita l Clinics Xigduo XR Xigduo XR No Xigduo XR [place] 10 mg-500 10 mg-500 10 mg-500 Communi mg mg mg ty tablet,exte tablet,exte tablet,ext Hospita nded nded ended l release release release Clinic s TAKE 1 TAKE 1 TAKE 1 TABLET BY TABLET BY TABLET BY MOUTH DAILY MOUTH DAILY MOUTH DAILY Zyrtec 10 Zyrtec 10 No 1 Q1D Zyrtec 10 [place] mg tablet mg tablet mg tablet Communi Take 1 Take 1 Take 1 ty tablet tablet tablet Hospita every day every day every day l by oral by oral by oral Clinic s route. route. route. Aspir-81 Aspir-81 No Aspir-81 Swe amy one tablet one tablet one tablet Communi daily daily daily ty Hospita l Clinics atorvastati atorvastati No atorvastat [place] n 20 mg n 20 mg in 20 mg Commu ni tablet TAKE tablet TAKE tablet ty 1 TABLET BY 1 TABLET BY TAKE 1 Hospita MOUTH EVERY MOUTH EVERY TABLET BY l DAY DAY MOUTH Clinics EVERY DAY cyclobenzap cyclobenzap No cyclobenza [place] rine 10 mg rine 10 mg taylor 10 Communi tablet 1-2 tablet 1-2 mg tablet ty every 6-8 every 6-8 1-2 every Hospita hours as hours as 6-8 hours l needed needed as needed Clinic s FreeStyle FreeStyle No FreeStyle [place] Sandra 14 Sandra 14 Sandra 14 Com jimbo Day [place] [facility] FreeStyle FreeStyle No FreeStyle [place] Sandra 14 Sandra 14 Sandra 14 Com Day Sensor Day Sensor Day Sensor ty kit USE kit USE kit USE Hospita DIRECTED DIRECTED DIRECTED l Clinics levothyroxi levothyroxi No 1 Q1D levothyrox [place] ne 125 mcg ne 125 mcg ine 125 Communi tablet Take tablet Take mcg tablet ty 1 tablet 1 tablet Take 1 Hospi ta every day every day tablet l by oral by oral every day Clin ics route. route. by oral route. losartan losartan No losartan [place] 100 mg 100 mg 100 mg Communi tablet Take tablet Take tablet ty 1 tablet 1 tablet Take 1 Hospi ta every day every day tablet l by oral by oral every day Clin ics route for route for by oral 90 days. 90 days. route for 90 days. methylpredn methylpredn No methylpred [place] isolone 4 isolone 4 nisolone 4 Communi mg tablets mg tablets mg tablets ty in a dose in a dose in a dose [facility] pack as pack as pack as l directed directed directed Cli nics mometasone mometasone No mometasone [place] 0.1 % 0.1 % 0.1 % Communi topical topical topical ty cream APPLY cream APPLY cream [facility] A THIN A THIN APPLY A l LAYER TO LAYER TO THIN LAYER C linics THE THE TO THE AFFECTED AFFECTED AFFECTED AREA(S) BY AREA(S) BY AREA(S) BY TOPICAL TOPICAL TOPICAL ROUTE ONCE ROUTE ONCE ROUTE ONCE DAILY DAILY DAILY OneTouch OneTouch No 1strip( TID OneTouch [place] Verio test Verio test s) Verio test Communi strips Take strips Take strips ty 1 strip 3 1 strip 3 Take 1 Hos leila times a day times a day strip 3 l by miscell. by miscell. times a Clinics route for route for day by 90 days. 90 days. miscell. route for 90 days. Protonix 40 Protonix 40 No 1 Q1D Protonix [place] mg mg 40 mg Communi tablet,eufemia tablet,eufemia tablet,del ty yed release yed release ayed H ospita Take 1 Take 1 release l tablet tablet Take 1 Clinics every day every day tablet by oral by oral every day route. route. by oral route. tramadol 50 tramadol 50 No tramadol [place] mg tablet mg tablet 50 mg Comm uni tablet ty Hospita l Clinics Trulicity Trulicity No Trulicity [place] 0.75 mg/0.5 0.75 mg/0.5 0.75 C ommuni mL mL mg/0.5 mL ty subcutaneou subcutaneou subcutaneo Hospita s pen s pen us pen l injector injector injector Cli nics INJECT 1 INJECT 1 INJECT 1 PEN UNDER PEN UNDER PEN UNDER THE SKIN THE SKIN THE SKIN EVERY WEEK EVERY WEEK EVERY WEEK DIRECTED DIRECTED DIRECTED Immunizations Ordered Filled Immunization Date Status Comments [facility] e Immunization Name Name SARS-COV-2 COVID-19 2021-05-05 Completed Unive rsity of PFIZER VACCINE 00:00:00 [facility] SARS-COV-2 COVID-19 2021-05-05 Completed Unive rsity of PFIZER VACCINE 00:00:00 [facility] SARS-COV-2 COVID-19 2021-05-05 Completed Unive rsity of PFIZER VACCINE 00:00:00 [facility] SARS-COV-2 COVID-19 2021-05-05 Completed Unive rsity of PFIZER VACCINE 00:00:00 [facility] SARS-COV-2 COVID-19 2021-05-05 Completed Unive rsity of PFIZER VACCINE 00:00:00 [facility] SARS-COV-2 COVID-19 2021-05-05 Completed Unive rsity of PFIZER VACCINE 00:00:00 [facility] SARS-COV-2 COVID-19 2021-04-10 Completed Unive rsity of PFIZER VACCINE 00:00:00 [facility] SARS-COV-2 COVID-19 2021-04-10 Completed Unive rsity of PFIZER VACCINE 00:00:00 [facility] SARS-COV-2 COVID-19 2021-04-10 Completed Unive rsity of PFIZER VACCINE 00:00:00 [facility] SARS-COV-2 COVID-19 2021-04-10 Completed Unive rsity of PFIZER VACCINE 00:00:00 [facility] SARS-COV-2 COVID-19 2021-04-10 Completed Unive rsity of PFIZER VACCINE 00:00:00 [facility] SARS-COV-2 COVID-19 2021-04-10 Completed Unive rsity of PFIZER VACCINE 00:00:00 [facility] Vital Signs Vital Name Observation Time Observation Value Comments Source BP Diastolic 2022-06-19 00:00:00 64 mm[Hg] [facility] s Height 2022-06-19 00:00:00 68.5 [in_i] [facility] s BMI (Body Mass 2022-06-19 00:00:00 32.8 kg/m2 [facility] s BP Systolic 2022-06-19 00:00:00 120 mm[Hg] [facility] s Body Weight 2022-06-19 00:00:00 3504 [oz_av] [facility] s BP Diastolic 2022-05-29 00:00:00 80 mm[Hg] [facility] s Height 2022-05-29 00:00:00 68.5 [in_i] [facility] s BMI (Body Mass 2022-05-29 00:00:00 33.5 kg/m2 [facility]) [facility] Clinic s BP Systolic 2022-05-29 00:00:00 130 mm[Hg] [facility] s Body Weight 2022-05-29 00:00:00 3577.6 [oz_av] [facility] s BP Diastolic 2022-02-28 00:00:00 90 mm[Hg] [facility] s Height 2022-02-28 00:00:00 68.5 [in_i] [facility] s BMI (Body Mass 2022-02-28 00:00:00 34.2 kg/m2 [facility]) [facility] Clinic s BP Systolic 2022-02-28 00:00:00 128 mm[Hg] [facility] s Body Weight 2022-02-28 00:00:00 3648 [oz_av] [facility] s BP Diastolic 2021-12-13 00:00:00 80 mm[Hg] [facility] s Height 2021-12-13 00:00:00 68.5 [in_i] [facility] s BMI (Body Mass 2021-12-13 00:00:00 34.4 kg/m2 [facility] s BP Systolic 2021-12-13 00:00:00 120 mm[Hg] [facility] s Body Weight 2021-12-13 00:00:00 3670.4 [oz_av] [facility] s Systolic blood 2021-11-28 17:00:00 147 mm[Hg] [facility]iver [facility] Diastolic blood 2021-11-28 17:00:00 86 mm[Hg] [facility]ive [facility] Heart rate 2021-11-28 17:00:00 76 /min [facility] Respiratory rate 2021-11-28 17:00:00 17 /min [facility] Oxygen saturation in 2021-11-28 17:00:00 96 /min [facility] by [place] [employer] [facility] Pulse oximetry Branch Body temperature 2021-11-28 16:45:00 36.22 Kat [facility] Body height 2021-11-27 14:46:00 174 cm [facility] Body weight 2021-11-27 14:46:00 117.9 kg [facility] BMI 2021-11-27 14:46:00 38.94 kg/m2 [facility] Systolic blood 2021-11-28 14:07:00 143 mm[Hg] [facility] Diastolic blood 2021-11-28 14:07:00 79 mm[Hg] [facility]ive rsity of pressure [facility] Heart rate 2021-11-28 14:07:00 74 /min [facility] Body temperature 2021-11-28 14:07:00 36.11 Kat [facility] Respiratory rate 2021-11-28 14:07:00 18 /min [facility] Oxygen saturation in 2021-11-28 14:07:00 98 /min [facility] [place] [facility] Pulse oximetry Branch Body height 2021-11-27 14:46:00 174 cm [facility] Body weight 2021-11-27 14:46:00 117.9 kg [facility] BMI 2021-11-27 14:46:00 38.94 kg/m2 [facility] BP Diastolic 2021-11-22 00:00:00 78 mm[Hg] [facility] s Height 2021-11-22 00:00:00 68.5 [in_i] [facility] s BMI (Body Mass 2021-11-22 00:00:00 34.6 kg/m2 [facility] s BP Systolic 2021-11-22 00:00:00 120 mm[Hg] [facility] s Body Weight 2021-11-22 00:00:00 3689.6 [oz_av] [facility] s Systolic blood 2021-09-26 15:25:00 116 mm[Hg] [facility] Diastolic blood 2021-09-26 15:25:00 70 mm[Hg] [facility]ive [facility]ity of [facility] Heart rate 2021-09-26 15:22:00 74 /min [facility] Respiratory rate 2021-09-26 15:22:00 13 /min [facility] in 2021-09-26 15:22:00 97 /min [facility] blood by [facility] Pulse oximetry Branch Body temperature 2021-09-26 15:12:00 36.39 Kat [facility] Body height 2021-09-25 14:45:00 174 cm [facility] Body weight 2021-09-25 14:45:00 117.935 kg [facility] BMI 2021-09-25 14:45:00 38.96 kg/m2 [facility] Systolic blood 2021-09-26 13:31:00 116 mm[Hg] Univer sity of pressure [facility] Branch Diastolic blood 2021-09-26 13:31:00 77 mm[Hg] [facility] Heart rate 2021-09-26 13:31:00 74 /min [facility] Body temperature 2021-09-26 13:31:00 36.56 Kat [facility] Respiratory rate 2021-09-26 13:31:00 17 /min [facility] Oxygen saturation in 2021-09-26 13:31:00 99 /min [facility] blood by [facility] Pulse oximetry Branch Body height 2021-09-25 14:45:00 174 cm [facility] Body weight 2021-09-25 14:45:00 117.935 kg [facility] BMI 2021-09-25 14:45:00 38.96 kg/m2 [facility] Height 2020-12-06 00:00:00 68.5 [in_i] [facility] s BP Diastolic 2020-11-08 00:00:00 76 mm[Hg] [facility] s Height 2020-11-08 00:00:00 68.5 [in_i] [facility] s BMI (Body Mass 2020-11-08 00:00:00 36.6 kg/m2 [facility] Index) [facility] Clinic s BP Systolic 2020-11-08 00:00:00 130 mm[Hg] [facility] s Body Weight 2020-11-08 00:00:00 3904 [oz_av] [facility] s BP Diastolic 2020-10-18 00:00:00 78 mm[Hg] [facility] s Height 2020-10-18 00:00:00 68.5 [in_i] [facility] s BMI (Body Mass 2020-10-18 00:00:00 36.4 kg/m2 [facility] Index) [facility] Clinic s BP Systolic 2020-10-18 00:00:00 118 mm[Hg] [facility] s Body Weight 2020-10-18 00:00:00 3888 [oz_av] [facility] s Respiratory rate 2022-05-22 19:06:00 14 /min Meth [facility] Body height 2022-05-22 19:06:00 172.7 cm [facility] Body weight 2022-05-22 19:06:00 99.791 kg [facility] BMI 2022-05-22 19:06:00 33.45 kg/m2 [facility] Procedures Procedure Date / Time Performing Source Performed Clinician CT, abdomen + pelvis, w/ 2022-06-19 [place] [facility] contrast 00:00:00 Hospital Clinics XR, hip + pelvis, unilateral, 2022-06-19 [facility] 2 or 3 view 00:00:00 Hospital Clinics US, abdomen 2022-05-16 [place] [facility] 00:00[facility], abdomen + pelvis, w/ 2021-12-04 [facility] contrast 00:00:00 Hospital Clinics Cataract Surgery 2021-11-29 [place] Commun[facility] y 00:00:00 Hospital Clinics PHACOEMULSIFICATION OF 2021-11-28 [facility] CATARACT WITH INTRAOCULAR 16:06:00 Medica l Branch LENS IMPLANT POCT GLUCOSE (AUTOMATED) 2021-11-28 [facility] 14:09:00 Medical Branch POCT GLUCOSE (AUTOMATED) 2021-11-28 [facility] 14:09:00 Medical Branch DAY SURGERY - ADC 2021-11-28 Doctor Tonyassgerry, [facility] 06:01:00 [place] [facility] CONSENT/REFUSAL FOR DIAGNOSIS 2021-11-26 Doctor Unassigned, [facility] AND TREATMENT 17:55:33 [place] [facility] CONSENT/REFUSAL FOR DIAGNOSIS 2021-11-26 Doctor Unassigned, [facility] TREATMENT 17:55:33 [place] [facility] ASSIGNMENT OF BENEFITS 2021-11-26 Doctor Unassigned, [facility] 17:55:14 [place] [facility] ASSIGNMENT OF BENEFITS 2021-11-26 Doctor Unassgerry [facility] 17:55:14 [place] [facility] NOTICE OF PRIVACY PRACTICES 2021-11-26 Doctor Unassigned, [facility] 17:55:00 [place] [facility] NOTICE OF PRIVACY PRACTICES 2021-11-26 Doctor Unassigned, [facility] 17:55:00 [place] [facility] CONSENT/REFUSAL FOR DIAGNOSIS 2021-11-26 Doctor Tonyassgerry [facility] T[facility] 17:54:43 [place] [facility] CONSENT/REFUSAL FOR DIAGNOSIS 2021-11-26 Doctor Tonyassgerry [facility] T[facility] 17:54:43 [place] [facility] ASSIGNMENT OF BENEFITS 2021-11-26 Doctor Tom [facility] 17:54:22 [place] [facility] ASSIGNMENT OF BENEFITS 2021-11-26 Doctor Tom [facility] 17:54:22 [place] [facility] PHACOEMULSIFICATION OF 2021-09-26 [facility] CATARACT WITH INTRAOCULAR 14:32:00 [facility] LENS IMPLANT POCT GLUCOSE(AGE >30DAYS) [facility] 13:35[facility]00 [facility] POCT GLUCOSE(AGE >30DAYS) 2021-09-26 [facility] 13:35:00 [facility] POCT GLUCOSE (AUTOMATED) 2021-09-26 [facility] 13:30:00 [facility] POCT GLUCOSE (AUTOMATED) 2021-09-26 [facility] 13:30:00 Medical Branch DAY SURGERY - ADC 2021-09-26 Doctor Tom [facility] 06:01:00 [place] [facility] Cataract Surgery 2021-09-24 Diana Juarezit y 00:00:00 Hospital Clinics CONSENT/REFUSAL FOR DIAGNOSIS 2021-09-17 Doctor Tom [facility] AND TREATMENT 22:53:52 [place] [facility] CONSENT/REFUSAL FOR DIAGNOSIS 2021-09-17 Doctor Tonyassgerry [facility] TRE[facility] 22:53:52 [place] [facility] ASSIGNMENT OF BENEFITS 2021-09-17 Doctor Tom [facility] 22:53:34 [place] [facility] ASSIGNMENT OF BENEFITS 2021-09-17 Doctor Tom [facility] 22:53:34 [place] [facility] PATIENT FINANCIAL POLICY 2021-09-17 Doctor Tom [facility] 22:53:16 [place] [facility] PATIENT FINANCIAL POLICY 2021-09-17 Doctor Tom [facility] 22:53:16 [place] [facility] NO SHOW OR MISSED APPOINTMENT 2021-09-17 Doctor Unassigned, [facility] POLICY ACKNOWLEDGEMENT 22:52:57 [place] [facility] NO SHOW OR MISSED APPOINTMENT 2021-09-17 Doctor Unassigned, [facility] POLICY ACKNOWLEDGEMENT 22:52:57 [place] [facility] NOTICE OF PRIVACY PRACTICES 2021-09-17 Doctor Unassgerry, [facility] 22:52:35 [place] [facility] NOTICE OF PRIVACY PRACTICES 2021-09-17 Doctor Unassigned, [facility] 22:52:35 [place] [facility] CONSENT/REFUSAL FOR DIAGNOSIS 2021-09-17 Doctor Unassigned, [facility] T[facility] 22:52:15 [place] [facility] CONSENT/REFUSAL FOR DIAGNOSIS 2021-09-17 Doctor Unassigned, [facility] TREATMENT 22:52:15 [place] [facility] ASSIGNMENT OF BENEFITS 2021-09-17 [facility] [facility] 22:51:55 [facility] ASSIGNMENT OF BENEFITS 2021-09-17 Doctor Unassgerry, [facility] 22:51:55 [facility] PHYSICIAN ORDERS 2021-09-17 Doctor Unassgerry [facility] 06:01:00 [facility] PHYSICIAN ORDERS 2021-09-17 Doctor Unassgerry [facility] 06:01:00 [facility] Cardiac Catheterization 2020-10-26 [facility] ommunity 00:00:00 Hospital Clinics Section [facility] Gastric Bypass [facility] Knee Surgery [facility] Carpal Tunnel Surgery Counts include 234 beds at the [facility] Clinics Cholecystectomy [facility] Plan of Care Planned Activity Planned Date Details Comments Source Future Scheduled 2022-06-24 HEPATITIS B VACCINES [facility] Test 17:48:33 (1 of 3 - 3-dose series) [code = HEPATITIS B VACCINES (1 of 3 - 3-dose series)] Future Scheduled 2022-06-24 Pneumococcal Vaccine: [facility] Test 17:48:33 Pediatrics (0 to 5 Years) and At-Risk Patients (6 to 64 Years) (1 - PCV) [code = Pneumococcal Vaccine: Pediatrics (0 to 5 Years) and At-Risk Patients (6 to 64 Years) (1 - PCV)] Future Scheduled 2022-06-24 DIABETES: RETINAL EYE Me [facility] Test 17:48:33 EXAM [code = DIABETES: RETINAL EYE EXAM] Future Scheduled 2022-06-24 DIABETIC FOOT EXAM [facility] Test 17:48:33 [code = DIABETIC FOOT EXAM] Future Scheduled 2022-06-24 URINE MICROALBUMIN [facility] Test 17:48:33 [code = URINE MICROALBUMIN] Future Scheduled 2022-06-24 Hepatitis C screening [facility] Test 17:48:33 (procedure) [code = 496674349] Future Scheduled 2022-06-24 Screening for [facility] Test 17:48:33 malignant neoplasm of cervix (procedure) [code = 223820954] Future Scheduled 2022-06-24 BREAST CANCER [facility] Test 17:48:33 SCREENING [code = BREAST CANCER SCREENING] Future Scheduled 2022-06-24 COLONOSCOPY SCREENING [facility] Test 17:48:33 [code = COLONOSCOPY SCREENING] Future Scheduled 2022-06-24 SHINGLES VACCINES (1 Met [facility] Test 17:48:33 of 2) [code = SHINGLES VACCINES (1 of 2)] Future Scheduled 2022-06-24 COVID-19 VACCINE (3 - Me [facility] Test 17:48:33 Booster for Pfizer series) [code = COVID-19 VACCINE (3 - Booster for Pfizer series)] Future Scheduled 2022-06-24 INFLUENZA VACCINE Method [facility] Test 17:48:33 [code = INFLUENZA VACCINE] Diagnostic Test 2022-06-19 CMP, serum or plasma [facility] Pending 00:00:00 [code = CMP, serum or Hospit al Clinics plasma] Diagnostic Test 2022-06-19 CBC w/ auto diff [facility] ommunity Pending 00:00:00 [code = CBC w/ auto Hospital Clinics diff] Diagnostic Test 2022-06-19 ca 125, serum [code = [facility] Pending 00:00:00 ca 125, serum] Hospital Clin ics Diagnostic Test 2022-06-19 urinalysis complete, [facility] Pending 00:00:00 reflex culture [code Hospita l Clinics = urinalysis complete, reflex culture] Diagnostic Test 2022-06-19 C diff toxin A+B, [facility] Pending 00:00:00 qualitative, stool Hospital Clinics [code = C diff toxin A+B, qualitative, stool] Diagnostic Test 2022-06-19 O&P (ova & [place] [facility] Pending 00:00:00 parasites), stool [facility] [code = O&P (ova & parasites), stool] Diagnostic Test 2022-06-19 culture, stool [code Swejaycee davis [facility] Pending 00:00:00 = culture, stool] [facility] Encounters Start End Encounter Admission Attending Care Care Encounter Source Date/Time Date/Time Type Type Clinicians Facility Department ID 2022-06-19 2022-06-19 Outpatient KEAVERY_Juan Carlos [facility] [id number] 0220 [place] 00:00:00 00:00:00 914 Commun i ty [facility] 2022-06-19 2022-06-19 Dori Lopez [facility] [place] 00:00:00 00:00:00 Aroldo Hussein MD: [address] [facility] Hospit a [address], COMMUNITY l [address], [facility], [address] ELIZABETH , Ph. 2022-06-19 2022-06-19 Outpatient Dori Hussein [facility] [id number] 00:00:00 00:00:00 Jessica [id number] 2022-06-12 2022-06-12 Outpatient CINDYAVERY_Juan Carlos [facility] [id number] 0220 [place] 00:00:00 00:00:00 907 Commun i ty Hospita l Clinics 2022-05-29 2022-05-29 Outpatient KEFFER_Juan Carlos [facility] [id number] 0220 [place] 00:00:00 00:00:00 824 Commun i ty Hospita l Clinics 2022-05-29 2022-05-29 Dori Lopez [facility] [place] [facility] [place] 824 [place] 00:00:00 00:00:00 Aroldo Hussein MD: [address] [facility] Hospit a [address], COMMUNITY l [address], [place], [place] CLINIC, [address] ELIZABETH , Ph. 2022-05-29 2022-05-29 Outpatient Dori Hussein [facility] [id number] 00:00:00 00:00:00 Jessica [id number] 2022-05-22 2022-05-22 Office Josiane 2.840.1 [id number] [facility] 14:00:00 15:02:07 Visit Tee 19658.1.[address] 3.430.2.7 Hospit a .3.182455 l .8 2022-05-22 2022-05-22 Outpatient JOSIANE [facility] [id number] [place] 00:00:00 00:00:00 TEE [address] 2022-05-22 2022-05-22 Travel 1.2.840.1 [id number] [id number] [facility]i 00:00:00 00:00:[address] 3.430.2.7 0.2.7.3.698 Ho spita .3.945807 084.8 l .8 2022-05-16 2022-05-16 Outpatient CINDYAVERY_A [facility] [id number] 0 [place] 00:00:00 00:00:00 811 Commun i ty Hospita l Clinics 2022-02-28 2022-02-28 Outpatient ELIZABETH_A [facility] [id number] 0 [place] 11:54:00 11:54:00 526 Commun i ty Hospita l Clinics 2022-02-28 2022-02-28 Dori Lopez [facility] [place]6 [place] 00:00:00 00:00:00 Aroldo Hussein MD: [address] [facility] DIANA Adams Hospit a [address], COMMUNITY l [address], HOSPITAL [place], [place] CLINIC, [address] ELIZABETH , Ph. 2022-02-28 2022-02-28 Outpatient Dori Hussein [facility] [id number] 00:00:00 00:00:00 Jessica [id number] [facility] 2021-12-17 2021-12-17 Outpatient Champion_P [facility] [id number] [place] 11:58:00 11:58:00 [facility] 2021-12-17 2021-12-17 Outpatient Champion_P [facility] [address] [place] 11:58:00 11:58:00 [facility] 2021-12-13 2021-12-13 Outpatient Champion_P [facility] [address] [place] 05:03:00 05:03:00 [facility] 2021-12-13 2021-12-13 Outpatient ELIZABETH_Juan Carlos [facility] [id number] 0 [place] 02:10:00 02:10:00 310 Commun i ty Hospita [facility] 2021-12-13 2021-12-13 Dori Lopez [facility] 310 [place] 00:00:00 00:00:00 Aroldo Hussein MD: [address] [facility] [address] l [address], HOSPITAL [facility], [address] ELIZABETH , Ph. 2021-12-13 2021-12-13 Outpatient Dori Hussein [facility] [id number] 00:00:00 00:00:00 Jessica [id number] 2021-12-07 2021-12-07 Outpatient Champion_P [facility] [id number] [place] 01:04:00 01:04:00 [facility] 2021-11-28 2021-11-28 Outpatient Bony BRONSON [facility] OPH [id number] Univers 08:00:00 11:05:00 WM [facility] 2021-11-28 2021-11-28 [facility] [id number] Univers 08:00:00 11:05:00 Encounter Wm CHAKRABORTY 350.1.13.10 [place] [id number] [facility] 071 Branch 2021-11-28 2021-11-28 Surgery Kaden [facility] 1.2.840.114 [id number] Univers 09:34:00 10:14:00 Wm CHAKRABORTY 350.1.13.10 [place] [id number] [facility] 020 Branch 2021-11-26 2021-11-26 Laboratory Only, Adc Test [facility] 1.2.840. 114 [id number] Univers 11:45:00 12:00:00 Only Wm Bronson 350.1.13.1 0 [place] C[place] [id number] [facility] 353 Branch 2021-11-26 2021-11-26 Outpatient Bony BRONSON [facility] [id number] Univers 11:45:00 11:45:00 WM wharton [facility] 2021-11-22 2021-11-22 Outpatient DIDI [facility] [id number] 0 [place] 11:01:00 11:01:00 217 [facility] i ty Hospita l [facility] 2021-11-22 2021-11-22 Dori Lopez [facility] [place] [facility] [place] 217 [place] 00:00:00 00:00:00 Aroldo Hussein MD: [address] [facility] Hospit a [address], [facility] l [address], HOSPITAL Clinic s [place], [address] ELIZABETH , Ph. 2021-11-22 2021-11-22 Outpatient Dori Hussein [facility] [id number] 00:00:00 00:00:00 Jessica [id number] 2021-10-11 2021-10-11 Outpatient DIDI [facility] [id number] 0220 [place] 04:19:00 04:19:00 106 Commun i ty Hospita l Clinics 2021-10-11 2021-10-11 Dori Lopez [facility] [place] [facility] [place] 106 [place] 00:00:00 00:00:00 Aroldo Hussein MD: [address] [facility] - ty DIANA [facility] Hospit a [address], COMMUNITY l [address], HOSPITAL Clinic s [place], [address] ELIZABETH , Ph. 2021-10-11 2021-10-11 Outpatient Dori Hussein [facility] [id number] [id number] 00:00:00 00:00:00 Jessica [id number] 2021-09-26 2021-09-26 Hospital [facility] [id number] Univers 07:23:00 09:32:00 Encounter Wm CHAKRABORTY 350.1.13.10 [place] [id number] [facility] 071 Branch 2021-09-26 2021-09-[address] [facility] OPH [id number] Univers 07:23:00 09:32:00 WM ity of [facility] 2021-09-26 2021-09-26 Surgery [facility] 1.2.840.114 [id number] Univers 08:11:00 08:52:00 Wm CHAKRABORTY 350.1.13.10 [place] [id number] [facility] 020 Branch 2021-09-26 2021-09-26 Orders Doctor LOURDES 1.2.840.114 [id number] Univers 00:00:00 00:00:00 Only Unassigned, ДМИТРИЙ 350.1.13.10 ity of [place] [facility] 4.2.7.2.686 Surjit as [id number] [facility] 009 Branch 2021-09-17 2021-09-17 Water Plant Operator Julieth, Adc Lab Main [facility] 1.2.8 40.114 [id number] Univers 16:49:29 17:04:29 Visit Kaden, Wm CHAKRABORTY 350.1.13.1 0 [place] 4.2.7.2.686 Dorothy [place] [id number] [address] 2021-09-17 2021-09-17 Outpatient Bony BRONSON [facility] [id number] Univers 17:00:00 17:00:00 WM odonnellany [facility] 2021-07-12 2021-07-12 Outpatient KEFFER_A [facility] [id number] 0211 [place] 02:15:00 02:15:00 007 Commun i ty Hospita l Clinics 2021-05-29 2021-05-29 Outpatient KEAVERY_A [facility] [id number] 0210 [place] 01:57:00 01:57:00 824 Commun i ty Hospita l Clinics 2021-04-30 2021-04-30 Outpatient KEFFER_A [facility] [id number] 0210 [place] 03:59:00 03:59:00 726 Commun i ty Hospita l Clinics 2021-03-12 2021-03-12 Outpatient KEFFER_A [facility] [id number] 0210 [place] 10:04:00 10:04:00 607 Commun i ty Hospita l Clinics 2021-03-01 2021-03-01 Outpatient KEFFER_A [facility] [id number] 0210 [place] 01:43:00 01:43:00 527 Commun i ty Hospita l Clinics 2021-03-01 2021-03-01 Dori Lopez [facility] [place] [facility] [place] 527 [place] 00:00:00 00:00:00 Aroldo Hussein MD: [address] [facility] Hospit a [address], COMMUNITY l [address], HOSPITAL Clinic s [place], [address] ELIZABETH , Ph. 2021-03-01 2021-03-01 Outpatient Dori Hussein [facility] [id number] 00:00:00 00:00:00 Jessica [id number] 2021-01-01 2021-01-01 Outpatient ELIZABETH_Juan Carlos [facility] [id number] 0210 [place] 09:28:00 09:28:00 329 Commun i ty Hospita l Clinics 2021-01-01 2021-01-01 Dori Lopez [facility] [place] [facility] [place] 329 [place] 00:00:00 00:00:00 Aroldo Hussein MD: [address] [facility] [address] COMMUNITY l [address], [place], [place], [address] ELIZABETH , Ph. 2021-01-01 2021-01-01 Outpatient Dori Hussein [facility] [id number] 00:00:00 00:00:00 Jessica [id number] 2020-12-06 2020-12-06 Outpatient ELIZABETH_Juan Carlos [facility] [id number] 0210 [place] 02:53:00 02:53:00 303 Commun i ty Hospita l [facility] 2020-12-06 2020-12-06 Outpatient Dori Hussein [facility] [id number] 00:00:00 00:00:00 Jessica [id number] 2020-12-06 2020-12-06 Dori Lopez [facility] 303 [place] 00:00:00 00:00:00 Aroldo Hussein MD: [address] [facility] [address], COMMUNITY l [address], [place], [place], [address] ELIZABETH , Ph. 2020-11-08 2020-11-08 Outpatient ELIZABETH_Juan Carlos [facility] [id number] 0210 [place] 05:38:00 05:38:00 203 Commun i ty Hospita l Clinics 2020-11-08 2020-11-08 Outpatient ELIZABETH_Juan Carlos [facility] [id number] 0210 [place] 05:38:00 05:38:00 228 Commun i ty Hospita l Clinics 2020-11-08 2020-11-08 Outpatient Dori Hussein [facility] [id number] [id number] 00:00:00 00:00:00 Jessica [id number] 2020-11-08 2020-11-08 Dori Lopez [facility] [place] [facility] [place] 203 [place] 00:00:00 00:00:00 Aroldo Hussein MD: [address] [facility] Hospit a [address], [facility] l [address], HOSPITAL [facility], [address] ELIZABETH , Ph. 2020-10-18 2020-10-18 Outpatient ELIZABETH_Juan Carlos [facility] [id number] 209 [place] 05:32:00 05:32:00 113 [facility] hospital l [facility] 2020-10-18 2020-10-18 Outpatient Dori Hussein [facility] [id number] 00:00:00 00:00:00 Jessica [id number] 2020-10-18 2020-10-18 Dori Lopez [facility] [place] [facility] [place] 113 [place] 00:00:00 00:00:00 Aroldo Hussein MD: [address] [facility] a [address], [facility] l [address], HOSPITAL [place], [place] CLINIC, [address] ELIZABETH , Ph. 2020-08-23 2020-08-23 Outpatient elizabeth_juan carlos [facility] 2019 [place] 02:32:00 02:32:00 1118 [facility] Results Test Description Test Time Test Comments Results Result Comments Source SARS-CoV-2 (COVID-19) IgG Ab [Presence] in Serum or Pl asma by 2021-12-05 00:00:00 Immunoassay Test Item Value Reference Range Interpretation Comme nts SARS-CoV-2 (COVID-19) IgG Ab >800.0 See_Comment [Automated message] The system [Units/volume] in Serum or w [facility] generated this result Plasma by Immunoassay (test transmitted reference range: neg code = 75725-6) <13.0. The r eference range was not used to int erpret this result as eliazar l/abnormal. SARS-CoV-2 (COVID-19) Ab positive [Interpretation] in Serum or Plasma (test code = 71924-0) [facility] [Mass/volume] in Serum or Plasma 2021-12-04 00:00:00 Test Item Value Reference Range Interpretation Comments Ferritin [Mass/volume] in Serum or 154 NG/mL 15-150 H Plasma (test code = 2276-4) [facility]vinewritten [id number] 00:00:00 Test Item Value Reference Range Interpretation Comments written authorization (test code = comment written authorization) [facility] W Differential panel, method unspecified - [id number] 00:00:00 Test Item Value Reference Range Interpretation Comments Leukocytes [#/volume] in Blood 6.2 x10e3/uL 3.4-10.8 by Automated count (test code = 6690-2) Erythrocytes [#/volume] in 5.60 x10e6/uL 3.77-5.28 H Blood by Automated count (test code = 789-8) Hemoglobin [Mass/volume] in 17.4 g/dL 11.1-15.9 H Blood (test code = 718-7) Hematocrit [Volume Fraction] of 52.2 % 34.0-46.6 H Blood by Automated count (test code = 4544-3) Erythrocyte mean corpuscular 93 fL 79-97 volume [Entitic volume] by Automated count (test code = 787-2) MCH [Entitic mass] by Automated 31.1 pg 26.6-33.0 count (test code = 785-6) Erythrocyte mean corpuscular 33.3 g/dL 31.5-35.7 hemoglobin concentration [Mass/volume] by Automated count (test code = 786-4) Erythrocyte distribution width 11.9 % 11.7-15.4 [Ratio] by Automated count (test code = 788-0) Platelets [#/volume] in Blood 219 x10e3/uL 150-450 by Automated count (test code = 777-3) Neutrophils/100 leukocytes in 51 % not estab. Blood by Automated count (test code = 770-8) Lymphocytes/100 leukocytes in 40 % not estab. Blood by Automated count (test code = 736-9) Monocytes/100 leukocytes in 7 % not estab. Blood by Automated count (test code = 5905-5) Eosinophils/100 leukocytes in 1 % not estab. Blood by Automated count (test code = 713-8) Basophils/100 leukocytes in 1 % not estab. Blood by Automated count (test code = 706-2) immature cells (test code = insurance territory manager immature cells) Neutrophils [#/volume] in Blood 3.1 x10e3/uL 1.4-7.0 by Automated count (test code = 751-8) Lymphocytes [#/volume] in Blood 2.5 x10e3/uL 0.7-3.1 by Automated count (test code = 731-0) Monocytes [#/volume] in Blood 0.5 x10e3/uL 0.1-0.9 by Automated count (test code = 742-7) Eosinophils [#/volume] in Blood 0.1 x10e3/uL 0.0-0.4 by Automated count (test code = 711-2) Basophils [#/volume] in Blood 0.0 x10e3/uL 0.0-0.2 by Automated count (test code = 704-7) Immature granulocytes/100 0 % not estab. leukocytes in Blood by Automated count (test code = 98581-0) Immature granulocytes 0.0 x10e3/uL 0.0-0.1 [#/volume] in Blood by Automated count (test code = 77331-4) Nucleated erythrocytes/100 insurance territory manager leukocytes [Ratio] in Blood by Automated count (test code = 89561-6) Morphology [Interpretation] in insurance territory manager Blood Narrative (test code = 27407-1) [facility] 2000 panel - Serum or [id number] 00:00:00 Test Item Value Reference Range Interpretation Comments Glucose [Mass/volume] in 235 mg/dL 65-99 H Serum or Plasma (test code = 2345-7) Urea nitrogen [Mass/volume] 13 mg/dL 6-24 in Serum or Plasma (test code = 3094-0) Creatinine [Mass/volume] in 0.70 mg/dL 0.57-1.00 Serum or Plasma (test code = 2160-0) Glomerular filtration 96 mL/min/1.73 >59 rate/1.73 sq M.predicted among non-blacks [Volume Rate/Area] in Serum, Plasma or Blood by Creatinine-based formula (CKD-EPI) (test code = 69361-7) Glomerular filtration 110 mL/min/1.73 >59 rate/1.73 sq M.predicted among blacks [Volume Rate/Area] in Serum, Plasma or Blood by Creatinine-based formula (CKD-EPI) (test code = 43221-6) Urea nitrogen/Creatinine 19 9-23 [Mass Ratio] in Serum or Plasma (test code = 3097-3) Sodium [Moles/volume] in 139 mmol/L 134-144 Serum or Plasma (test code = 2951-2) Potassium [Moles/volume] in 4.1 mmol/L 3.5-5.2 Serum or Plasma (test code = 2823-3) Chloride [Moles/volume] in 96 mmol/L 96-106 Serum or Plasma (test code = 5-0) Carbon dioxide, total 27 mmol/L 20-29 [Moles/volume] in Serum or Plasma (test code = 2027-9) Calcium [Mass/volume] in 9.9 mg/dL 8.7-10.2 Serum or Plasma (test code = 47343-9) Protein [Mass/volume] in 7.7 g/dL 6.0-8.5 Serum or Plasma (test code = 2885-2) Albumin [Mass/volume] in 4.8 g/dL 3.8-4.9 Serum or Plasma (test code = 1751-7) Globulin [Mass/volume] in 2.9 g/dL 1.5-4.5 Serum by calculation (test code = 77516-2) Albumin/Globulin [Mass Ratio] 1.7 1.2-2.2 in Serum or Plasma (test code = 1759-0) Bilirubin.total [Mass/volume] 1.4 mg/dL 0.0-1.2 H in Serum or Plasma (test code = 1974-2) Alkaline phosphatase 121 IU/L 44-121 [Enzymatic activity/volume] in Serum or Plasma (test code = 6768-6) Aspartate aminotransferase 13 IU/L 0-40 [Enzymatic activity/volume] in Serum or Plasma (test code = 1920-8) Alanine aminotransferase 25 IU/L 0-32 [Enzymatic activity/volume] in Serum or Plasma (test code = 1742-6) [facility] Clinics[facility] W Reflex Culture panel - [id number] 00:00:00 Test Item Value Reference Range Interpretation Comments Specific gravity of Urine by >=1.030 1.005-1.030 A Test strip (test code = 5811-5) pH of Urine by Test strip 6.0 5.0-7.5 (test code = 5803-2) Color of Urine (test code = yellow yellow 5778-6) Appearance of Urine (test clear clear code = 5767-9) Leukocyte esterase [Presence] negative negative in Urine by Test strip (test code = 5799-2) Protein [Presence] in Urine trace negative/trace by Test strip (test code = 98921-4) Glucose [Presence] in Urine 3+ negative A by Test strip (test code = 25104-1) Ketones [Presence] in Urine trace negative A by Test strip (test code = 2514-8) Hemoglobin [Presence] in negative negative Urine by Test strip (test code = 5794-3) Bilirubin.total [Presence] in negative negative Urine by Test strip (test code = 5770-3) Urobilinogen [Mass/volume] in 1.0 mg/dL 0.2-1.0 Urine by Test strip (test code = 35488-5) Nitrite [Presence] in Urine negative negative by Test strip (test code = 5802-4) Microscopic observation see below: [Identifier] in Urine sediment by Light microscopy (test code = 66933-1) Leukocytes [#/area] in Urine 0-5 0-5 sediment by Microscopy high power field (test code = 5821-4) Erythrocytes [#/area] in 3-10 0-2 A Urine sediment by Microscopy high power field (test code = 01395-1) Epithelial cells [#/area] in 0-10 0-10 Urine sediment by Microscopy high power field (test code = 5787-7) Epithelial cells.renal insurance territory manager [#/area] in Urine sediment by Microscopy high power field (test code = 49505-8) Casts [Presence] in Urine none seen none seen sediment by Light microscopy (test code = 96356-6) Casts [Type] in Urine insurance territory manager sediment by Light microscopy (test code = 10815-2) Unidentified crystals present n/a A [Presence] in Urine sediment by Light microscopy (test code = 5783-6) Crystals [type] in Urine calcium oxalate n/a sediment by Light microscopy (test code = 5782-8) Mucus [Presence] in Urine insurance territory manager sediment by Light microscopy (test code = 8247-9) Bacteria [#/area] in Urine none seen none seen/few sediment by Microscopy high power field (test code = 5769-5) Yeast [#/area] in Urine insurance territory manager sediment by Microscopy high power field (test code = 5822-2) Trichomonas vaginalis insurance territory manager [Presence] in Urine sediment by Light microscopy (test code = 5813-1) Urine sediment comments by insurance territory manager Light microscopy Narrative (test code = 90629-0) urinalysis reflex (test code comment = urinalysis reflex) [facility], [id number] 00:00:00 Test Item Value Reference Range Interpretation Comments Cholesterol [Mass/volume] in Serum 161 mg/dL 100-199 or Plasma (test code = 2093-3) Triglyceride [Mass/volume] in Serum 167 mg/dL 0-149 H or Plasma (test code = 2571-8) Cholesterol in HDL [Mass/volume] in 65 mg/dL >39 Serum or Plasma (test code = 2085-9) Cholesterol in VLDL [Mass/volume] 28 mg/dL 5-40 in Serum or Plasma by calculation (test code = 66863-2) Cholesterol in LDL [Mass/volume] in 68 mg/dL 0-99 Serum or Plasma by calculation (test code = 07106-9) Laboratory comment [Text] in Report insurance territory manager Narrative (test code = 42606-4) [facility] + T4, [id number] 00:00:00 Test Item Value Reference Range Interpretation Comments Thyrotropin [Units/volume] in 2.970 uIU/mL 0.450-4.500 Serum or Plasma by Detection limit <= 0.005 mIU/L (test code = 98041-1) Thyroxine (T4) [Mass/volume] in 9.7 ug/dL 4.5-12.0 Serum or Plasma (test code = 3026-2) [facility] [facility] [facility]Hem[facility].total in Blood 2021-11-30 00:00:00 Test Item Value Reference Range Interpretation Comments Hemoglobin A1c/Hemoglobin.total in 9.5 % 4.8-5.6 H Blood (test code = 4548-4) [facility] [place]25-Hydroxyvitamin D3+25-Hydroxyvitamin D2 [Mass/volume] in Serum or [id number] 00:00:00 Test Item Value Reference Range Interpretation Comments 25-Hydroxyvitamin 28.9 NG/mL 30.0-100.0 L D3+25-Hydroxyvitamin D2 [Mass/volume] in Serum or Plasma (test code = 06625-5) [facility] [Mass/volume] in [id number] 00:00:00 Test Item Value Reference Range Interpretation Comments Microalbumin [Mass/volume] in 75.3 ug/mL not estab. Urine (test code = 49645-6) [facility] GLUCOSE (AUTOMATED)2021-11-28 14:11:53 Test Item Value Reference Range Interpretation Comments POCT GLU (test code = 0052235347) 227 mg/dL 70-110 H Lab Interpretation (test code = Abnormal 56495-4) [facility] GLUCOSE (AUTOMATED)2021-11-28 14:11:53 Test Item Value Reference Range Interpretation Comments POCT GLU (test code = 6482144631) 227 mg/dL 70-110 H Lab Interpretation (test code = Abnormal 40781-5) [facility] Ag [Presence] in Respiratory specimen by Rapid [id number] 11:23:00 Test Item Value Reference Range Interpretation Comments SARS CoV 2 (test code = SARS CoV 2) negative [facility] [id number] 13:35:00 Test Item Value Reference Range Interpretation Comments POCT Glu (age>30days) (test code = 160 mg/dL 70-110 A 3342) Lab Interpretation (test code = Abnormal 36167-8) [facility] [id number] 13:35:00 Test Item Value Reference Range Interpretation Comments POCT Glu (age>30days) (test code = 160 mg/dL 70-110 A 3342) Lab Interpretation (test code = Abnormal 99568-9) [facility] GLUCOSE (AUTOMATED)2021-09-26 13:33:41 Test Item Value Reference Range Interpretation Comments POCT GLU (test code = 2149171120) 160 mg/dL 70-110 H Lab Interpretation (test code = Abnormal 05180-0) [facility] GLUCOSE (AUTOMATED)2021-09-26 13:33:41 Test Item Value Reference Range Interpretation Comments POCT GLU (test code = 8941593696) 160 mg/dL 70-110 H Lab Interpretation (test code = Abnormal 30695-9) [facility] T4 and TSH panel - Serum or Plasma 2020-10-19 00:00:00 Test Item Value Reference Range Interpretation Comments Thyrotropin [Units/volume] in 0.042 uIU/mL 0.450-4.500 L Serum or Plasma by Detection limit <= 0.005 mIU/L (test code = 07086-8) Thyroxine (T4) free 1.59 NG/dL 0.82-1.77 [Mass/volume] in Serum or Plasma (test code = 3024-7) [facility] W Auto Differential panel - [id number] 00:00:00 Test Item Value Reference Range Interpretation Comments Leukocytes [#/volume] in Blood 5.3 x10e3/uL 3.4-10.8 by Automated count (test code = 6690-2) Erythrocytes [#/volume] in 4.88 x10e6/uL 3.77-5.28 Blood by Automated count (test code = 789-8) Hemoglobin [Mass/volume] in 16.1 g/dL 11.1-15.9 H Blood (test code = 718-7) Hematocrit [Volume Fraction] of 46.8 % 34.0-46.6 H Blood by Automated count (test code = 4544-3) Erythrocyte mean corpuscular 96 fL 79-97 volume [Entitic volume] by Automated count (test code = 787-2) Erythrocyte mean corpuscular 33.0 pg 26.6-33.0 hemoglobin [Entitic mass] by Automated count (test code = 785-6) Erythrocyte mean corpuscular 34.4 g/dL 31.5-35.7 hemoglobin concentration [Mass/volume] by Automated count (test code = 786-4) Erythrocyte distribution width 12.1 % 11.7-15.4 [Ratio] by Automated count (test code = 788-0) Platelets [#/volume] in Blood 205 x10e3/uL 150-450 by Automated count (test code = 777-3) Neutrophils/100 leukocytes in 53 % not estab. Blood by Automated count (test code = 770-8) Lymphocytes/100 leukocytes in 36 % not estab. Blood by Automated count (test code = 736-9) Monocytes/100 leukocytes in 10 % not estab. Blood by Automated count (test code = 5905-5) Eosinophils/100 leukocytes in 1 % not estab. Blood by Automated count (test code = 713-8) Basophils/100 leukocytes in 0 % not estab. Blood by Automated count (test code = 706-2) immature cells (test code = insurance territory manager immature cells) Neutrophils [#/volume] in Blood 2.8 x10e3/uL 1.4-7.0 by Automated count (test code = 751-8) Lymphocytes [#/volume] in Blood 1.9 x10e3/uL 0.7-3.1 by Automated count (test code = 731-0) Monocytes [#/volume] in Blood 0.5 x10e3/uL 0.1-0.9 by Automated count (test code = 742-7) Eosinophils [#/volume] in Blood 0.1 x10e3/uL 0.0-0.4 by Automated count (test code = 711-2) Basophils [#/volume] in Blood 0.0 x10e3/uL 0.0-0.2 by Automated count (test code = 704-7) Immature granulocytes/100 0 % not estab. leukocytes in Blood by Automated count (test code = 55385-7) Immature granulocytes 0.0 x10e3/uL 0.0-0.1 [#/volume] in Blood by Automated count (test code = 19537-1) Nucleated erythrocytes/100 insurance territory manager leukocytes [Ratio] in Blood by Automated count (test code = 87832-5) Morphology [Interpretation] in insurance territory manager Blood Narrative (test code = 88950-1) [facility] - Serum or [id number] 00:00:00 Test Item Value Reference Range Interpretation Comments Glucose [Mass/volume] in Serum 230 mg/dL 65-99 H or Plasma (test code = 2345-7) Urea nitrogen [Mass/volume] in 14 mg/dL 6-24 Serum or Plasma (test code = 3094-0) Creatinine [Mass/volume] in 1.00 mg/dL 0.57-1.00 Serum or Plasma (test code = 2160-0) Glomerular filtration 63 mL/min/1.73 >59 rate/1.73 sq M.predicted among non-blacks [Volume Rate/Area] in Serum, Plasma or Blood by Creatinine-based formula (CKD-EPI) (test code = 20858-5) Glomerular filtration 72 mL/min/1.73 >59 rate/1.73 sq M.predicted among blacks [Volume Rate/Area] in Serum, Plasma or Blood by Creatinine-based formula (CKD-EPI) (test code = 19675-6) Urea nitrogen/Creatinine [Mass 14 9-23 Ratio] in Serum or Plasma (test code = 3097-3) Sodium [Moles/volume] in Serum 143 mmol/L 134-144 or Plasma (test code = 2951-2) Potassium [Moles/volume] in 4.3 mmol/L 3.5-5.2 Serum or Plasma (test code = 2823-3) Chloride [Moles/volume] in 102 mmol/L 96-106 Serum or Plasma (test code = 2075-0) Carbon dioxide, total 22 mmol/L 20-29 [Moles/volume] in Serum or Plasma (test code = 8-9) Calcium [Mass/volume] in Serum 9.3 mg/dL 8.7-10.2 or Plasma (test code = 33867-1) Protein [Mass/volume] in Serum 7.0 g/dL 6.0-8.5 or Plasma (test code = 2885-2) Albumin [Mass/volume] in Serum 4.3 g/dL 3.8-4.9 or Plasma (test code = 1751-7) Globulin [Mass/volume] in 2.7 g/dL 1.5-4.5 Serum by calculation (test code = 46970-6) Albumin/Globulin [Mass Ratio] 1.6 1.2-2.2 in Serum or Plasma (test code = 1759-0) Bilirubin.total [Mass/volume] 0.6 mg/dL 0.0-1.2 in Serum or Plasma (test code = 1974-2) Alkaline phosphatase 111 IU/L 39-117 [Enzymatic activity/volume] in Serum or Plasma (test code = 6768-6) Aspartate aminotransferase 18 IU/L 0-40 [Enzymatic activity/volume] in Serum or Plasma (test code = 1920-8) Alanine aminotransferase 25 IU/L 0-32 [Enzymatic activity/volume] in Serum or Plasma (test code = 1742-6) [facility]ics[facility] W Reflex Culture panel - [id number] 00:00:00 Test Item Value Reference Range Interpretation Comments Specific gravity of Urine (test >=1.030 1.005-1.030 A code = 2965-2) pH of Urine by Test strip (test 5.5 5.0-7.5 code = 5803-2) Color of Urine (test code = yellow yellow 5778-6) Appearance of Urine (test code = clear clear 5767-9) Leukocyte esterase [Presence] in negative negative Urine by Test strip (test code = 5799-2) Protein [Presence] in Urine by negative negative/trace Test strip (test code = 84666-9) Glucose [Presence] in Urine (test 3+ negative A code = 2349-9) Ketones [Presence] in Urine by negative negative Test strip (test code = 2514-8) Hemoglobin [Presence] in Urine by negative negative Test strip (test code = 5794-3) Bilirubin.total [Presence] in negative negative Urine by Test strip (test code = 5770-3) Urobilinogen [Mass/volume] in 1.0 mg/dL 0.2-1.0 Urine by Test strip (test code = 88940-0) Nitrite [Presence] in Urine by negative negative Test strip (test code = 5802-4) Microscopic observation see below: [Identifier] in Urine sediment by Light microscopy (test code = 84380-5) Leukocytes [#/area] in Urine 0-5 0-5 sediment by Microscopy high power field (test code = 5821-4) Erythrocytes [#/area] in Urine 0-2 0-2 sediment by Microscopy high power field (test code = 89589-8) Epithelial cells [#/area] in Urine 0-10 0-10 sediment by Microscopy high power field (test code = 5787-7) Epithelial cells.renal [#/area] in insurance territory manager Urine sediment by Microscopy high power field (test code = 11804-7) Casts [Presence] in Urine sediment insurance territory manager by Light microscopy (test code = 90589-6) Casts [Type] in Urine sediment by insurance territory manager Light microscopy (test code = 45979-8) Unidentified crystals [Presence] insurance territory manager in Urine sediment by Light microscopy (test code = 5783-6) Crystals [type] in Urine sediment insurance territory manager by Light microscopy (test code = 5782-8) Mucus [Presence] in Urine sediment present not estab. by Light microscopy (test code = 8247-9) Bacteria [#/area] in Urine few none seen/few sediment by Microscopy high power field (test code = 5769-5) Yeast [#/area] in Urine sediment present none seen A by Microscopy high power field (test code = 5822-2) Trichomonas vaginalis [Presence] insurance territory manager in Urine sediment by Light microscopy (test code = 5813-1) Urine sediment comments by Light insurance territory manager microscopy Narrative (test code = 64086-8) urinalysis reflex (test code = comment urinalysis reflex) [facility] - Serum or [id number] 00:00:00 Test Item Value Reference Range Interpretation Comments Cholesterol [Mass/volume] in Serum 148 mg/dL 100-199 or Plasma (test code = 2093-3) Triglyceride [Mass/volume] in Serum 260 mg/dL 0-149 H or Plasma (test code = 2571-8) Cholesterol in HDL [Mass/volume] in 54 mg/dL >39 Serum or Plasma (test code = 2085-9) Cholesterol in VLDL [Mass/volume] 41 mg/dL 5-40 H in Serum or Plasma by calculation (test code = 37558-6) Cholesterol in LDL [Mass/volume] in 53 mg/dL 0-99 Serum or Plasma by calculation (test code = 86171-8) Laboratory comment [Text] in Report insurance territory manager Narrative (test code = 08752-6) [facility]Creat[facility] [Mass Ratio] in Urine 2020-10-19 00:00:00 Test Item Value Reference Range Interpretation Comments Creatinine [Mass/volume] in Urine 65.3 mg/dL not estab. (test code = 2161-8) Microalbumin [Mass/volume] in <3.0 not estab. Urine (test code = 93667-6) Albumin/Creatinine [Mass ratio] in <5 0-29 Urine (test code = 9318-7) [facility]em[facility] A1c/Hemoglobin.total in Blood 2020-10-19 00:00:00 Test Item Value Reference Range Interpretation Comments Hemoglobin A1c/Hemoglobin.total in 7.5 % 4.8-5.6 H Blood (test code = 4548-4) [facility] [place]25-Hydroxyvitamin D3+25-Hydroxyvitamin D2 [Mass/volume] in Serum or [id number] 00:00:00 Test Item Value Reference Range Interpretation Comments 25-Hydroxyvitamin 32.5 NG/mL 30.0-100.0 D3+25-Hydroxyvitamin D2 [Mass/volume] in Serum or Plasma (test code = 05471-0) [facility]osphate [Mass/volume] in Serum or Plasma 2020-10-19 00:00:00 Test Item Value Reference Range Interpretation Comments Phosphate [Mass/volume] in Serum or 4.2 mg/dL 3.0-4.3 Plasma (test code = 2777-1) [facility] 1999 panel - Serum or [id number] 00:00:00 Test Item Value Reference Range Interpretation Comments ambig abbrev CMP14 default (test code comment = ambashley abbrev CMP14 default) [facility]vine[facility]esium [Mass/volume] in Serum or Plasma 2020-10-19 00:00:00 Test Item Value Reference Range Interpretation Comments Magnesium [Mass/volume] in Serum or 2.2 mg/dL 1.6-2.3 Plasma (test code = 74206-6) [facility] panel - Serum or [id number] 00:00:00 Test Item Value Reference Range Interpretation Comments ambig abbrev LP default (test code = comment ambig abbrev LP default) [facility] [place]
[2022-07-26] MEDS ORDERED: MORPHINE 4 MG/ML SYR ONE (01:42)
[2022-07-26] MEDS ORDERED: ONDANSETRON 4 MG/2 ML VIAL ONE (01:42)
[2022-07-26] MEDS ORDERED: NA CHLORIDE 0.9% 500 ML ONE (01:42)
[2022-07-26 02:08] LABS: Absolute Lymphocytes (CBC) 1.4 K/uL (0.7-4.9); Hematocrit 48.3 % (36.0-45.0); Lymphocytes % 34.3 % (15.3-44.8); MCV 98.1 fL (80-100); MPV 7.6 fL (7.6-11.3); RBC Red Blood Cell Count 4.93 M/uL (3.86-4.86)
[2022-07-26 02:29] LABS: Albumin 3.4 g/dL (3.4-5.0); Bilirubin Total 0.5 mg/dL (0.2-1.0); Protein, Total 7.4 g/dL (6.4-8.2); Troponin High Sensitivity 5.8 pg/mL (<58.9)
[2022-07-26 02:47] LABS: Urine Blood Negative (Negative); Urine Glucose 3+ (Negative); Urine Protein Negative (Negative); Urine pH 6.5 (5.0-7.0)
[2022-07-26 03:48] LABS: Urine RBC <5 /HPF (None Seen)
--- NOTE | 2022-07-26 04:19 | ER ---
Nurse's Notes [facility] Name: Cierra Sánchez Age: 56 yrs Sex: Female : 1965 Arrival Date: 07/26/2022 Time: 00:24 Bed 5 Private MD: Diagnosis: Constipation;Abdominal pain, Generalized Presentation: 07/26 01:16 Chief complaint: Patient states: she is having abdominal pain off and on "for a while" bb saw her PCP was given something for constipation but it is not working and symptoms are worsening she also had a fall injury in March with broken ribs and is concerned it may be related. Coronavirus screen: At this time, the client does not indicate any symptoms associated with coronavirus-19. Ebola Screen: No symptoms or risks identified at this time. Initial Sepsis Screen: Does the patient meet any 2 criteria? No. Patient's initial sepsis screen is negative. Does the patient have a suspected source of infection? No. Patient's initial sepsis screen is negative. Risk Assessment: Do you want to hurt yourself or someone else? Patient reports no desire to harm self or others. Onset of symptoms is unknown. 01:16 Method Of Arrival: Ambulatory bb 01:16 Acuity: EMI 3 bb Historical: - Allergies: 01:18 No Known Allergies; bb - Immunization history:: Pfizer x 2. - Social history:: Smoking status: Patient denies any tobacco usage or history of. Screenin:12 Abuse screen: Denies threats or abuse. Denies injuries from another. Nutritional ha1 screening: No deficits noted. Tuberculosis screening: No symptoms or risk factors identified. Fall Risk None identified. Assessment: 01:34 General: Appears uncomfortable, Behavior is cooperative. Pain: Complains of pain in ha1 abdominal pain Pain does not radiate. Pain currently is 9 out of 10 on a pain scale. Quality of pain is described as crampy. Neuro: Level of Consciousness is awake, alert, Oriented to person, place, time, situation. Cardiovascular: Patient's skin is warm and dry. Respiratory: Airway is patent Trachea midline Respiratory effort is even, unlabored, Respiratory pattern is regular, symmetrical. GI: Bowel sounds present X 4 quads. Abd is soft and non tender X 4 quads. 02:30 Reassessment: Patient and/or family updated on plan of care and expected duration. Pain ha1 level reassessed. Patient is alert, oriented x 3, equal unlabored respirations, skin warm/dry/pink. 03:40 Reassessment: Patient and/or family updated on plan of care and expected duration. Pain ha1 level reassessed. Patient is alert, oriented x 3, equal unlabored respirations, skin warm/dry/pink. Vital Signs: 01:16 BP 125 / 85; Pulse 87; Resp 18 S; Temp 99(O); Pulse Ox 99% on R/A; Weight 108.86 kg bb (R); Height 5 ft. 8 in. (172.72 cm) (R); Pain 4/10; 01:50 BP 125 / 85; Pulse 87; Resp 18; Pulse Ox 99% on R/A; ha1 02:50 BP 128 / 77; Pulse 81; Resp 17 S; Pulse Ox 98% on R/A; ha1 03:40 BP 110 / 67; Pulse 77; Resp 17 S; Pulse Ox 98% on R/A; ha1 04:30 BP 115 / 73; Pulse 80; Resp 17 S; Pulse Ox 98% on R/A; ha1 01:16 Body Mass Index 36.49 (108.86 kg, 172.72 cm) bb ED Course: 00:24 Patient arrived in ED. bp1 00:58 Nicole Maradiaga MD is Attending Physician. sd2 01:18 Triage completed. bb 01:18 Arm band placed on Patient placed in an exam room, on a stretcher, on pulse oximetry. bb Family accompanied patient. 01:33 Alisson Farmer RN is Primary Nurse. ha1 01:56 Inserted saline lock: 20 gauge in right forearm, using aseptic technique. Blood ds4 collected. 03:21 CT Abd/Pelvis - IV Contrast Only In Process Unspecified. EDMS 04:55 No provider procedures requiring assistance completed. IV discontinued, intact, ha1 bleeding controlled, No redness/swelling at site. Pressure dressing applied. 04:56 Patient has correct armband on for positive identification. Placed in gown. Bed in low ha1 position. Call light in reach. Side rails up X 1. Administered Medications: 01:50 Drug: NS 0.9% 500 ml Route: IV; Rate: bolus; Site: right forearm; ha1 04:14 Follow up: Response: No adverse reaction; IV Status: Completed infusion; IV Intake: ha1 500ml 01:52 Drug: morphine 4 mg Route: IVP; Infused Over: 4 mins; Site: right forearm; ha1 02:25 Follow up: Response: No adverse reaction; Pain is decreased; RASS: Alert and Calm (0) ha1 01:56 Drug: Zofran (Ondansetron) 4 mg Route: IVP; Site: right forearm; ha1 02:25 Follow up: Response: No adverse reaction ha1 04:40 Drug: Lactulose 20 grams Volume: 30 ml; Route: PO; ha1 04:53 Follow up: Response: No adverse reaction ha1 Medication: 04:56 VIS not applicable for this client. ha1 Intake: 04:14 IV: 500ml; Total: 500ml. ha1 Outcome: 04:18 Discharge ordered by . sd2 04:55 Discharged to home ambulatory, with family. ha1 04:55 Condition: stable 04:55 Discharge instructions given to patient, family, Instructed on discharge instructions, follow up and referral plans. the need for admit, Demonstrated understanding of instructions, follow-up care, medications, Prescriptions given X 1. 04:56 Patient left the ED. ha1 Signatures: Dispatcher [employer] EDMS Geno Soares RN RN bb Swanson, Donovan ds4 Whitney Ramos Stephanie, MD MD sd2 Alisson Farmer RN RN ha1
--- NOTE | 2022-07-26 04:19 | EDPHYS ---
Physician Documentation [facility] Name: Cierra Sánchez Age: 56 yrs Sex: Female : 1965 Arrival Date: 07/26/2022 Time: 00:24 Bed 5 Private MD: ED Physician Nicole Maradiaga HPI: 07/26 01:34 This 56 yrs old Female presents to ER via Ambulatory with complaints of Abdominal Pain, sd2 Constipation. 01:34 56-year-old female presents with chief complaint of right-sided abdominal pain. She sd2 reports she had similar issues approximately 3 to 4 weeks ago and had a CT scan at that time that showed constipation. She was given "the bomb" with improvement of her symptoms. She reports she never quite made it completely back to normal with her bowel movements and has only had little amounts of output. Her last bowel movement was approximately 2 days ago and it was a very small amount. The patient reports she tried taking some [id number] medications recommended to her by her primary care doctor this evening around 5 PM and since then her pain has progressively worsened. She denies any known fevers, chest pain, shortness of breath, vomiting or diarrhea. She does endorse nausea.. Historical: - Allergies: 01:18 No Known Allergies; bb - Immunization history:: Pfizer x 2. - Social history:: Smoking status: Patient denies any tobacco usage or history of. ROS: 01:34 Constitutional: Negative for fever, chills, and weight loss, Eyes: Negative for injury, sd2 pain, redness, and discharge, Cardiovascular: Negative for chest pain, palpitations, and edema, Respiratory: Negative for shortness of breath, cough, wheezing. 01:34 : Negative for dysuria, urinary frequency, hesitancy, urgency and hematuria. MS/Extremity: Negative for injury and deformity, Skin: Negative for injury, rash, and discoloration, Neuro: Negative for headache, numbness and tingling. 01:34 Abdomen/GI: Positive for abdominal pain, nausea, Negative for vomiting, diarrhea. Exam: 01:34 Constitutional: This is a well developed, well nourished patient who is awake, alert, sd2 and in no acute distress. Head/Face: Normocephalic, atraumatic. Eyes: EOMI, normal conjunctiva bilaterally Chest/axilla: Normal chest wall appearance and motion. Nontender with no deformity. Cardiovascular: Regular rate and rhythm with a normal S1 and S2. No gallops, murmurs, or rubs. 2+ distal pulses. Respiratory: Lungs have equal breath sounds bilaterally, clear to auscultation and percussion. No rales, rhonchi or wheezes noted. No increased work of breathing, no retractions or nasal flaring. Abdomen/GI: soft, ND, generalized TTP most prominent to the RUQ/RLQ, no rebound or guarding Skin: Warm, dry with normal turgor. Normal color with no rashes, no lesions, and no evidence of cellulitis. MS/ Extremity: Pulses equal, no cyanosis. Neurovascular intact. Full, normal range of motion. Ambulatory without difficulty. Psych: Awake, alert, with orientation to person, place and time. Behavior, mood, and affect are within normal limits. 02:48 ECG was reviewed by the Attending Physician. NSR, rate 82, no STEMI criteria sd2 Vital Signs: 01:16 BP 125 / 85; Pulse 87; Resp 18 S; Temp 99(O); Pulse Ox 99% on R/A; Weight 108.86 kg bb (R); Height 5 ft. 8 in. (172.72 cm) (R); Pain 4/10; 01:50 BP 125 / 85; Pulse 87; Resp 18; Pulse Ox 99% on R/A; ha1 02:50 BP 128 / 77; Pulse 81; Resp 17 S; Pulse Ox 98% on R/A; ha1 03:40 BP 110 / 67; Pulse 77; Resp 17 S; Pulse Ox 98% on R/A; ha1 04:30 BP 115 / 73; Pulse 80; Resp 17 S; Pulse Ox 98% on R/A; ha1 01:16 Body Mass Index 36.49 (108.86 kg, 172.72 cm) MDM: 00:58 Patient medically screened. sd2 01:34 Differential Diagnosis Gastritis, cholecystitis, pancreatitis, SBO, diverticulitis, sd2 kidney stone, appendicitis, UTI, dehydration, electrolyte abnormality among others. Data reviewed: vital signs, nurses notes. 04:16 Data reviewed: lab test result(s), EKG, radiologic studies. Counseling: I had a sd2 detailed discussion with the patient and/or guardian regarding: the historical points, exam findings, and any diagnostic results supporting the discharge/admit diagnosis, lab results, radiology results, the need for outpatient follow up, to return to the emergency department if symptoms worsen or persist or if there are any questions or concerns that arise at home. Medical screen evaluation completed. [facility] emergency medical condition absent. ED course: Labs and imaging reviewed. Labs grossly WNCL. Trop neg. EKG with no ischemic changes. UA without infection. CTAP with no acute process but stool throughout the sigmoid colon. Suspect constipation once again as underlying etiology as it was 3-4 weeks ago per patient report. Pt has already been on a bowel regimen and taking "the bomb" at home. She is requesting something stronger. We discussed options for both lactulose and Golytely. Pt would prefer Golytely and will continue to aggressively hydrate while using the medication. To follow up with PCP. Verbalizes understanding of discharge plan and strict return precautions.. 07/26 01:34 Order name: CBC with Diff; Complete Time: 02:51 sd2 07/26 01:34 Order name: CMP; Complete Time: 02:51 sd2 07/26 01:34 Order name: Lipase; Complete Time: 02:51 sd2 07/26 01:34 Order name: Troponin High Sensitivity; Complete Time: 02:51 sd2 07/26 01:34 Order name: Urine Microscopic Only; Complete Time: 03:57 sd2 07/26 02:47 Order name: Urine Dipstick-Ancillary; Complete Time: 02:51 EDMS 07/26 01:34 Order name: EKG - Nurse/Tech; Complete Time: 01:56 sd2 07/26 01:34 Order name: Urine Dipstick-Ancillary (obtain specimen); Complete Time: 02:47 sd2 07/26 01:34 Order name: CT Abd/Pelvis - IV Contrast Only sd2 Administered Medications: 01:50 Drug: NS 0.9% 500 ml Route: IV; Rate: bolus; Site: right forearm; ha1 04:14 Follow up: Response: No adverse reaction; IV Status: Completed infusion; IV Intake: ha1 500ml 01:52 Drug: morphine 4 mg Route: IVP; Infused Over: 4 mins; Site: right forearm; ha1 02:25 Follow up: Response: No adverse reaction; Pain is decreased; RASS: Alert and Calm (0) ha1 01:56 Drug: Zofran (Ondansetron) 4 mg Route: IVP; Site: right forearm; ha1 02:25 Follow up: Response: No adverse reaction ha1 04:40 Drug: Lactulose 20 grams Volume: 30 ml; Route: PO; ha1 04:53 Follow up: Response: No adverse reaction ha1 Disposition Summary: 07/26/22 04:18 Discharge Ordered Location: Home sd2 Problem: an ongoing problem sd2 Symptoms: have improved sd2 Condition: Stable sd2 Diagnosis - Constipation sd2 - Abdominal pain, Generalized sd2 Followup: sd2 - With: Private Physician - When: 2 - 3 days - Reason: Recheck today's complaints, Continuance of care, Re-evaluation by your physician Discharge Instructions: - Discharge Summary Sheet sd2 - Constipation, Adult sd2 Forms: - Medication Reconciliation Form sd2 - Thank You Letter sd2 - Antibiotic Education sd2 - Prescription Opioid Use sd2 Prescriptions: - Golytely - take 240 milliliter by ORAL route as directed for 1 day 240 mL (8 oz) every 10 sd2 minutes until 4 L are consumed or the rectal effluent is clear; 4000 milliliter; Refills: 0, Product Selection Permitted Signatures: Dispatcher [employer] Geno Garibay RN RN Nicole Maradiaga MD MD sd2 Alisson Farmer RN RN ha1
[2022-07-26] MEDS ORDERED: LACTULOSE 20 GM/30 ML UCUP ONE (04:43)
[2022-07-26 05:06] VITALS: TEMP 99
[2022-07-26 05:07] VITALS: O2SAT 98
[2022-07-26 05:10] VITALS: BP 115/73
--- NOTE | 2022-07-26 12:12 | RAD REPORT ---
EXAM DESCRIPTION: CT Abdomen and Pelvis With Intravenous Contrast CLINICAL HISTORY: The patient is 56 years old and is Female; ABDOMINAL PAIN, CONSTIPATION TECHNIQUE: Axial computed tomography images of the abdomen and pelvis with intravenous contrast. S agittal and coronal reformatted images were created and reviewed. This CT exam was performed using one or more of the following dose reduction techniques: automated exposure control, adjustment of t he mA and/or kV according to patient size, and/or use of iterative reconstruction technique. COMPARISON: June 24, 2022. FINDINGS: Lung bases: Unremarkable. No mass. No consolidation. ABDOMEN: Liver: Unremarkable. No mass. Gallbladder and bile ducts: Gallbladder is surgically absent. No ductal dilation. Pancreas: Unremarkable. No mass. No ductal dilation. Spleen: Unremarkable. No splenomegaly. Adrenals: Unremarkable. No mass. Kidneys and ureters: 3.8 cm exophytic simple cyst involving the upper left kidney. ACR [place] guidelines (Herpaula, et al. JACR 2018; 15(2):264-273) suggest no follow-up is necessary. Mild bilateral perinephric stranding. No hydronephrosis. Stomach and bowel: Stool throughout the sigmoid colon. The proximal and transverse colon are mildly distended with air-fluid levels in the colon whi ch can be seen with diarrhea. Postsurgical changes in the stomach. No mucosal thickening. PELVIS: Appendix: No findings to suggest acute appendicitis. Bladder: Unremarkable. Reproductive: Unremarkable as visualized. ABDOMEN and PELVIS: Intraperitoneal space: Unremarkable. No free air. No significant fluid collection. Bones/joints: No acute fracture. No dislocation. Soft tissues: Unremarkable. Vasculature: Unremarkable. No abdominal aortic aneurysm. Lymph nodes: Unremarkable. No enlarged lymph nodes. IMPRESSION: 1. Stool throughout the sigmoid colon. 2. The proximal and transverse colon are mildly distended with air-fluid levels in the colon which can be seen with diarrhea. 3. Additional non-emergent findings as above. Electronically signed by: Aguila Meyer MD 07/26/2022 3:58 AM CDT Due to temporary technical issues with the PACS/Fluency reporting system, reports are being signed by the in house radiologists without review as a courtesy to insure prompt reporting. The interpreting radiologist is fully responsible for the content of the report.
--- NOTE | 2022-07-27 16:55 | EKG ---
Test Date: 2022-07-26 Test Time: 01:49:38 Lithographic Platemaker: ARIELLA MEASUREMENT RESULTS: Intervals: Rate: 82 [place]: 162 QRSD: 96 QT: 398 QTc: 464 [place]: P: 54 [place]: 162 QRS: 82 T: 75 INTERPRETIVE STATEMENTS: Normal sinus rhythm Normal ECG Compared to ECG 08/01/2020 16:18:26 Sinus tachycardia no longer present ST (T wave) deviation no longer present Electronically Signed On 07-27-22 16:53:41 CDT by Wilmar Forde
== END 2022-07-26 04:56 | disposition home or self-care (01) ==
LOC: ER 00:21
DX: K59.00 Constipation, unspecified (principal); R10.84 Generalized abdominal pain
CPT/HCPCS: 96361; 93005; 85025; 36415; 84484; 83690; 80053; 74177; 96375; 96374; 99284; Q9967; J7040; J2405; 81003; 81015

== ENCOUNTER 2024-08-29 17:52 | Emergency (ER) | payer BC ==
[2024-08-29 19:25] LABS: Absolute Lymphocytes (CBC) 0.2 K/uL (0.7-4.9); Absolute Monocytes 0.3 K/uL (0.1-1.3); Absolute Neutrophil 8.9 K/uL (1.8-8.0); Basophils % 0.1 % (0-1.3); Eosinophils % 0.2 % (0-4.4); Hematocrit 51.4 % (36.0-45.0); Lymphocytes % 2.2 % (15.3-44.8); MCH 32.5 pg (27.0-35.0); MCHC 33.1 g/dL (32.0-36.0); MCV 98.3 fL (80-100); MPV 7.8 fL (7.6-11.3); Monocytes % 2.7 % (3.3-12.3); Neutrophils % 94.8 % (41.7-73.7); Platelets 191 thou/uL (152-406); RBC Red Blood Cell Count 5.23 M/uL (3.86-4.86); Red Cell Distribution Width 12.7 % (12.1-15.2)
[2024-08-29] MEDS ORDERED: ONDANSETRON 4 MG/2 ML VIAL ONE (19:36)
[2024-08-29 19:41] LABS: Albumin 3.8 g/dL (3.4-5.0); Albumin/Globulin Ratio 0.9 (1.1-1.8); Anion Gap 11.9 mEq/L (5.0-15.0); Bilirubin Total 1.2 mg/dL (0.2-1.0); Globulin 4.3 g/dL (2.3-3.5); Potassium 3.9 mEq/L (3.5-5.1); Protein, Total 8.1 g/dL (6.4-8.2)
[2024-08-29 19:47] LABS: Specific Gravity 1.027 (1.005-1.030); Sqamous Epithelial <5 /HPF (None Seen); Urine Bacteria None Seen /HPF (<20); Urine Bilirubin NEGATIVE (Negative); Urine Blood Negative (Negative); Urine Clarity Clear (Clear); Urine Color Yellow (Yellow); Urine Culture Reflex Order NOT NEEDED; Urine Glucose TRACE (Negative); Urine Ketones TRACE (Negative); Urine Microscopic Reflex YN ORDER UMIC; Urine Mucus Slight /HPF (None Seen); Urine Nitrite NEGATIVE (Negative); Urine Protein 1+ (Negative); Urine RBC <5 /HPF (None Seen); Urine Urobilinogen Normal (Normal); Urine WBC <5 /HPF (<5); Urine pH 5.5 (5.0-7.0)
--- NOTE | 2024-08-29 20:16 | RAD REPORT ---
EXAMINATION: CT ABDOMEN AND PELVIS WITH CONTRAST CLINICAL INDICATION: ABD PAIN TECHNIQUE: CT abdomen and pelvis was performed, after the administration of IV contrast, as per [facility] protocol. Axial, sagittal and coronal reconstructions were obtained. One or more of the following dose reduction techniques were used: Automated exposure control, adjustment of the mA and k V according to patient size, and iterative reconstruction. Unless otherwise specified, incidental findings do not require dedicated imaging follow-up. COMPARISON: No prior exam. FINDINGS: LOWER CHEST: The visualized lung bases are clear. Gastric sleeve postsurgical changes. LIVER: Normal in size and contour. No focal lesion. Cholecystomy clips SPLEEN: Normal size. No focal lesion. PANCREAS: No mass, ductal dilation, or yohannes-pancreatic fluid. ADRENALS: Normal; no mass. KIDNEYS: Normal size and contour. No hydronephrosis. 4.8 cm cyst superior aspect left kidney. GASTROINTESTINAL TRACT: No evidence of free air, significant intra-abdominal free fluid, bowel obstru ction or abscess. APPENDIX: Appendix not visualized, but no inflammatory changes in region of appendix. LYMPH NODES: No lymphadenopathy. MUSCULOSKELETAL: No acute or suspicious osseous abnormality. ADDITIONAL FINDINGS: None. IMPRESSION: No acute or concerning abnormalities seen in the abdomen or pelvis.
[2024-08-29 21:00] LABS: Blood Morphology Comment NOT SEEN (NOT SEEN); Platelet Estimate ADEQ; White Blood Cell Scan OK (OK)
[2024-08-29] MEDS ORDERED: ACETAMINOPHEN 500 MG TAB ONE (21:45)
[2024-08-29] MEDS ORDERED: NA CHLORIDE 0.9% 1,000 ML ONE (22:22)
[2024-08-29 22:43] LABS: SARS-CoV-2 Antigen CONTROL BLUE LINE VIS/BG OK; SARS-CoV-2 Antigen Rapid Res Negative (Negative)
--- NOTE | 2024-08-30 00:01 | EDPHYS ---
Physician Documentation [facility] Name: Cierra Sánchez Age: 59 yrs Sex: Female : 1965 Arrival Date: 08/29/2024 Time: 17:52 Bed 6 Private MD: ED Physician Harsh Downs HPI: 08/29 18:50 This 59 yrs old Female presents to ER via Wheelchair with complaints of Vomiting. sb4 18:50 The patient presents to the emergency department with nausea, vomiting, abdominal pain. sb4 Onset: The symptoms/episode began/occurred yesterday, and became worse today. Possible causes: unknown. The symptoms are aggravated by nothing. The symptoms are alleviated by nothing. Associated signs and symptoms: The patient has no apparent associated signs or symptoms. The patient has not experienced similar symptoms in the past. The patient has not recently seen a physician. abdominal pain started yesterday, worsened yesterday with associated nausea and vomiting. had a loose BM yesterday. Historical: - Allergies: 18:25 No Known Allergies; cm10 - Home Meds: 18:25 aspirin 81 mg Oral tablet 1 tab daily [Active]; losartan 100 mg Oral tab 1 tab once cm10 daily [Active]; Ozempic 2 mg/dose (8 mg/3 mL) subcutaneous Pen Injector 2 mg every week [Active]; Synthroid 112 mcg Oral tablet 1 tab daily for Hypothyroidism [Active]; venlafaxine 150 mg Oral cp24 1 cap once daily [Active]; Vitamin D Oral 7[address]10 unit daily [Active]; - PMHx: 18:25 Diabetes - NIDDM; Hypertension; Hypothyroidism; seasonal allergies; sleep apena; cm10 - Immunization history:: Adult Immunizations up to date. - Infectious Disease History:: Denies. - Social history:: Smoking status: Patient denies any tobacco usage or history of. ROS: 18:50 Constitutional: Negative for fever, chills, and weight loss, sb4 18:50 Abdomen/GI: Positive for abdominal pain, nausea and vomiting, 18:50 All other systems are negative, Exam: 18:50 Head/Face: Normocephalic, atraumatic. Eyes: Extra-ocular motions intact. Periorbital sb4 areas with no swelling, redness, or edema. ENT: Mucous membranes moist. Cardiovascular: Regular rate and rhythm with a normal S1 and S2. Respiratory: No increased work of breathing, no retractions or nasal flaring. Abdomen/GI: Soft, non-tender, no distension. Skin: Warm, dry with normal turgor. Normal color with no rashes, no lesions, and no evidence of cellulitis. 18:50 Constitutional: The patient appears alert, awake, obviously ill, uncomfortable, Vital Signs: 18:24 BP 131 / 87; Pulse 110; Resp 18; Temp 98.8(O); Pulse Ox 98% on R/A; Weight 82.55 kg; cm10 Height 5 ft. 8 in. ; Pain 6/10; 19:30 BP 144 / 88; Pulse 103; Resp 16; Pulse Ox 98% ; dd2 21:59 BP 115 / 85; Pulse 104; Resp 18; Pulse Ox 100% on R/A; af3 22:11 BP 116 / 75; Pulse 104; Resp 16; Pulse Ox 99% ; dd2 23:32 BP 116 / 70; Pulse 116; Resp 16; Pulse Ox 99% ; dd2 08/30 00:31 BP 115 / 72; Pulse 96; Resp 16; Temp 98.3; Pulse Ox 100% on R/A; Pain 1/10; dd2 08/29 18:24 Body Mass Index 27.67 (82.55 kg, 172.72 cm) cm10 08/29 18:24 Pain Scale: Adult cm10 08/30 00:31 Pain Scale: Adult dd2 Nicole Coma Score: 08/29 19:30 Eye Response: spontaneous(4). Motor Response: obeys commands(6). Verbal Response: dd2 oriented(5). Total: 15. MDM: 18:29 Medical Screening Exam initiated sb4 08/30 00:17 Data reviewed: vital signs, nurses notes, lab test result(s), radiologic studies, and sb4 as a result, I will discharge patient. Counseling: I had a detailed discussion with the patient and/or guardian regarding the historical points, exam findings, and any diagnostic results supporting the discharge/admit diagnosis, lab results, radiology results, to return to the emergency department if symptoms worsen or persist or if there are any questions or concerns that arise at home. 08/29 18:25 Order name: CBC with Diff; Complete Time: 21:18 sb4 08/29 18:25 Order name: CMP; Complete Time: 19:59 sb4 08/29 18:25 Order name: Lipase; Complete Time: 19:59 sb4 08/29 18:25 Order name: Urinalysis w/ reflexes; Complete Time: 19:59 sb4 08/29 21:01 Order name: CBC Smear Scan; Complete Time: 21:18 EDMS 08/29 21:50 Order name: SARS RAPID; Complete Time: 22:44 sb4 08/29 21:50 Order name: Flu; Complete Time: 22:44 sb4 08/29 18:29 Order name: CT Abd/Pelvis - IV Contrast Only; Complete Time: 20:18 sb4 08/29 22:55 Order name: EKG; Complete Time: 22:55 sb4 08/29 18:25 Order name: IV Saline Lock; Complete Time: 19:24 sb4 08/29 18:25 Order name: Labs collected and sent; Complete Time: 19:24 sb4 08/29 20:19 Order name: PO challenge; Complete Time: 21:50 sb4 08/29 22:55 Order name: EKG - Nurse/Tech; Complete Time: 23:37 sb4 EC:08 Rate is 111 beats/min. Rhythm is regular, Sinus tachycardia. WA interval is normal at sb4 152 msec. QRS interval is normal at 90 msec. QT interval is normal at 356 msec. No Q waves. T waves are Normal. No ST changes noted. Clinical impression: Sinus tachycardia. Interpreted by me. Reviewed by me. Administered Medications: 08/29 19:45 Drug: Ondansetron IVP 4 mg IVP once; over 2 minutes Route: IVP; Site: right antecubital;dd2 20:00 Follow up: Response: No adverse reaction dd2 21:50 Drug: Acetaminophen PO 1000 mg PO once Route: PO; dd2 22:05 Follow up: Response: No adverse reaction dd2 22:26 Drug: NS 0.9% IV 1000 ml IV at 1000 ml once; to be given as a bolus over 60 minutes lg3 Route: IV; Rate: 1000 ml; Site: right antecubital; 22:41 Follow up: Response: No adverse reaction dd2 23:26 Follow up: IV Status: Completed infusion; IV Intake: 1000ml dd2 Disposition Summary: 08/30/24 00:01 Discharge Ordered Notes: Location: Home sb4 Problem: new sb4 Symptoms: have improved sb4 Condition: Stable sb4 Diagnosis - Nausea with vomiting, unspecified sb4 - Viral gastroenteritis sb4 Followup: sb4 - With: Emergency Department - When: As needed - Reason: Trouble breathing, Worsening of condition Discharge Instructions: - Discharge Summary Sheet sb4 - Nausea and Vomiting, Adult sb4 - Viral Gastroenteritis, Adult, [id number] sb4 Forms: - Patient Portal Instructions sb4 - Leadership Thank You Letter sb4 Prescriptions: - dicyclomine 20 mg Oral tablet - take 1 tablet ORAL route every 8 hours; 20 tablet; Refills: 0, Product sb4 Selection Permitted - ondansetron 8 mg Oral Tablet,disintegrating - take 1 tablet ORAL route every 8 hours; 10 tablet; Refills: 0, Product sb4 Selection Permitted Signatures: Dispatcher [employer] EDMS Linda Aguilar RN RN lg3 Juanis Munroe PA-C PA-C sb4 Catalina Beltran RN RN cm10 JOE HURTADO RN RN dd2 Corrections: (The following items were deleted from the chart) 18:30 18:30 Abdomen Pelvis W Con+CT.RAD.BRZ ordered. EDMS EDMS 21:50 21:50 SARS-COV-2 Antigen Rapid+I.LAB.BRZ ordered. EDMS EDMS 21:50 21:50 Influenza Screen (A \T\ B)+BA.LAB.BRZ ordered. EDMS EDMS
--- NOTE | 2024-08-30 00:01 | ER ---
Nurse's Notes [facility] Name: Cierra Sánchez Age: 59 yrs Sex: Female : 1965 Arrival Date: 08/29/2024 Time: 17:52 Bed 6 Private MD: Diagnosis: Nausea with vomiting, unspecified;Viral gastroenteritis Presentation: 08/29 18:24 Chief complaint: Patient states: Vomiting and abdominal pain onset yesterday. cm10 Coronavirus screen: Client denies travel out of the [place] in the last 14 days. Ebola Screen: Patient denies travel to an Ebola-affected area in the 21 days before illness onset. No symptoms or risks identified at this time. Initial Sepsis Screen: Does the patient meet any 2 criteria? HR > 90 bpm. Does the patient have a suspected source of infection? No. Patient's initial sepsis screen is negative. Risk Assessment: Do you want to hurt yourself or someone else? Patient reports no desire to harm self or others. Onset of symptoms was August 29, 2024. 18:24 Method Of Arrival: Wheelchair cm10 18:24 Acuity: EMI 3 cm10 Triage Assessment: 18:26 General: Appears in no apparent distress. uncomfortable, Behavior is calm, cooperative. cm10 Pain: Complains of pain in abdomen Pain currently is 6 out of 10 on a pain scale. Neuro: No deficits noted. Level of Consciousness is awake, alert, obeys commands, Oriented to person, place, time, situation, Appropriate for age. Respiratory: No deficits noted. Airway is patent Respiratory effort is even, unlabored, Respiratory pattern is regular, symmetrical. 08/30 00:33 GI: Reports. dd2 Historical: - Allergies: 08/29 18:25 No Known Allergies; cm10 - Home Meds: 18:25 aspirin 81 mg Oral tablet 1 tab daily [Active]; losartan 100 mg Oral tab 1 tab once cm10 daily [Active]; Ozempic 2 mg/dose (8 mg/3 mL) subcutaneous Pen Injector 2 mg every week [Active]; Synthroid 112 mcg Oral tablet 1 tab daily for Hypothyroidism [Active]; venlafaxine 150 mg Oral cp24 1 cap once daily [Active]; Vitamin D Oral 8[address]08 unit daily [Active]; - PMHx: 18:25 Diabetes - NIDDM; Hypertension; Hypothyroidism; seasonal allergies; sleep apena; cm10 - Immunization history:: Adult Immunizations up to date. - Infectious Disease History:: Denies. - Social history:: Smoking status: Patient denies any tobacco usage or history of. Screenin:25 [facility] ED Fall Risk Assessment (Adult) History of falling in the last 3 months, dd2 including since admission No falls in past 3 months (0 pts) Confusion or Disorientation No (0 pts) Intoxicated or Sedated No (0 pts) Impaired Gait No (0 pts) Mobility Assist Device Used No (0 pt) Altered Elimination No (0 pt) Score/Fall Risk Level 0 - 2 = Low Risk Oriented to surroundings, Maintained a safe environment, Educated pt \T\ family on fall prevention, incl call for assistance when getting out of bed, Assessed \T\ reinforced patient's understanding of fall precautions, Hourly rounding (assess needs \T\ fall precautionary measures) done. Abuse screen: Denies threats or abuse. Nutritional screening: No deficits noted. Tuberculosis screening: No symptoms or risk factors identified. Assessment: 19:30 General: Appears uncomfortable, Behavior is cooperative, appropriate for age, quiet. dd2 Pain: Complains of pain in right lower quadrant and left lower quadrant Pain currently is 8 out of 10 on a pain scale. Neuro: Level of Consciousness is awake, alert, obeys commands, Oriented to person, place, time, situation, Appropriate for age. Cardiovascular: Patient's skin is warm and dry. Respiratory: Airway is patent Respiratory effort is even, unlabored, Respiratory pattern is regular, symmetrical. GI: Abdomen is non-distended, Bowel sounds present X 4 quads. Abdomen is tender to palpation in right lower quadrant and left lower quadrant. : No deficits noted. No signs and/or symptoms were reported regarding the genitourinary system. EENT: No deficits noted. No signs and/or symptoms were reported regarding the EENT system. Derm: No deficits noted. No signs and/or symptoms reported regarding the dermatologic system. Musculoskeletal: No deficits noted. No signs and/or symptoms reported regarding the musculoskeletal system. Circulation, motion, and sensation intact. Range of motion: intact in all extremities. 08/30 00:31 Reassessment: Patient is alert, oriented x 3, equal unlabored respirations, skin dd2 warm/dry/pink. Patient states feeling better. Patient states symptoms have improved. Vital Signs: 08/29 18:24 BP 131 / 87; Pulse 110; Resp 18; Temp 98.8(O); Pulse Ox 98% on R/A; Weight 82.55 kg; cm10 Height 5 ft. 8 in. ; Pain 10; 19:30 BP 144 / 88; Pulse 103; Resp 16; Pulse Ox 98% ; dd2 21:59 BP 115 / 85; Pulse 104; Resp 18; Pulse Ox 100% on R/A; af3 22:11 BP 116 / 75; Pulse 104; Resp 16; Pulse Ox 99% ; dd2 23:32 BP 116 / 70; Pulse 116; Resp 16; Pulse Ox 99% ; dd2 08/30 00:31 BP 115 / 72; Pulse 96; Resp 16; Temp 98.3; Pulse Ox 100% on R/A; Pain /10; dd2 08/29 18:24 Body Mass Index 27.67 (82.55 kg, 172.72 cm) cm10 08/29 18:24 Pain Scale: Adult cm10 08/30 00:31 Pain Scale: Adult dd2 Nicole Coma Score: 08/29 19:30 Eye Response: spontaneous(4). Motor Response: obeys commands(6). Verbal Response: dd2 oriented(5). Total: 15. ED Course: 17:55 Patient arrived in ED. ra3 17:56 Juanis Munroe PA-C is PHCP. sb4 17:56 Harsh Downs MD is Attending Physician. sb4 18:25 Triage completed. cm10 18:26 Arm band placed on right wrist. Patient placed in waiting room. cm10 19:24 JOE HURTADO, RN is Primary Nurse. dd2 19:25 Patient has correct armband on for positive identification. Placed in gown. Bed in low dd2 position. Call light in reach. Side rails up X2. Client placed on continuous cardiac and pulse oximetry monitoring. NIBP monitoring applied. Door closed. Noise minimized. Warm blanket given. Pillow given. Verbal reassurance given. 19:25 CBC with Diff Sent. dd2 19:25 CMP Sent. dd2 19:25 Lipase Sent. dd2 19:25 No provider procedures requiring assistance completed. Initial lab(s) drawn, by me, dd2 sent to lab. Inserted saline lock: 20 gauge in right antecubital area, using aseptic technique. Blood collected. Flushed with 10 mL NS. Patient maintains SpO2 saturation greater than 95% on room air. 19:59 CT Abd/Pelvis - IV Contrast Only In Process Unspecified. EDMS 22:00 Flu Sent. af3 22:00 SARS RAPID Sent. af3 23:37 EKG done, by ED staff. vk 08/30 00:31 Provided Education on: D/C INSTRUCTIONS, MEDICATIONS. dd2 00:31 IV discontinued, intact, bleeding controlled, No redness/swelling at site. Pressure dd2 dressing applied. Administered Medications: 08/29 19:45 Drug: Ondansetron IVP 4 mg IVP once; over 2 minutes Route: IVP; Site: right antecubital;dd2 20:00 Follow up: Response: No adverse reaction dd2 21:50 Drug: Acetaminophen PO 1000 mg PO once Route: PO; dd2 22:05 Follow up: Response: No adverse reaction dd2 22:26 Drug: NS 0.9% IV 1000 ml IV at 1000 ml once; to be given as a bolus over 60 minutes lg3 Route: IV; Rate: 1000 ml; Site: right antecubital; 22:41 Follow up: Response: No adverse reaction dd2 23:26 Follow up: IV Status: Completed infusion; IV Intake: 1000ml dd2 Medication: 22:11 VIS not applicable for this client. dd2 Intake: 23:26 IV: 1000ml; Total: 1000ml. dd2 Outcome: 08/30 00:01 Discharge ordered by . sb4 00:31 Discharged to home via wheelchair, dd2 00:31 Condition: stable 00:31 Discharge instructions given to patient, Instructed on discharge instructions, follow up and referral plans. medication usage, Demonstrated understanding of instructions, follow-up care, medications, Prescriptions given X 2, 00:33 Patient left the ED. dd2 Signatures: Dispatcher [employer] EDMS Linda Aguilar RN RN [email or web address] Juanis Munroe PA-C PA-C sb4 Catalina Beltran, RN RN cm10 Raven Bonilla Vivian vk Fry, Ashley af3 JOE HURTADO RN RN dd2
[2024-08-30 06:12] VITALS: BP 115/72; TEMP 98.3; O2SAT 100
--- NOTE | 2024-09-01 11:39 | EKG ---
Test Date: 2024-08-29 Test Time: 23:36:08 [employer] Cellar Worker: ABIMBOLA MEASUREMENT RESULTS: Intervals: Rate: 111 VA: 152 QRSD: 90 QT: 356 QTc: 484 [place]: P: 44 VA: 152 QRS: 68 T: 44 INTERPRETIVE STATEMENTS: Sinus tachycardia Otherwise normal ECG Compared to ECG 04/04/2024 19:20:20 Sinus rhythm no longer present Electronically Signed On 09-01-24 11:34:48 [employer] PROJECT MANAGER by Emeterio Talbert
== END 2024-08-30 00:33 | disposition home or self-care (01) ==
LOC: ER 17:52
DX: A08.4 Viral intestinal infection, unspecified (principal); E11.9 Type 2 diabetes mellitus without complications; I10 Essential (primary) hypertension; E03.9 Hypothyroidism, unspecified; Z11.52 Encounter for screening for COVID-19
CPT/HCPCS: 96361; 93005; 85025; 81001; 36415; 83690; 80053; 87804 ×2; 74177; 96374; 99285; 87811; Q9967; J2405; J7030